=== PATIENT | male | born 1970 | race Caucasian/White ===

== ENCOUNTER → 2017-01-12 | Day surgery (SDC) | payer BC ==
[~2017-01-12] VITALS: Ht 175.3 cm; Wt 120.4 kg
[~2017-01-12] MED LIST: ACET-1256 PO; ACETAMINOPHEN 325 MG TAB PO PRN; ASPI1TAB83 PO; ATOR-24 PO; ATROPINE SULFATE 0.1 MG/ML 5ML SYR IV PRN; CHOL2000 PO; CITA20TA9 PO; CLR10 PO; FENTANYL CITRATE INJ 50 MCG/1 ML 2 ML VIAL ONE; FLUT0.15; FOLI1TAB7 PO; HEPARIN SOD (PORCINE) 1000 UNIT/ML 10 ML VIAL ONE; IMDSR30 PO; ISOSORBIDE MONONITRATE 30 MG TABCR PO SCH; LEVO1TAB35 PO; METO25TA3 PO; METO50TA16 PO; METO50TA7 PO; METOPROLOL SUCC 25MG EXT REL TAB PO ONE; METOPROLOL SUCC 50MG EXT REL TAB PO ONE; METOPROLOL SUCC 50MG EXT REL TAB PO SCH; MIDAZOLAM HCL 1 MG/ML 2ML VIAL ONE; NITROGLYCERIN/D5W 100MCG/ML 20ML SYR ONE; NTRGSL/4 SL; NiCARDipine HCL INJ 2.5 MG/ML 10 ML AMP ONE; ONDANSETRON INJ 2 MG/ML 2 ML VIAL IV PRN; PATIENT'S ALLERGY INFO NEEDS ENTERED SCH; PRLSR20 PO; SODIUM CHLORIDE 0.9% 1000ML 250 ML IV PRN; TPRSR50 PO
[2017-01-12 07:31] VITALS: BP 149/68; PULSE 68; TEMP 36.6; O2SAT 98; Ht 175.3 cm; Wt 120.4 kg
--- NOTE | 2017-01-12 07:56 | Procedure Note ---
Pre-Mod Sedation Assessment General Date of Moderate Sedation: January 12, 2017. Vital Signs: Vital Signs Past 12 Hours Date Time Temp Pulse Resp B/P Pulse Ox O2 Delivery O2 Flow Rate FiO2 01/12/17 07:31 36.6 68 16 149/68 98 Room Air Review Cardiovascular: regular rate, rhythm, no edema, no gallop Abdomen: normal bowel sounds, non tender, soft Lungs: chest non-tender, lungs clear, normal breath sounds Pre-Sedation Airway Assessment Oral Cavity: WNL Short Thick Neck: No Hx of Sleep Apnea: No Smoking Status: Never Smoker Mallampati Classification: Class III ASA Classification: Class II Procedure Planning Contraindications-for Mod Sed: None Yes Notes The planned sedation has been discussed with the patient and consent obtained. I have identified the patient, determined the appropriateness of sedation and have assessed the patient immediately prior to the procedure. All medicine(s) and interventions are by my order.
--- NOTE | 2017-01-12 07:57 | History & Physical Bridge Note ---
H&P Re-Evaluation Bridge Note: I have examined the patient, reviewed the History & Physical and in the interval since the performance of the History & Physical I have noted the following changes of clinical significance: No changes noted
--- NOTE | 2017-01-12 09:36 | Cardiac Catheterization ---
Procedure Note Procedure Date January 12, 2017. Pre-Procedure Diagnosis Angina Post-Procedure Diagnosis Severe CAD Procedure(s) Performed Coronary Angiography (Start time 08, Stop time 09, sedation RN Mary, Moderate sedation), Left Heart Cath Tack Driller Dr. Puckett Planning Feeder(s) Clarice NUTRITION SERVICES AIDE Estimated Blood Loss 5cc Medication(s) Fentanyl (37.5mcg), Versed (3mg), Lidocaine 1% Summary of Findings Multivessel CAD Hemodynamics Rest Ao: 133/80/99 Final Ao: 118/80/98 LV: 119/5/7 Recommendations CABG Specimens None Radiation Exposure (mGy) 1652 Contrast (mls) 95 Procedural Complication(s) None Disposition Web Site Developer Holding/Recovery ACC Data Cardiac Status Clinical evaluation leading to the procedure CAD Presntation: Stable angina Anginal Classification: CCS II Heart Failure: No Cardiogenic Shock w/in 24Hrs: No Cardiac Arrest w/in 24Hrs: No Imaging studies past 6 months: Yes Stress studies past 6 months: Yes Stress Echocardiogram: Yes - Negative Coronary Anatomy Dominant: Right Left Main (% Stenosis): Normal LAD (% Stenosis): Ostial (10%), Proximal (10%), Mid (90% followed by severe diffuse disease through the mid- distal segements) D1 (% Stenosis): Ostial (small caliber vessel with severe proximal-ostial disease) D2 (% Stenosis): Ostial (Moderate caliber vessel with severe (hazy appearance) ostial stenosis ), Mid (50%) Circumflex (% Stenosis): Ostial (30%), Proximal (80%), Mid (80%), Distal (10%) OM1 (% Stenosis): Mid (90%) L PL1 (% Stenosis): Ostial (Mild luminal irregularities (10%)) RCA (% Stenosis): Ostial (0%), Proximal (0%), Mid (50% followed by 70%), Distal (80% distal to PDA ) R PDA (% Stenosis): Ostial (30-40% ostial to proximal), Mid (0%), Distal R PL1 (% Stenosis): Ostial (Small vessel with mild luminal irregularities (10%) ) Diagnostic Status: Elective Closure Device Percutaneous Entry Location: Femoral Closure Device: Mynx Intraprocedure Events Significant Dissection: No Perforation: No
--- NOTE | 2017-01-12 10:33 | Discharge Instructions ---
Discharge Instructions Procedure Procedure Date: January 12, 2017. Reason for Visit: *Dr Puckett To Do* Chest Pain. Discharge Discharge Date: January 12, 2017. Discharge Diagnosis: Multivessel CAD Last Recorded Wt (Kilograms): 120.4 Anesthesia Post Anesthesia Instructions: If you have had General Anesthesia or IV Sedation: * Do not drive today. * Resume driving when surgeon permits. * Do not make important decisions or sign legal documents today. * Call surgeon for: 1. Temperature elevations greater than 101 degrees F. 2. Uncontrollable pain. 3. Excessive bleeding. 4. Persistent nausea and vomiting. 5. Medication intolerance (nausea, vomiting or rash). * For nausea and vomiting use only clear liquids such as: tea, soda, bouillon until nausea subsides, then gradually increase diet as tolerated. * If you have any concerns or questions, call your surgeon's office. If physician is unavailable and it is an emergency, call 911 or go to the nearest emergency room. Instructions Activity Recommendations: limitations as noted below Return to School/Work: with the following limitations (Patient may not return to work until cleared by cardiology) Recommended Home Diet: low sodium, low cholesterol Provider Instructions ACTIVITY RECOMMENDATIONS: It is common to feel weak and fatigue for a few days. * Do not drive or operate any motorized equipment for the next three days. * Limit stair usage (2 or 3 trips a day only) for the next three days. * Do not lift anything heavier than 10 pounds for the next three days. * Do not engage in vigorous exercise or any sports for the next five days. * You may shower the day after your procedure, but do not immerse the area for three days. Cleanse the site gently with soap and water. SPECIAL CARE INSTRUCTIONS: * You may replace the pressure dressing or band-aid the morning after the procedure. * After your procedure, it is normal to have a small bruise or small lump at the site. Examine your site daily for any change in the bruise or lump, redness, swelling, drainage or numbness. Notify your doctor if any change. BLEEDING: * If there is a small amount of bleeding at the site, lie down and apply firm pressure with a clean cloth for ten minutes. When the bleeding stops, lie quietly keeping the procedure limb straight for six hours. Notify your doctor as soon as possible. * If the bleeding does not stop after ten minutes or if there is a large amount of bleeding or spurting, call 911 immediately. Continue to lie down and hold firm pressure until help arrives. SKIN IRRITATION: * You may experience some redness and/or swelling in the area where radiation was administered. If any skin irritation occurs, please contact your family physician. FOLLOW UP VISIT: Keep any scheduled doctor appointments. Follow Up Follow-up with: Cardiothoracic Surgery as scheduled Zachary Alva Recommendations: Call your doctor if: * Temperature above 101 degrees * Pain not relieved by pain medicine ordered * There is increased drainage or redness from any incision * You have any unanswered questions or concerns. Your Doctors Instructions noted above were prepared by provider Juwan Puckett. Patient Signature Section: Patient Instructions Signature Page Mike Chaparro Patient (or Guardian) Signature/Date: I have read and understand the instructions given to me by my caregivers. Caregiver/RN/Doctor Signature/Date: The above-named patient and/or guardian has received patient instructions on this date. + Original Patient Signature Page (only) stays with chart. Please make copy for patient.
--- NOTE | 2017-01-12 10:39 | Procedure Note ---
Post-Mod Sedation Assessment General Date of Moderate Sedation January 12, 2017. Vital Signs: Vital Signs Past 12 Hours Date Time Temp Pulse Resp B/P Pulse Ox O2 Delivery O2 Flow Rate FiO2 01/12/17 10:00 71 16 166/89 95 Room Air 01/12/17 09:45 75 16 145/98 95 Room Air 01/12/17 09:30 71 16 157/97 95 Room Air 01/12/17 09:20 71 16 148/95 95 Room Air 01/12/17 09:15 70 16 144/104 95 Room Air 01/12/17 09:10 Room Air 01/12/17 09:05 71 16 150/92 96 Room Air 01/12/17 07:31 36.6 68 16 149/68 98 Room Air Review - Discharge Criteria Vital Signs Stable: Yes Alert/Oriented/Conversant: Yes Returned to Baseline Mental St: Yes Nausea Absent/Minimal: Yes Pain/Discomfort/Absent/Minimal: Yes Normal/Baseline Respirations: Yes Active Bleeding?: No Pt Received D/C Instructions: Yes Prescriptions Given: Transmitted Specific Proced. D/C Criteria Distal Pulses Present (Cardiac: Yes Groin site assessed-Card Cath: Yes Voided Prior To Discharge: Yes Discharged Patients Adult Escort/Transportation: Yes
[2017-01-12 13:00] VITALS: BP 152/90; PULSE 71; O2SAT 95
== END | disposition home or self-care (01) ==
LOC: C.CATH 07:07
PROVIDERS: ATTEND Internal Medicine Cardiovascular Disease
DX: I25.10 Atherosclerotic heart disease of native coronary artery without angina pectoris (principal); I10 Essential (primary) hypertension; E78.5 Hyperlipidemia, unspecified; F43.21 Adjustment disorder with depressed mood; E66.9 Obesity, unspecified; Z82.49 Family history of ischemic heart disease and other diseases of the circulatory system; Z79.899 Other long term (current) drug therapy

== ENCOUNTER 2017-04-02 13:04 | Emergency (ER) | payer BC ==
[~2017-04-02] VITALS: Ht 175.3 cm; Wt 110.8 kg
[~2017-04-02 13:04] MED LIST changes: -ACET-1256 PO; -ACETAMINOPHEN 325 MG TAB PO PRN; -ATROPINE SULFATE 0.1 MG/ML 5ML SYR IV PRN; -CHOL2000 PO; -FENTANYL CITRATE INJ 50 MCG/1 ML 2 ML VIAL ONE; -FOLI1TAB7 PO; -HEPARIN SOD (PORCINE) 1000 UNIT/ML 10 ML VIAL ONE; -ISOSORBIDE MONONITRATE 30 MG TABCR PO SCH; -LEVO1TAB35 PO; -METO25TA3 PO; -METO50TA16 PO; -METO50TA7 PO; -METOPROLOL SUCC 25MG EXT REL TAB PO ONE; -METOPROLOL SUCC 50MG EXT REL TAB PO ONE; -METOPROLOL SUCC 50MG EXT REL TAB PO SCH; -MIDAZOLAM HCL 1 MG/ML 2ML VIAL ONE; -NITROGLYCERIN/D5W 100MCG/ML 20ML SYR ONE; -NiCARDipine HCL INJ 2.5 MG/ML 10 ML AMP ONE; -ONDANSETRON INJ 2 MG/ML 2 ML VIAL IV PRN; -PATIENT'S ALLERGY INFO NEEDS ENTERED SCH; -SODIUM CHLORIDE 0.9% 1000ML 250 ML IV PRN
[2017-04-02 13:13] VITALS: TEMP 36.6; Ht 175.3 cm; Wt 110.8 kg
--- NOTE | 2017-04-02 14:58 | DIAGNOSTIC IMAGING REPORT ---
CHEST ONE VIEW PORTABLE HISTORY: 47 years-old Male presents with acute chest and left neck pain, worse with inspiration. COMPARISON: None available TECHNIQUE: Portable upright AP view of the chest FINDINGS: Cardiac silhouette is moderately enlarged. Prior median sternotomy. There is moderate right hemidiaphragmatic elevation with linear bibasilar opacities suggesting atelectasis. No pneumothorax, large pleural effusion or lobar airspace consolidation. Surgical clips project over the left upper abdomen. The bones appear grossly intact. IMPRESSION: 1. Cardiomegaly without overt pulmonary edema. 1. Right hemidiaphragmatic elevation with linear subsegmental bibasilar opacities suggesting atelectasis. The above report was generated using voice recognition software. It may contain grammatical, syntax or spelling errors. Electronically signed by: Matthew Zapata M.D. 04/02/2017 2:56 PM Dictated Date/Time: 04/02/2017 2:55 PM
[2017-04-02 15:25] LABS: BASO % 0.4 %; BASO ABS # 0.03 K/uL (0-0.2); COMPLETE YES; HEMATOCRIT 41.5 % (42-52); IG% 0.3 %; LYMPH % 27.7 %; LYMPH ABS # 2.13 K/uL (1.2-3.4); MEAN CELL VOLUME 84.3 fL (80-100); MEAN CORPUSCULAR HEMOGLOBIN 28.7 pg (25-34); MEAN PLATELET VOLUME 9.8 fL (7.4-10.4); MONO % 10.5 %; NEUT % 60.1 %; PLATELET COUNT 272 K/uL (130-400); RED BLOOD COUNT 4.92 M/uL (4.7-6.1); WHITE BLOOD COUNT 7.69 K/uL (4.8-10.8)
[2017-04-02 16:05] LABS: BUN/CREATININE RATIO 16.3 (10-20); CALCIUM 8.7 mg/dl (8.5-10.1); CREATININE 0.79 mg/dl (0.60-1.40); POTASSIUM 3.7 mmol/L (3.5-5.1)
[2017-04-02] MEDS ORDERED: OPTIRAY 320 IV PRN (17:45)
--- NOTE | 2017-04-02 17:47 | DIAGNOSTIC IMAGING REPORT ---
CHEST CTA for PULMONARY ARTERIES CT DOSE: 664.83 mGy.cm HISTORY: Right-sided chest pain. TECHNIQUE: Multiaxial CT images of the chest were performed following the intravenous administration of contrast to evaluate the pulmonary arteries. Maximal intensity projection images were also obtained. A dose lowering technique was utilized adhering to the principles of ALARA. COMPARISON STUDY: Chest 04/02/2017. FINDINGS: Normal caliber thoracic aorta with no evidence for dissection. The patient is status post recent coronary artery bypass graft. The grafts appear patent. Poststernotomy changes. Small pericardial effusion and trace left pleural effusion. Elevation of the right hemidiaphragm. The heart is borderline enlarged. Mild motion artifact. However, no definite filling defects within the pulmonary arteries to suggest pulmonary embolus. The visualized liver, spleen, and adrenal glands are unremarkable. No mediastinal or hilar lymphadenopathy. The central airways are patent. No pneumothorax. Patchy densities at the left lower lobe posteriorly favor mild dependent change. Linear densities within the right upper lobe are also consistent with subsegmental atelectasis. Focal area of dense consolidation at the base of the right middle lobe and right lower lobe. This likely represents atelectasis, possibly due to the elevated right hemidiaphragm. IMPRESSION: 1. No evidence for pulmonary embolus. 2. Status post recent coronary artery bypass graft. 3. Small pericardial effusion. 4. Trace left pleural effusion. 5. Elevated right hemidiaphragm with focal area of dense consolidation at the base of the right middle lobe and right lower lobe. This favors compressive atelectasis. A pneumonia could also have a similar appearance. Electronically signed by: Edwin Boyer M.D. 04/02/2017 5:45 PM Dictated Date/Time: 04/02/2017 5:34 PM
[2017-04-02] MEDS ORDERED: LEVO1TAB35 PO (18:25)
[2017-04-02] MEDS ORDERED: LEVOFLOXACIN 250 MG TAB PO ONE (18:30)
[2017-04-02 18:45] VITALS: BP 155/88; PULSE 80; O2SAT 95
--- NOTE | 2017-04-02 19:48 | EMERGENCY ROOM VISIT NOTE ---
History Report prepared by Ruslan: Bruce Cadet Under the Supervision of: Dr. Quinton Samson D.O. First contact with patient: 14:15 Chief Complaint: NECK PAIN Stated Complaint: LEFT NECK PAIN W/DEEP BREATH History of Present Illness The patient is a 47 year old male who presents to the Emergency Room with complaints of moderate left upper chest pain that began 2 days ago. His pain is exacerbated whenever he takes a deep breath. Pain is located under his first rib. When he breaths heavily, his pain also radiated down his left ribs. He has recently been more chilled than normal and sore. He denies any nausea, vomiting, diarrhea, and leg swelling. He also has been experiencing some rhinorrhea and a cough that began a couple of days ago. He has been coughing up a productive sputum but is unsure what color. He has a past medical history of a quadruple bypass open heart surgery 2 months ago. He is not on any blood thinners, does not smoke, and is trying to be more active. He also has a history of hyperlipidemia. Denies a history of diabetes, hypertension, smoking or CAD. Denies history of swelling of his legs, coughing up blood, recent trips but does admit to a recent surgery/cardiac bypass. Source of History: patient Onset: 2 days ago Position: neck Symptom Intensity: moderate Quality: sharp Timing: constant Modifying Factors (Worsening): breathing Associated Symptoms: + chills, + chest pain (left rib pain with deep inhalation), No nausea, No vomiting, No diarrhea Review of Systems See HPI for pertinent positives & negatives. A total of 10 systems reviewed and were otherwise negative. Past Medical & Surgical Medical Problems: (1) Hyperlipidemia Surgical Problems: (1) History of quadruple bypass Family History Omitted secondary to age. Social History Smoking Status: Never Smoker Smokeless Tobacco Use: No Drug Use: none Marital Status: Housing Status: lives with family Occupation Status: employed Current/Historical Medications Scheduled Aspirin (Aspirin), 1 TAB PO DAILY Atorvastatin (Lipitor), 2 TAB PO HS Citalopram Hydrobromide (Celexa), 1 TAB PO DAILY Fluticasone Propionate (Nasal) (Flonase Allergy Relief), 2 SPRAYS NA DAILY Levofloxacin (Levaquin), 750 MG PO QD@08 Loratadine (Claritin), 10 MG PO DAILY Metoprolol Succinate (Metoprolol Succinate ER), 50 MG PO QAM Nitroglycerin (Nitrostat), 1 TAB SL UD Allergies Coded Allergies: No Known Allergies (Unverified , 04/02/17) Physical Exam Vital Signs Date Time Temp Pulse Resp B/P (MAP) Pulse Ox O2 Delivery O2 Flow Rate FiO2 04/02/17 18:45 80 18 155/88 95 04/02/17 17:13 80 18 153/108 94 Room Air 04/02/17 15:15 74 18 135/88 94 Room Air 04/02/17 13:13 36.6 80 18 147/98 94 Room Air Physical Exam GENERAL: alert, well appearing, well nourished, no distress, non-toxic, sitting up in bed EYE EXAM: normal conjunctiva OROPHARYNX: no exudate, no erythema, lips, buccal mucosa, and tongue normal and mucous membranes are moist NECK: supple, no nuchal rigidity, no adenopathy, non-tender LUNGS: Faint crackles in the right base. Normal chest wall mechanics HEART: no murmurs, S1 normal and S2 normal CHEST: Old midline incision, appears to be clean, dry, and intact. ABDOMEN: abdomen soft, non-tender, normo-active bowel sounds, no masses, no rebound or guarding. BACK: Back is symmetrical on inspection and there is no deformity, no midline tenderness, no CVA tenderness. SKIN: no rashes and no bruising UPPER EXTREMITIES: upper extremities are grossly normal. LOWER EXTREMITIES: No pitting edema. Calves are equal bilaterally. NEURO EXAM: Normal sensorium, cranial nerves II-XII grossly intact, normal speech, no gross weakness of arms, no gross weakness of legs. Medical Decision & Procedures ER Provider Diagnostic Interpretation: Radiology results as stated below per my review and the radiologist's interpretation: CHEST ONE VIEW PORTABLE HISTORY: 47 years-old Male presents with acute chest and left neck pain, worse with inspiration. COMPARISON: None available TECHNIQUE: Portable upright AP view of the chest FINDINGS: Cardiac silhouette is moderately enlarged. Prior median sternotomy. There is moderate right hemidiaphragmatic elevation with linear bibasilar opacities suggesting atelectasis. No pneumothorax, large pleural effusion or lobar airspace consolidation. Surgical clips project over the left upper abdomen. The bones appear grossly intact. IMPRESSION: 1. Cardiomegaly without overt pulmonary edema. 1. Right hemidiaphragmatic elevation with linear subsegmental bibasilar opacities suggesting atelectasis. The above report was generated using voice recognition software. It may contain grammatical, syntax or spelling errors. Electronically signed by: Matthew Zapata M.D. 04/02/2017 2:56 PM Dictated Date/Time: 04/02/2017 2:55 PM CHEST CTA for PULMONARY ARTERIES CT DOSE: 664.83 mGy.cm HISTORY: Right-sided chest pain. TECHNIQUE: Multiaxial CT images of the chest were performed following the intravenous administration of contrast to evaluate the pulmonary arteries. Maximal intensity projection images were also obtained. A dose lowering technique was utilized adhering to the principles of ALARA. COMPARISON STUDY: Chest 04/02/2017. FINDINGS: Normal caliber thoracic aorta with no evidence for dissection. The patient is status post recent coronary artery bypass graft. The grafts appear patent. Poststernotomy changes. Small pericardial effusion and trace left pleural effusion. Elevation of the right hemidiaphragm. The heart is borderline enlarged. Mild motion artifact. However, no definite filling defects within the pulmonary arteries to suggest pulmonary embolus. The visualized liver, spleen, and adrenal glands are unremarkable. No mediastinal or hilar lymphadenopathy. The central airways are patent. No pneumothorax. Patchy densities at the left lower lobe posteriorly favor mild dependent change. Linear densities within the right upper lobe are also consistent with subsegmental atelectasis. Focal area of dense consolidation at the base of the right middle lobe and right lower lobe. This likely represents atelectasis, possibly due to the elevated right hemidiaphragm. IMPRESSION: 1. No evidence for pulmonary embolus. 2. Status post recent coronary artery bypass graft. 3. Small pericardial effusion. 4. Trace left pleural effusion. 5. Elevated right hemidiaphragm with focal area of dense consolidation at the base of the right middle lobe and right lower lobe. This favors compressive atelectasis. A pneumonia could also have a similar appearance. Electronically signed by: Edwin Boyer M.D. 04/02/2017 5:45 PM Dictated Date/Time: 04/02/2017 5:34 PM Laboratory Results 04/02/17 15:11 Red Blood Count 4.92, Mean Corpuscular Volume 84.3, Mean Corpuscular Hemoglobin 28.7, Mean Corpuscular Hemoglobin Concent 34.0, Mean Platelet Volume 9.8, Neutrophils (%) (Auto) 60.1, Lymphocytes (%) (Auto) 27.7, Monocytes (%) (Auto) 10.5, Eosinophils (%) (Auto) 1.0, Basophils (%) (Auto) 0.4, Neutrophils # (Auto ) 4.62, Lymphocytes # (Auto) 2.13, Monocytes # (Auto) 0.81, Eosinophils # (Auto ) 0.08, Basophils # (Auto) 0.03 04/02/17 15:11 Test 04/02/17 15:11 White Blood Count 7.69 K/uL (4.8-10.8) Red Blood Count 4.92 M/uL (4.7-6.1) Hemoglobin 14.1 g/dL (14.0-18.0) Hematocrit 41.5 % (42-52) Mean Corpuscular Volume 84.3 fL (80-100) Mean Corpuscular Hemoglobin 28.7 pg (25-34) Mean Corpuscular Hemoglobin Concent 34.0 g/dl (32-36) Platelet Count 272 K/uL (130-400) Mean Platelet Volume 9.8 fL (7.4-10.4) Neutrophils (%) (Auto) 60.1 % Lymphocytes (%) (Auto) 27.7 % Monocytes (%) (Auto) 10.5 % Eosinophils (%) (Auto) 1.0 % Basophils (%) (Auto) 0.4 % Neutrophils # (Auto) 4.62 K/uL (1.4-6.5) Lymphocytes # (Auto) 2.13 K/uL (1.2-3.4) Monocytes # (Auto) 0.81 K/uL (0.11-0.59) Eosinophils # (Auto) 0.08 K/uL (0-0.5) Basophils # (Auto) 0.03 K/uL (0-0.2) RDW Standard Deviation 43.6 fL (36.4-46.3) RDW Coefficient of Variation 14.1 % (11.5-14.5) Immature Granulocyte % (Auto) 0.3 % Immature Granulocyte # (Auto) 0.02 K/uL (0.00-0.02) D-Dimer 360 ug/L FEU (0-500) Anion Gap 5.0 mmol/L (3-11) Est Creatinine Clear Calc Drug Dose 140.3 ml/min Estimated GFR () 123.1 Estimated GFR (Non- 106.2 BUN/Creatinine Ratio 16.3 (10-20) Calcium Level 8.7 mg/dl (8.5-10.1) Total Bilirubin 0.8 mg/dl (0.2-1) Direct Bilirubin 0.2 mg/dl (0-0.2) Aspartate Amino Transf (AST/SGOT) 13 U/L (15-37) Alanine Aminotransferase (ALT/SGPT) 29 U/L (12-78) Alkaline Phosphatase 69 U/L (45-117) Troponin I < 0.015 ng/ml (0-0.045) Total Protein 7.3 gm/dl (6.4-8.2) Albumin 3.5 gm/dl (3.4-5.0) Laboratory results per my review. Medications Administered Medications (Trade) Dose Ordered Sig/Austen Route Start Time Stop Time Status Last Admin Dose Admin Levofloxacin (Levaquin Tab) 750 mg NOW ONCE PO 04/02/17 18:30 04/02/17 18:31 DC 04/02/17 18:37 750 MG ECG Indication: chest pain Rate (beats per minute): 75 Rhythm: sinus rhythm Findings: Q waves (Inferior), RBBB (incomplete) ED Course ED COURSE: Vital signs were reviewed and showed hypertension. The patients medical record was reviewed The above diagnostic studies were performed and reviewed. ED treatments and interventions as stated above. 1415: The patient was evaluated in room C10. A complete history and physical examination was performed. 1830: Ordered Levofloxacin 750 mg PO 1850: Upon reevaluation, the patient is resting. I discussed my findings with the patient and he understands and agrees with the treatment plan. The patient remained stable while under my care. The patient appeared well at the time of discharge. Medical Decision Differential diagnoses includes but is not limited to acute coronary syndrome, myocardial infarction, pericarditis, pulmonary embolus, aortic dissection, pneumonia, pneumothorax, musculoskeletal, shingles, esophageal. Patient is a 47-year-old male who presents the ER for left-sided pleuritic chest pain which located behind his left first rib. Pain is worse with deep breathing. Does not change with movement. CBC along with BMP, LFTs, bilirubin or unremarkable. Troponin was negative with pain has been present for greater than 8 hours. EKG was unremarkable. D-dimer was negative. With the pleuritic pain in the recent surgery I performed a CT PE as he did have upper respiratory symptoms including cough, runny nose and a productive sputum. CT showed possible pneumonia versus atelectasis but no PEs. Patient was given a dose of antibiotics. He was discharged follow with PCP. Discussed with Pt concerning signs and symptoms to watch out for. Pt was instructed to follow up with their PCP and discussed with the patient their option to return to the ED at anytime for persistent or worsening symptoms. The appropriate anticipatory guidance and out-patient management, including indications for return to the emergency department, were explained at length to the patient and understood. Medication Reconcilliation Current Medication List: was personally reviewed by me Blood Pressure Screening Patient's blood pressure: Elevated blood pressure Blood pressure disposition: Elevated BP felt to be situational Impression Primary Impression: Pneumonia Additional Impression: Pleurisy Scribe Attestation The scribe's documentation has been prepared under my direction and personally reviewed by me in its entirety. I confirm that the note above accurately reflects all work, treatment, procedures, and medical decision making performed by me. Departure Information Dispostion Home / Self-Care Prescriptions Levofloxacin (Levaquin) 750 Mg Tab 750 MG PO QD@08, #9 TAB Prov: Quinton Samson, DO 04/02/17 Referrals Adam Griffin M.D. (MEDICAL) (PCP) Forms HOME CARE DOCUMENTATION FORM, IMPORTANT VISIT INFORMATION, WORK / SCHOOL INSTRUCTIONS Patient Instructions My [facility], Pneumonia (Bacterial) - [facility] Additional Instructions Please follow up with your primary care doctor or if you are a student, [facility] with in the next 24 hours. Any worsening of your symptoms, please return to the ED immediately. This includes any fevers greater than 100.4, worsening pain, chest pain, shortness breath, persistent nausea, vomiting, unable to eat or drink, or any other concerning signs or symptoms from your standpoint. CT shows atelectasis vs pneumonia. You're given Levaquin to treat this as a pneumonia. Please take this antibiotic and follow-up with your PCP. Problem Qualifiers Primary Impression: Pneumonia Pneumonia type: due to unspecified organism Laterality: right Lung location : unspecified part of lung Qualified Codes: J18.9 - Pneumonia, unspecified organism
== END 2017-04-02 18:46 | disposition home or self-care (01) ==
LOC: C.EDB 13:06 → C.EDC 18:46
DX: J18.9 Pneumonia, unspecified organism (principal); R09.1 Pleurisy; I45.10 Unspecified right bundle-branch block; E78.5 Hyperlipidemia, unspecified; Z95.1 Presence of aortocoronary bypass graft; Z79.82 Long term (current) use of aspirin; Z79.899 Other long term (current) drug therapy

== ENCOUNTER 2017-05-12 23:31 | Emergency (ER) | payer BC ==
[~2017-05-12] VITALS: Ht 174 cm; Wt 109.3 kg
[~2017-05-12 23:31] MED LIST changes: -IMDSR30 PO; +LEVO1TAB35 PO; -PRLSR20 PO
[2017-05-12 23:37] VITALS: TEMP 36.9; Ht 174 cm; Wt 109.3 kg
[2017-05-12 23:55] VITALS: O2SAT 96
[2017-05-13] MEDS ORDERED: LIDOCAINE HCL 2% VISC SOLN 20 ML UDC PO STA (00:06)
[2017-05-13] MEDS ORDERED: ALUMINUM/MAGNESIUM SUSP 30 ML UDC PO STA (00:06)
[2017-05-13 00:15] LABS: BASO % 0.5 %; BASO ABS # 0.05 K/uL (0-0.2); COMPLETE YES; EOS % 1.4 %; HEMATOCRIT 45.2 % (42-52); IG% 0.2 %; LYMPH % 30.2 %; MEAN CELL VOLUME 83.9 fL (80-100); MEAN CORPUSCULAR HEMOGLOBIN 26.9 pg (25-34); MEAN CORPUSCULAR HGB CONC 32.1 g/dl (32-36); MEAN PLATELET VOLUME 10.1 fL (7.4-10.4); MONO % 9.3 %; NEUT % 58.4 %; PLATELET COUNT 301 K/uL (130-400); RED BLOOD COUNT 5.39 M/uL (4.7-6.1); WHITE BLOOD COUNT 9.26 K/uL (4.8-10.8)
[2017-05-13 00:41] LABS: ALT/SGPT 26 U/L (12-78); BLOOD UREA NITROGEN 17 mg/dl (7-18); BUN/CREATININE RATIO 20.4 (10-20); CALCIUM 8.9 mg/dl (8.5-10.1); CARBON DIOXIDE 29 mmol/L (21-32); CHLORIDE 103 mmol/L (98-107); CREATININE 0.85 mg/dl (0.60-1.40); GLUCOSE 103 mg/dl (70-99); POTASSIUM 4.1 mmol/L (3.5-5.1); SODIUM 137 mmol/L (136-145)
[2017-05-13 00:46] LABS: ALKALINE PHOSPHATASE 70 U/L (45-117); AST/SGOT 16 U/L (15-37)
[2017-05-13] MEDS ORDERED: METO50TA16 PO (00:58)
[2017-05-13] MEDS ORDERED: METO50TA7 PO (00:59)
[2017-05-13] MEDS ORDERED: FOLI1TAB7 PO (01:01)
[2017-05-13] MEDS ORDERED: ACET-1256 PO ×2 (01:04)
[2017-05-13] MEDS ORDERED: CHOL2000 PO (01:05)
[2017-05-13 02:30] VITALS: BP 128/99; PULSE 68; O2SAT 96
--- NOTE | 2017-05-13 02:41 | EMERGENCY ROOM VISIT NOTE ---
History First contact with patient: 23:59 Chief Complaint: CARDIAC ASSESSMENT Stated Complaint: CHEST PRESSURE, OPEN HEART SURG 01/26 Nursing Triage Summary: Pt reports mid chest pressure that started at 1300. Pain worsened this evening and took 1x nitro 20min [employer]. Pressure worse with deep breath. Pt states "It feels just like someone is sitting on my chest". Pain does not radiate. Denies nausea, diaphoresis, and SOB. reports pt also had chest pains Wednesday. CABG 01-26-17. Recent pneumonia in right lung. History of Present Illness The patient is a 47 year old male who presents to the Emergency Room with complaints of chest pain since this morning described as discomfort, ranging in severity currently 3 out of 10 midsternal. 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 Negative stress test 3 weeks ago. He follows at Dr. Salas. Patient tried Nitro with no change in symptoms. Patient denies dyspnea, leg pain or swelling, abdominal pain, diaphoresis, rating pain, nausea , lightheadedness, dizziness, weakness or any other medical complaints. He states this does not feel the same as his prior heart problems. Review of Systems See HPI for pertinent positives & negatives. A total of 10 systems reviewed and were otherwise negative. Past Medical/Surgical History Medical Problems: (1) Hyperlipidemia Surgical Problems: (1) History of quadruple bypass Social History Smoking Status: Never Smoker Drug Use: none Marital Status: Housing Status: lives with family Occupation Status: employed Current/Historical Medications Scheduled Aspirin (Aspirin), 81 MG PO DAILY Atorvastatin (Lipitor), 80 MG PO HS Cholecalciferol (Vitamin D3), 2,000 UNITS PO DAILY Citalopram Hydrobromide (Celexa), 20 MG PO DAILY Folic Acid (Folvite), 1 MG PO DAILY Loratadine (Claritin), 10 MG PO DAILY Metoprolol Succ (Toprol Xl) (Toprol-Xl), 50 MG PO DAILY Nitroglycerin (Nitrostat), 0.4 MG SL UD Scheduled PRN Acetaminophen (Tylenol), 500 MG PO Q8 PRN for Pain Miscellaneous Medications Acetaminophen (Tylenol), 1,000 MG PO Physical Exam Vital Signs Date Time Temp Pulse Resp B/P (MAP) Pulse Ox O2 Delivery O2 Flow Rate FiO2 05/13/17 02:30 68 18 128/99 96 Room Air 05/13/17 01:37 62 21 95 05/13/17 01:31 116/89 05/13/17 01:07 60 22 97 05/13/17 01:01 121/85 05/13/17 00:37 61 17 95 05/13/17 00:31 121/89 05/13/17 00:24 05/13/17 00:07 61 21 95 05/13/17 00:02 130/84 05/13/17 00:01 64 19 95 05/12/17 23:56 66 05/12/17 23:55 96 Room Air 05/12/17 23:51 96 Room Air 05/12/17 23:51 129/88 05/12/17 23:37 36.9 71 20 136/94 94 Room Air Physical Exam VITALS: Vitals are noted on the nurse's note and reviewed by myself. Vital signs stable. GENERAL: Pleasant male, in no acute distress, nondiaphoretic, well-developed well-nourished. SKIN: The skin was without rashes, erythema, edema, or bruising. There is no tenting of the skin. Capillary reflex less than 2 seconds. HEAD: Normocephalic atraumatic. EARS: External auditory canals clear, tympanic membranes pearly mckenzie without erythema or effusion bilaterally. EYES: Pupils equal round and reactive to light and accommodation. Conjunctivae without injection, sclerae without icterus. Extraocular movements intact. NOSE: Patent, turbinates without inflammation or discharge. MOUTH: Mucous membranes moist. Pharynx without erythema or exudate. Uvula midline. Airway patent. Tongue does not deviate. NECK: Supple without nuchal rigidity. No lymphadenopathy. No thyromegaly. Cervical spine is nontender. No JVD. HEART: Regular rate and rhythm chest nontender to palpation. No signs of infection from Recent incisional site of the chest LUNGS: Clear to auscultation bilaterally without wheezes, rales or rhonchi. No dullness to percussion. No retractions or accessory muscle use. ABDOMEN: Positive bowel sounds x 4. Normal tympanic percussion. Soft, nontender, without masses or organomegaly. Oro sign negative. No guarding or rebound tenderness. MUSCULOSKELETAL: No muscle atrophy, erythema, or edema noted. NEURO: Patient was alert and oriented to person place and time. Normal sensation to light and sharp touch. No focal neurological deficits. Medical Decision & Procedures Laboratory Results 05/12/17 23:50 Red Blood Count 5.39, Mean Corpuscular Volume 83.9, Mean Corpuscular Hemoglobin 26.9, Mean Corpuscular Hemoglobin Concent 32.1, Mean Platelet Volume 10.1, Neutrophils (%) (Auto) 58.4, Lymphocytes (%) (Auto) 30.2, Monocytes (%) (Auto) 9.3, Eosinophils (%) (Auto) 1.4, Basophils (%) (Auto) 0.5, Neutrophils # (Auto) 5.40, Lymphocytes # (Auto) 2.80, Monocytes # (Auto) 0.86, Eosinophils # (Auto) 0.13, Basophils # (Auto) 0.05 05/12/17 23:50 Test 05/12/17 23:50 05/13/17 01:58 White Blood Count 9.26 K/uL (4.8-10.8) Red Blood Count 5.39 M/uL (4.7-6.1) Hemoglobin 14.5 g/dL (14.0-18.0) Hematocrit 45.2 % (42-52) Mean Corpuscular Volume 83.9 fL (80-100) Mean Corpuscular Hemoglobin 26.9 pg (25-34) Mean Corpuscular Hemoglobin Concent 32.1 g/dl (32-36) Platelet Count 301 K/uL (130-400) Mean Platelet Volume 10.1 fL (7.4-10.4) Neutrophils (%) (Auto) 58.4 % Lymphocytes (%) (Auto) 30.2 % Monocytes (%) (Auto) 9.3 % Eosinophils (%) (Auto) 1.4 % Basophils (%) (Auto) 0.5 % Neutrophils # (Auto) 5.40 K/uL (1.4-6.5) Lymphocytes # (Auto) 2.80 K/uL (1.2-3.4) Monocytes # (Auto) 0.86 K/uL (0.11-0.59) Eosinophils # (Auto) 0.13 K/uL (0-0.5) Basophils # (Auto) 0.05 K/uL (0-0.2) RDW Standard Deviation 43.9 fL (36.4-46.3) RDW Coefficient of Variation 14.3 % (11.5-14.5) Immature Granulocyte % (Auto) 0.2 % Immature Granulocyte # (Auto) 0.02 K/uL (0.00-0.02) Anion Gap 5.0 mmol/L (3-11) Est Creatinine Clear Calc Drug Dose 128.5 ml/min Estimated GFR () 119.4 Estimated GFR (Non- 103.0 BUN/Creatinine Ratio 20.4 (10-20) Calcium Level 8.9 mg/dl (8.5-10.1) Total Bilirubin 0.5 mg/dl (0.2-1) Direct Bilirubin 0.2 mg/dl (0-0.2) Aspartate Amino Transf (AST/SGOT) 16 U/L (15-37) Alanine Aminotransferase (ALT/SGPT) 26 U/L (12-78) Alkaline Phosphatase 70 U/L (45-117) Total Protein 7.3 gm/dl (6.4-8.2) Albumin 3.6 gm/dl (3.4-5.0) Lipase 142 U/L (73-393) Troponin I < 0.015 ng/ml (0-0.045) Medications Administered Medications (Trade) Dose Ordered Sig/Austen Route Start Time Stop Time Status Last Admin Dose Admin Lidocaine HCl (Viscous Lidocaine 2% Soln) 10 ml NOW STAT PO 05/13/17 00:06 05/13/17 00:09 DC 05/13/17 00:21 10 ML Al Hydroxide/Mg Hydroxide (Maalox Susp) 30 ml NOW STAT PO 05/13/17 00:06 05/13/17 00:09 DC 05/13/17 00:21 30 ML ED Course Prior records/ancillary studies reviewed. Triage Nursing notes reviewed. Additional history obtained from family. The patient's history was concerning for chest pain. Differential diagnosis: Etiologies such as cardiac ischemia, aortic dissection, pulmonary embolism, pneumonia, pneumothorax, musculoskeletal, infections, pericarditis, myocarditis , esophageal rupture, gastrointestinal, as well as others were entertained. Physical examination: As above. ER treatment provided: Patient is given GI cocktail On reassessment the patient felt better. Diagnostic interpretation by me: The electrocardiogram was normal sinus, incomplete right bundle-branch block, no acute ST-T wave changes, normal axis, rate of 59. Impression sinus bradycardia with incomplete right bundle branch block interpreted by myself. Repeat EKG is unchanged since the rate of 63. The labs revealed negative troponin that is 2 hours apart 2 mild hyperglycemia without signs of DKA Imaging studies: Chest x-ray with no acute consolidation, pneumothorax or free air, chronically elevated right hemidiaphragm per chart review. Per my TURP rotation. Exam and history seem consistent with noncardiac chest pain. Patient unremarkable workup as above. He is well-appearing. This tolerated fluids. Patient was neurovascularly and neurologically intact. Patient is well- appearing. Patient is tolerating fluids. Patient did not have an acute abdomen on exam. Patient was ambulating without difficulties. Patient was advised to follow-up with family care and cardiology in a few days or here in the ER sooner for severe pain, fevers, chest pain, abdominal pain, worsening signs or symptoms or as needed. By the evaluation outlined above emergent etiologies such as cardiac ischemia, aortic dissection, pulmonary embolism, pneumonia, pneumothorax, infections, pericarditis, myocarditis, gastrointestinal, as well as others were deemed relatively unlikely. The pt informed about the findings as listed above. All questions were answered and pleased with the treatment. Return instructions were outlined and the patient was discharged in stable condition. Referral: The patient was referred back to primary care physician for follow-up in 2 to 3 days for a recheck of the current condition. Case reviewed with my attending Medical Decision As above Medication Reconcilliation Current Medication List: was personally reviewed by me Blood Pressure Screening Patient's blood pressure: Normal blood pressure Impression Primary Impression: Precordial chest pain Departure Information Dispostion Home / Self-Care Condition GOOD Referrals Juwan Puckett DO (PCP) Patient Instructions My [facility] Additional Instructions Ibuprofen(Motrin, Advil) may be used for fever or pain. Use 600mg every six hours as needed. Take with food. Avoid using more than 2400mg in a 24 hour period. Do not use 2400mg per day for more than three consecutive days without physician direction. Prolonged inappropriate use can lead to stomach upset or ulcers. (AND/OR) Acetaminophen(Tylenol) may be used for fever or pain. Use 1000mg every six hours as needed. Avoid using more than 3000mg in a 24 hour period. Rest and drink plenty of fluids as tolerated. Continue current medications. Avoid strenuous activities and anything that worsens your pain. Resume normal activities once your symptoms resolve. Return to the ER immediately for worsening or persistent chest pain, abdominal pain, vomiting, fevers, chest pains, difficulty breathing, worsening of your condition, or as needed. Follow up with your primary physician and/or cardiology in 2-3 days for a recheck of your current condition.
[2017-05-13] MEDS ORDERED: OXYCODONE IR HOME PACK PO ONE (02:45)
[2017-05-13] MEDS ORDERED: ONDANSETRON HOME PACK 4MG OD TAB PO ONE (02:45)
--- NOTE | 2017-05-13 06:49 | DIAGNOSTIC IMAGING REPORT ---
CHEST ONE VIEW PORTABLE CLINICAL HISTORY: CHEST PAIN dyspnea COMPARISON STUDY: 2016 FINDINGS: Chronic elevation right hemidiaphragm. Mild cardiomegaly post median sternotomy. Lungs otherwise are clear. Left hemidiaphragm is smooth. IMPRESSION: Chronic and postoperative change. No acute process. The above report was generated using voice recognition software. It may contain grammatical, syntax or spelling errors. Electronically signed by: Sesar Claire M.D. 05/13/2017 6:47 AM Dictated Date/Time: 05/13/2017 6:47 AM
== END 2017-05-13 02:57 | disposition home or self-care (01) ==
LOC: C.EDB 23:33 → C.EDA 05-13 02:57
DX: R07.2 Precordial pain (principal); Z95.1 Presence of aortocoronary bypass graft; Z87.01 Personal history of pneumonia (recurrent); E78.5 Hyperlipidemia, unspecified; Z79.82 Long term (current) use of aspirin; Z79.899 Other long term (current) drug therapy

== ENCOUNTER 2017-09-14 07:50 | Observation (INO) | payer BC, OTHER ==
[~2017-09-14] VITALS: Ht 175.3 cm; Wt 106.8 kg
[~2017-09-14 07:50] MED LIST changes: +ACET-1256 PO; +CHOL2000 PO; -FLUT0.15; +FOLI1TAB8 PO; -LEVO1TAB35 PO; +METO50TA7 PO; -TPRSR50 PO
[2017-09-14] MEDS ORDERED: ONDANSETRON INJ 2 MG/ML 2 ML VIAL ONE (08:06)
[2017-09-14] MEDS ORDERED: SODIUM CHLORIDE 0.9% 1000ML 1,000 ML IV STA (08:11)
[2017-09-14 08:27] LABS: BASO % 0.5 %; BASO ABS # 0.04 K/uL (0-0.2); EOS % 0.9 %; EOS ABS # 0.07 K/uL (0-0.5); HEMATOCRIT 42.1 % (42-52); HEMOGLOBIN 14.8 g/dL (14.0-18.0); IG# 0.02 K/uL (0.00-0.02); LYMPH % 28.5 %; LYMPH ABS # 2.22 K/uL (1.2-3.4); MEAN CELL VOLUME 83.9 fL (80-100); MEAN CORPUSCULAR HEMOGLOBIN 29.5 pg (25-34); MEAN CORPUSCULAR HGB CONC 35.2 g/dl (32-36); MEAN PLATELET VOLUME 10.5 fL (7.4-10.4); MONO ABS # 0.47 K/uL (0.11-0.59); NEUT % 63.8 %; NEUT ABS # 4.97 K/uL (1.4-6.5); PLATELET COUNT 224 K/uL (130-400); RED CELL DISTRIBUTION WIDTH CV 13.8 % (11.5-14.5); WHITE BLOOD COUNT 7.79 K/uL (4.8-10.8)
[2017-09-14 08:38] LABS: PTT PATIENT 23.5 SECONDS (21.0-31.0)
[2017-09-14] MEDS ORDERED: SODIUM CHLORIDE 0.9% 500ML 500 ML IV STA (08:45)
--- NOTE | 2017-09-14 08:45 | DIAGNOSTIC IMAGING REPORT ---
CHEST ONE VIEW PORTABLE HISTORY: EVALUATE WEAKNESS COMPARISON: Chest 05/13/2017. FINDINGS: The heart remains mildly enlarged. There are poststernotomy changes. Slight elevation the right hemidiaphragm, unchanged. No focal lung consolidations to suggest pneumonia. No evidence for pulmonary edema. No pleural effusions. No pneumothorax. IMPRESSION: No acute process. Electronically signed by: Edwin Boyer M.D. 09/14/2017 8:43 AM Dictated Date/Time: 09/14/2017 8:41 AM
--- NOTE | 2017-09-14 08:48 | EMERGENCY ROOM VISIT NOTE ---
History Report prepared by Ruslan: Suleman Rivera Under the Supervision of: Dr. Thomas Mas M.D. First contact with patient: 08:11 Chief Complaint: ILLNESS Stated Complaint: HYPOTENSION/ILLNESS/NAUSEA History of Present Illness The patient is a 47 year old male who presents to the Emergency Room with complaints of fatigue and dizziness that onset this morning, shortly prior to arrival. 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 He stood up to walk up stairs and go to bed after taking his meds, and was not able to make it all the way up the stairs. He became significantly dizzy and had to walk back down the steps and lower himself to the ground. As he laid down on the floor her vomited twice. The patient noted that when he was sat up for his chest x-ray in the department he became dizzy again. He is still tired currently as well. He denies any associated LOC, headache, fevers, chills, diaphoresis, visual changes , neck pain, chest pain, breathing difficulties, abdominal pain, back pain, melena, hematochezia, urinary symptoms, numbness, weakness, lymphadenopathy, rash, or other complaints. Source of History: patient Onset: this morning shortly [employer]AW[employer] P[employer]ER Position: head Quality: other (Dizziness) Associated Symptoms: + vomiting, No chest pain Review of Systems See HPI for pertinent positives and negatives. A total of ten systems were reviewed and were otherwise negative. Past Medical & Surgical Medical Problems: (1) CAD (coronary artery disease) (2) Chest pain (3) Dizziness (4) HTN (hypertension) (5) Hyperlipidemia (6) Pleurisy (7) Pneumonia Surgical Problems: (1) History of quadruple bypass (2) Hx of CABG Family History Heart disease Hypertension Social History Smoking Status: Never Smoker Drug Use: none Marital Status: Housing Status: lives with family Occupation Status: employed Current/Historical Medications Scheduled Aspirin (Aspirin), 81 MG PO DAILY Atorvastatin (Lipitor), 80 MG PO HS Cholecalciferol (Vitamin D3), 2,000 UNITS PO DAILY Citalopram Hydrobromide (Celexa), 20 MG PO DAILY Folic Acid (Folic Acid), 1 TAB PO DAILY Loratadine (Claritin), 10 MG PO DAILY Metoprolol Succ (Toprol Xl) (Toprol-Xl), 50 MG PO DAILY Nitroglycerin (Nitrostat), 0.4 MG SL UD Scheduled PRN Acetaminophen (Tylenol), 1,000 MG PO Q8 PRN for Pain or Fever Trazodone Hcl (Trazodone), 2 TABS PO HS PRN for Sleep Allergies Coded Allergies: No Known Allergies (Unverified , 04/02/17) Physical Exam Vital Signs Date Time Temp Pulse Resp B/P (MAP) Pulse Ox O2 Delivery O2 Flow Rate FiO2 09/14/17 09:45 74 18 112/73 97 2.0 09/14/17 08:16 62 114/73 95 Nasal Cannula 2.0 09/14/17 08:00 97 Nasal Cannula 2.0 09/14/17 08:00 36.5 64 20 108/76 95 Room Air 09/14/17 08:00 62 Physical Exam GENERAL: Awake, alert, tired-appearing, in no distress HENT: Normocephalic, atraumatic. Oropharynx unremarkable. EYES: Normal conjunctiva. Sclera non-icteric. NECK: Supple. No nuchal rigidity. FROM. No JVD. RESPIRATORY: Clear to auscultation. CARDIAC: Regular rate, normal rhythm. Extremities warm and well perfused. Pulses equal. ABDOMEN: Soft, non-distended. No tenderness to palpation. No rebound or guarding. No masses. RECTAL: Deferred. MUSCULOSKELETAL: Chest examination reveals no tenderness. The back is symmetrical on inspection without obvious abnormality. There is no CVA tenderness to palpation. No joint edema. LOWER EXTREMITIES: Calves are equal size bilaterally and non-tender. No edema. No discoloration. NEURO: Normal sensorium. No sensory or motor deficits noted. SKIN: No rash or jaundice noted. Medical Decision & Procedures ER Provider Diagnostic Interpretation: Radiology results as stated below per my review and radiologist interpretation: CHEST ONE VIEW PORTABLE HISTORY: EVALUATE WEAKNESS COMPARISON: Chest 05/13/2017. FINDINGS: The heart remains mildly enlarged. There are poststernotomy changes. Slight elevation the right hemidiaphragm, unchanged. No focal lung consolidations to suggest pneumonia. No evidence for pulmonary edema. No pleural effusions. No pneumothorax. IMPRESSION: No acute process. Electronically signed by: Edwin Boyer M.D. 09/14/2017 8:43 AM Dictated Date/Time: 09/14/2017 8:41 AM Laboratory Results 09/14/17 08:13 Red Blood Count 5.02, Mean Corpuscular Volume 83.9, Mean Corpuscular Hemoglobin 29.5, Mean Corpuscular Hemoglobin Concent 35.2, Mean Platelet Volume 10.5, Neutrophils (%) (Auto) 63.8, Lymphocytes (%) (Auto) 28.5, Monocytes (%) (Auto) 6.0, Eosinophils (%) (Auto) 0.9, Basophils (%) (Auto) 0.5, Neutrophils # (Auto) 4.97, Lymphocytes # (Auto) 2.22, Monocytes # (Auto) 0.47, Eosinophils # (Auto) 0.07, Basophils # (Auto) 0.04 09/14/17 08:13 Test 09/14/17 08:13 09/14/17 09:40 White Blood Count 7.79 K/uL (4.8-10.8) Red Blood Count 5.02 M/uL (4.7-6.1) Hemoglobin 14.8 g/dL (14.0-18.0) Hematocrit 42.1 % (42-52) Mean Corpuscular Volume 83.9 fL (80-100) Mean Corpuscular Hemoglobin 29.5 pg (25-34) Mean Corpuscular Hemoglobin Concent 35.2 g/dl (32-36) Platelet Count 224 K/uL (130-400) Mean Platelet Volume 10.5 fL (7.4-10.4) Neutrophils (%) (Auto) 63.8 % Lymphocytes (%) (Auto) 28.5 % Monocytes (%) (Auto) 6.0 % Eosinophils (%) (Auto) 0.9 % Basophils (%) (Auto) 0.5 % Neutrophils # (Auto) 4.97 K/uL (1.4-6.5) Lymphocytes # (Auto) 2.22 K/uL (1.2-3.4) Monocytes # (Auto) 0.47 K/uL (0.11-0.59) Eosinophils # (Auto) 0.07 K/uL (0-0.5) Basophils # (Auto) 0.04 K/uL (0-0.2) RDW Standard Deviation 42.0 fL (36.4-46.3) RDW Coefficient of Variation 13.8 % (11.5-14.5) Immature Granulocyte % (Auto) 0.3 % Immature Granulocyte # (Auto) 0.02 K/uL (0.00-0.02) Prothrombin Time 10.8 SECONDS (9.0-12.0) Prothromb Time International Ratio 1.0 (0.9-1.1) Activated Partial Thromboplast Time 23.5 SECONDS (21.0-31.0) Partial Thromboplastin Ratio 0.9 Anion Gap 7.0 mmol/L (3-11) Est Creatinine Clear Calc Drug Dose 122.2 ml/min Estimated GFR () 116.6 Estimated GFR (Non- 100.6 BUN/Creatinine Ratio 14.2 (10-20) Calcium Level 8.8 mg/dl (8.5-10.1) Magnesium Level 2.2 mg/dl (1.8-2.4) Total Bilirubin 0.5 mg/dl (0.2-1) Direct Bilirubin 0.1 mg/dl (0-0.2) Aspartate Amino Transf (AST/SGOT) 19 U/L (15-37) Alanine Aminotransferase (ALT/SGPT) 28 U/L (12-78) Alkaline Phosphatase 56 U/L (45-117) Total Creatine Kinase 109 U/L (39-308) Creatine Kinase MB 1.2 ng/ml (0.5-3.6) Creatine Kinase MB Ratio 1.1 (0-3.0) Total Protein 6.6 gm/dl (6.4-8.2) Albumin 3.7 gm/dl (3.4-5.0) Thyroid Stimulating Hormone (TSH) 3.300 uIu/ml (0.300-4.500) Urine Color YELLOW Urine Appearance CLEAR (CLEAR) Urine pH 7.0 (4.5-7.5) Urine Specific [place] 1.023 (1.000-1.030) Urine Protein NEG (NEG) Urine Glucose (UA) NEG (NEG) Urine Ketones NEG (NEG) Urine Occult Blood NEG (NEG) Urine Nitrite NEG (NEG) Urine Bilirubin NEG (NEG) Urine Urobilinogen NEG (NEG) Urine Leukocyte Esterase NEG (NEG) Urine Opiates Screen NEG (NEG) Urine Methadone, Qualitative NEG (NEG) Urine Barbiturates NEG (NEG) Urine Phencyclidine (PCP) Level NEG (NEG) Ur Amphetamine/Methamphetamine NEG (NEG) MDMA (Ecstasy) Screen NEG (NEG) Urine Benzodiazepines Screen NEG (NEG) Urine Cocaine Metabolite NEG (NEG) Urine Marijuana (THC) NEG (NEG) Laboratory results reviewed by me Medications Administered Medications (Trade) Dose Ordered Sig/Austen Route Start Time Stop Time Status Last Admin Dose Admin Sodium Chloride 1,000 ml @ 125 mls/hr Q8H STAT IV 09/14/17 08:11 09/14/17 11:23 DC 09/14/17 08:27 125 MLS/HR Sodium Chloride 500 ml @ 999 mls/hr Q31M STAT IV 09/14/17 08:45 09/14/17 09:15 DC 09/14/17 08:48 999 MLS/HR ECG Indication: other (Dizziness) Rate (beats per minute): 57 Rhythm: sinus bradycardia Findings: nonspecific-ST abn, RBBB (incomplete), no ectopy Change: REPEAT ECG ON VISIT: Normal Sinus, 62 BPM. Incomplete RBBB, no ischemia. T-wave inversions in lateral leads were not present on first ECG. Patient's electrocardiogram per my interpretation. ED Course 0811: Ordered Sodium Chloride 1000 mL @ 125 mL/hr IV. 0838: The patient was evaluated in room B2. A complete history and physical exam was performed. 0845: Ordered Sodium Chloride 500 mL @ 999 mL/hr IV. 0958: I discussed the case with Alicja Gonzalez PA-C. She will evaluate the patient for further treatment. Medical Decision Prior records/ancillary studies reviewed. Triage Nursing notes reviewed and agree them. Additional history obtained from the family. The patient's history was concerning for weakness, hypotension and chest pain. Differential diagnosis: Etiologies such as cardiac ischemia, aortic dissection, pulmonary embolism, pneumonia, pneumothorax, musculoskeletal, infections, pericarditis, myocarditis , esophageal rupture, gastrointestinal, as well as others were entertained. Physical examination: As above. ER treatment provided: Normal saline hydration On reassessment the patient felt better. Diagnostic interpretation by me: The electrocardiogram was negative for pathologic change 2 The labs revealed an unremarkable CBC and chemistry panel. Cardiac markers negative. Imaging studies: Chest x-ray and CT scan as above The patient had an episode of hypotension and nausea. He also had some intermittent chest pain earlier in the evening. The patient thought that he may have taken an extra dose of his metoprolol however his symptoms started within 15 minutes of taking the suspected extra dose. The patient is not significantly bradycardic or hypotensive at this time. He was orthostatic. Further management in the hospital is necessary. Consultation: A consultation was placed with the hospitalist. The case was discussed and diagnostics were reviewed. The patient was evaluated in the ER for further treatment. Consults Time Called: [phone] Consulting Physician: Alicja Gonzalez PA-C Returned Call: [phone] I discussed the case with Alicja Gonzalez PA-C. She will evaluate the patient for further treatment. Impression Primary Impression: Hypotension Additional Impression: Chest pain Scribe Attestation The scribe's documentation has been prepared under my direction and personally reviewed by me in its entirety. I confirm that the note above accurately reflects all work, treatment, procedures, and medical decision making performed by me. Departure Information Dispostion Being Evaluated By Hospitalist Referrals Juwan Puckett DO (PCP) Patient Instructions My [facility] Problem Qualifiers
[2017-09-14 08:49] LABS: ALBUMIN 3.7 gm/dl (3.4-5.0); ALT/SGPT 28 U/L (12-78); AST/SGOT 19 U/L (15-37); BLOOD UREA NITROGEN 13 mg/dl (7-18); CALCIUM 8.8 mg/dl (8.5-10.1); CARBON DIOXIDE 29 mmol/L (21-32); GLUCOSE 106 mg/dl (70-99); POTASSIUM 3.2 mmol/L (3.5-5.1); SODIUM 136 mmol/L (136-145)
[2017-09-14] MEDS ORDERED: OPTIRAY 320 IV PRN (09:00)
[2017-09-14 09:01] LABS: ALKALINE PHOSPHATASE 56 U/L (45-117); CKMB 1.2 ng/ml (0.5-3.6); TOTAL PROTEIN 6.6 gm/dl (6.4-8.2)
[2017-09-14] MEDS ORDERED: [UNRECOGNIZED DRUG - CODE] (09:30)
[2017-09-14] MEDS ORDERED: TRAZ50TA35 PO (09:30)
--- NOTE | 2017-09-14 09:39 | DIAGNOSTIC IMAGING REPORT ---
(CHEST FOR PE) ANGIO WITH CT DOSE: 540.88 mGycm HISTORY: 47 years-old Male presents with acute hypotension and nausea TECHNIQUE: Multiple CTA images of the chest were obtained after the intravenous administration of 95 ml Optiray 320. Coronal and sagittal MIPS were obtained from the axial data set and were submitted for review. A dose lowering technique was utilized adhering to the principles of ALARA. COMPARISON: Chest radiograph 09/14/2017, CTA chest 2016. FINDINGS: CTA: There is mild to moderate multichamber cardiac enlargement. Prior median sternotomy and CABG. [place] coronary arterial disease. Aortic annular calcifications are noted. No pericardial effusion. Mild atherosclerosis of the thoracic aorta without aneurysm or dissection identified. The left vertebral artery emanates strictly from the aortic arch. The pulmonary arterial tree is opacified to level of the segmental branches. The subsegmental branches are not well opacified. No focal filling defects identified to suggest pulmonary thromboembolic disease. CT CHEST: No dominant thyroid nodule or pathologic adenopathy identified. There is no pneumothorax, pleural effusion, focal airspace consolidation or overt pulmonary edema. Subsegmental bibasilar atelectasis. 4 mm solid nodule of the left lower lobe as seen on image 17 series 4. No focal airspace consolidation to suggest pneumonia. Central airways are patent. No acute abnormality of the imaged upper abdomen. The soft tissues are unremarkable. Mild bilateral gynecomastia. Bones appear intact. Mild multilevel endplate spurring of the spine. IMPRESSION: 1. No acute intrathoracic abnormality identified. No acute aortic pathology or evidence of pulmonary thromboembolic disease. 2. Cardiomegaly with prior median sternotomy and CABG. 3. 4 mm solid noncalcified pulmonary nodule of the posterior basal segment left lower lobe. The above report was generated using voice recognition software. It may contain grammatical, syntax or spelling errors. Electronically signed by: Matthew Zapata M.D. 09/14/2017 9:38 AM Dictated Date/Time: 09/14/2017 9:32 AM
[2017-09-14] MEDS ORDERED: ACETAMINOPHEN 325 MG TAB PO PRN (10:45)
[2017-09-14] MEDS ORDERED: POLYETHYLENE (MIRALAX) 17 GM PACK PO PRN (10:45)
[2017-09-14] MEDS ORDERED: ONDANSETRON INJ 2 MG/ML 2 ML VIAL IV PRN (10:45)
[2017-09-14] MEDS ORDERED: NITROGLYCERIN 0.4 MG SL PER TAB CHARGE SL PRN (10:45)
[2017-09-14] MEDS ORDERED: FLV1 PO (11:03)
[2017-09-14] MEDS ORDERED: CLR10 PO (11:03)
[2017-09-14] MEDS ORDERED: POTASSIUM CHLORIDE 10 MEQ TABCR PO STA (11:15)
[2017-09-14] MEDS ORDERED: TRAZODONE HCL 50 MG TAB PO PRN (11:30)
--- NOTE | 2017-09-14 11:58 | History and Physical ---
History & Physical Date & Time of Service: Sep 14, 2017 at 11:27 Chief Complaint: Hypotension/Illness/Nausea Primary Care Physician: Adam Griffin M.D. (MEDICAL) History of Present Illness Source: patient, spouse, clinic records, hospital records Pt is 47 y/o M with PMH CAD, s/p CABG in 01/2017, dyslipidemia, HTN, incomplete RBBB, anxiety, depression presented to ER with c/o dizziness. 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 States was sitting on couch and approx 15 minutes later he stood up and felt dizzy and light headed and vomited x 2. He states was so dizzy/light headed he had to lie down supine. His spouse reports she took his BP and was 70's systolic. EMS was called and reported pt was given IVF and zofran. Denies any CP or SOB, GALAN or syncope. Hasn't had to use nitro for several months. States some nasal congestion for past 2 weeks and taking loratadine. Denies taking other OTC meds or supplements. He states that has been eating and drinking and denies skipping meals. Drinking approx 60 ounces of water a day. States last night one water bottle and drank coffee and monster energy drink. No further nausea or vomiting. Denies fever/chills, diaphoresis, D/C, GALAN, vision changes, neck pain, CP, SOB, orthopnea, palpitations, cough, sore throat, choking, otalgia, sinus/facial tenderness, abdominal pain, hematemesis, paresthesias, weakness, extremity weakness, extremity edema, rashes, urinary symptoms. Denies drug use, recent ETOH use. In ER pt BP systolic low 100's. P: 60's. Had dizziness with sitting up. Received 500ml bolus NSS and running at 125ml/hr. Pt states now feels less dizzy and not as dizzy with sitting up. WBC: 7, K: 3.2. Negative troponin. negative U/A, TSH: 3.3. negative troponin. EKG: sinus carrie 57, incomplete RBBB. Negative CT chest for PE. Hx stress test: 04/08: EF: 55-60%, no inducible ischemia, no wall abnormality Hx echo 05/09: EF: 50-54%, AV sclerosis without stenosis, LF diastolic function mildly abnormal Past Medical/Surgical History Medical Problems: (1) CAD (coronary artery disease) Status: Chronic (2) Chest pain Status: Resolved (3) HTN (hypertension) Status: Chronic (4) Hyperlipidemia Status: Chronic (5) Pleurisy Status: Resolved (6) Pneumonia Status: Resolved Surgical Problems: (1) History of quadruple bypass Status: Resolved (2) Hx of CABG Permanent Comment: 01/26/2017- [facility] [place] - Dr Gonsalez Status: Resolved Family History Heart disease Hypertension Social History Smoking Status: Never Smoker Smokeless Tobacco Use: No Alcohol Use: occasionally Drug Use: none Marital Status: Housing status: lives with significant other Occupational Status: employed Allergies Coded Allergies: No Known Allergies (Unverified , 04/02/17) Home Medications Scheduled Aspirin (Aspirin), 81 MG PO DAILY Atorvastatin (Lipitor), 80 MG PO HS Cholecalciferol (Vitamin D3), 2,000 UNITS PO DAILY Citalopram Hydrobromide (Celexa), 20 MG PO DAILY Folic Acid (Folic Acid), 1 TAB PO DAILY Loratadine (Claritin), 10 MG PO DAILY Metoprolol Succ (Toprol Xl) (Toprol-Xl), 50 MG PO DAILY Nitroglycerin (Nitrostat), 0.4 MG SL UD Scheduled PRN Acetaminophen (Tylenol), 1,000 MG PO Q8 PRN for Pain or Fever Trazodone Hcl (Trazodone), 2 TABS PO HS PRN for Sleep Review of Systems Constitutional: No fever, No chills, No sweats, No weight loss, No weakness, No fatigue Eyes: No worsening of vision, No eye pain, No redness, No discharge, No diplopia ENT: + problem reported, No hearing loss, No unusual epistaxis, No sore throat , No tinnitus, No trouble swallowing Respiratory: No cough, No sputum, No wheezing, No shortness of breath, No dyspnea on exertion, No dyspnea at rest, No hemoptysis Cardiovascular: + palpitations, No chest pain, No orthopnea, No PND, No edema, No problem reported Abdomen: No pain, No diarrhea, No constipation, No GI bleeding Musculoskeletal: No joint pain, No muscle pain, No swelling, No calf pain Genitourinary - Male: No hematuria, No dysuria, No urinary frequency, No urinary urgency, No urinary hesitancy, No urinary retention Neurologic: No paralysis, No weakness, No numbness/tingling, No vertigo Endocrine: No excessive thirst Hematologic / Lymphatic: No abnormal bleeding/bruising, No clotting problems, No night sweats Integumentary: No rash, No itch Physical Exam Vital Signs Date Time Temp Pulse Resp B/P (MAP) Pulse Ox O2 Delivery O2 Flow Rate FiO2 09/14/17 10:59 60 09/14/17 09:45 74 18 112/73 97 2.0 09/14/17 08:16 62 114/73 95 Nasal Cannula 2.0 09/14/17 08:00 97 Nasal Cannula 2.0 09/14/17 08:00 36.5 64 20 108/76 95 Room Air 09/14/17 08:00 62 General Appearance: WD/WN, no apparent distress Head: normocephalic, atraumatic Eyes: normal inspection, PERRL, EOMI, sclerae normal ENT: hearing grossly normal, pharynx normal, + pertinent finding (mucous membranes mildly dry) Neck: supple, no JVD, trachea midline Respiratory/Chest: chest non-tender, lungs clear, normal breath sounds, no respiratory distress, no accessory muscle use Cardiovascular: regular rate, rhythm, no edema, no murmur, normal peripheral pulses Abdomen/GI: normal bowel sounds, non tender, soft Extremities/Musculoskelatal: normal inspection, no pedal edema, normal range of motion, non-tender Neurologic/Psych: alert, normal mood/affect, oriented x 3 Skin: normal color, warm/dry Diagnostics Laboratory Results Results Past 24 Hours Test 09/14/17 08:13 09/14/17 09:40 Range/Units White Blood Count 7.79 4.8-10.8 K/uL Red Blood Count 5.02 4.7-6.1 M/uL Hemoglobin 14.8 14.0-18.0 g/dL Hematocrit 42.1 42-52 % Mean Corpuscular Volume 83.9 80-100 fL Mean Corpuscular Hemoglobin 29.5 25-34 pg Mean Corpuscular Hemoglobin Concent 35.2 32-36 g/dl Platelet Count 224 130-400 K/uL Mean Platelet Volume 10.5 7.4-10.4 fL Neutrophils (%) (Auto) 63.8 % Lymphocytes (%) (Auto) 28.5 % Monocytes (%) (Auto) 6.0 % Eosinophils (%) (Auto) 0.9 % Basophils (%) (Auto) 0.5 % Neutrophils # (Auto) 4.97 1.4-6.5 K/uL Lymphocytes # (Auto) 2.22 1.2-3.4 K/uL Monocytes # (Auto) 0.47 0.11-0.59 K/uL Eosinophils # (Auto) 0.07 0-0.5 K/uL Basophils # (Auto) 0.04 0-0.2 K/uL RDW Standard Deviation 42.0 36.4-46.3 fL RDW Coefficient of Variation 13.8 11.5-14.5 % Immature Granulocyte % (Auto) 0.3 % Immature Granulocyte # (Auto) 0.02 0.00-0.02 K/uL Prothrombin Time 10.8 9.0-12.0 SECONDS Prothromb Time International Ratio 1.0 0.9-1.1 Activated Partial Thromboplast Time 23.5 21.0-31.0 SECONDS Partial Thromboplastin Ratio 0.9 Sodium Level 136 136-145 mmol/L Potassium Level 3.2 3.5-5.1 mmol/L Chloride Level 100 98-107 mmol/L Carbon Dioxide Level 29 21-32 mmol/L Anion Gap 7.0 3-11 mmol/L Blood Urea Nitrogen 13 7-18 mg/dl Creatinine 0.90 0.60-1.40 mg/dl Est Creatinine Clear Calc Drug Dose 122.2 ml/min Estimated GFR () 116.6 Estimated GFR (Non- 100.6 BUN/Creatinine Ratio 14.2 10-20 Random Glucose 106 70-99 mg/dl Calcium Level 8.8 8.5-10.1 mg/dl Magnesium Level 2.2 1.8-2.4 mg/dl Total Bilirubin 0.5 0.2-1 mg/dl Direct Bilirubin 0.1 0-0.2 mg/dl Aspartate Amino Transf (AST/SGOT) 19 15-37 U/L Alanine Aminotransferase (ALT/SGPT) 28 12-78 U/L Alkaline Phosphatase 56 45-117 U/L Total Creatine Kinase 109 39-308 U/L Creatine Kinase MB 1.2 0.5-3.6 ng/ml Creatine Kinase MB Ratio 1.1 0-3.0 Troponin I < 0.015 0-0.045 ng/ml Total Protein 6.6 6.4-8.2 gm/dl Albumin 3.7 3.4-5.0 gm/dl Thyroid Stimulating Hormone (TSH) 3.300 0.300-4.500 uIu/ml Urine Color YELLOW Urine Appearance CLEAR CLEAR Urine pH 7.0 4.5-7.5 Urine Specific [place] 1.023 1.000-1.030 Urine Protein NEG NEG Urine Glucose (UA) NEG NEG Urine Ketones NEG NEG Urine Occult Blood NEG NEG Urine Nitrite NEG NEG Urine Bilirubin NEG NEG Urine Urobilinogen NEG NEG Urine Leukocyte Esterase NEG NEG Diagnostic Radiology CXR: IMPRESSION: No acute process. CT CHEST: IMPRESSION: 1. No acute intrathoracic abnormality identified. No acute aortic pathology or evidence of pulmonary thromboembolic disease. 2. Cardiomegaly with prior median sternotomy and CABG. 3. 4 mm solid noncalcified pulmonary nodule of the posterior basal segment left lower lobe. EKG EKG: sinus carrie, rate 57, incomplete RBBB Impression Assessment and Plan DIZZINESS, HYPOTENSION Pt with onset dizziness, lightheadedness this am with standing. Reported systolic BP in 70's at home per . Denies GALAN, CP, SOB, syncope. ?extra dose of metoprolol this morning, however symptoms started approx 15 minutes after taking meds this morning. DDX: orthostatic hypotension, dehydration, vasovagal episode, arrhythmia. Seems more orthostatic hypotension at this time. In ER BP 108/76, P: 60's. Negative initial troponin. Glucose: 106, negative U/A, no leukocytosis. TSH: 3.3. EKG: no acute changes, sinus carrie rate 57. Negative CT chest for PE. No signs of infection at this time. Pt responded well to IVF with decreased dizziness. Will do orthostatics. -urine tox screen added -Tele to monitor for arrhythmias -serial troponin -echo -IVF -decrease metoprolol dose from 50mg daily to 25mg daily starting tomorrow with holding parameters -cardiology consult HYPOKALEMIA K: 3.2 Replace and monitor CAD S/P CABG No CP -continue ASA, statin -decrease metoprolol dose at this time DYSLIPIDEMIA Lipid panel 08/06/17: total: 210, LDL: 123, HDL: 35, Triglycerides: 262 -Continue statin ANXIETY/DEPRESSION stable -Continue celexa and trazodone HS prn insomnia PULMONARY NODULE CT CHEST today: 4 mm solid noncalcified pulmonary nodule of the posterior basal segment left lower lobe -plan for out pt follow up DVT PROPHYLAXIS -Lovenox DISPOSITION -admit tele obs -Full Code -Follows with Dr Griffin for routine care Pt was seen with Dr Pereira. 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 , was drinking mainly coffee today he came home form work at 5: 30 am , had no symptom of dizzy spell or fatigue took his AM meds Toprol XL 50 approx 15-20 mins later -he felt dizzy , lightheaded, nauseous had to lay down on floor checked his BP -his systolic blood pressure was approx 70's called 911 pt was given fluid bolus in ER pt remains markedly orthostatic with symptom to dizzy spell on sitting up and standing Lab was unremarkable , no evidence of infection , no report of fever or chills EKG was unchanged from before pt's BP and symptom improved after continued IV hydration P/E: gen : very pleasant , no sign of distress HEENT: scleral non icteric , PERRLA/EOMI Ht; regular S1/S2 Lungs: CTA abdomen; soft, non tender ext : no lower ext edema, no rash or deformity Neuro : no focal deficit, AAO x3 A/P : HYPOTENSION /DIZZY SPELL possible due to dehydration/not drinking enough water has been taking caffeine beverages -causing diuretic effect symptom was worse after taking Toprol XL 50 mg this AM -causing profound hypotensive effect no evidence of sepsis no cardiac issues -ECHO unchanged form prior pt given IV fluid bolus in ER continued with NSS @ 125 mg /hr feels much better during my interview -BP stable , no dizzy spell Toprol XL is kept on hold appreciate Cardiology eval recommend to continue to correct dehydration with IV fluids D/c Toprol XL Ankita Pereira MD Level of Care Telemetry Resuscitation Status FULL RESUSCITATION VTE Prophylaxis VTE Risk Assessment Done? Y/N: Yes Risk Level: Moderate Given or contraindicated: Enoxaparin (Lovenox)SQ Additional Copies To Adam Griffin M.D. (MEDICAL)
[2017-09-14] MEDS ORDERED: IV FLUIDS COMPLETED PRN (12:15)
[2017-09-14 12:30] VITALS: BP 111/67; PULSE 62; TEMP 36.4; O2SAT 95; Ht 175.3 cm; Wt 106.8 kg
[2017-09-14] MEDS: SODIUM CHLORIDE 0.9% 1000ML 1,000 ML IV SCH ×2 (14:11→21:31)
[2017-09-14 15:20] VITALS: BP 119/71; PULSE 61; TEMP 36.7; O2SAT 94
[2017-09-14 16:00] VITALS: O2SAT 94
--- NOTE | 2017-09-14 16:42 | CARDIOLOGY CONSULTATION ---
DATE OF CONSULTATION: 09/14/2017 INPATIENT CARDIOLOGY CONSULTATION CONSULTATION REQUESTED BY: Dr. Pereira. REASON FOR CONSULTATION: Presyncope. HISTORY OF PRESENT ILLNESS: Mr. Chaparro is a very pleasant 47-year-old gentleman who normally follows with Dr. Puckett of our cardiology practice for his history of coronary artery disease. He presented to [facility] Emergency Department in the a.m. of 09/14/2017 with a complaint of a presyncopal spell. 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 He took his normal a.m. meds and was getting ready to go to bed, but when he stood up, became severely lightheaded and nauseated. It was significant enough for that he sit back down and rested for a few minutes to regain his composure. He then decided he was going to go to bed, so he got up and started walking towards the steps, but a jail up the steps to the second floor, he became so severely dizzy and weak he had to come back down the steps. As soon as he got down to the floor, he laid on the floor and felt as though he was going to pass out. He also felt severely nauseated at that point and asked his to get him a bucket to vomit in, but his reportedly states that he was not making sense when he was speaking at that time. He never did lose consciousness and gradually started to feel better when he was lying on the floor, came into [facility] and initial workup was unremarkable except for some hypotension. He was started on IV fluids and started to feel better. Other than that, he states he may have mistakenly taken an extra dose of metoprolol this morning, but again would have only been 10 or 15 minutes before this event occurred. He did work all night and for about 15 hours during that time. He only had 1 bottle of water, but he also did have 1 very large coffee and 1 Monster energy drink. He states he normally drinks at least 3 bottles of water a shift, but yesterday he only had 1. Otherwise, he has not been sick at all recently, has not been on any medications and he has not been on steroids. PAST SURGICAL HISTORY: 1. Coronary artery bypass grafting surgery x5 in January 2017 with HERRING sequentially to the diagonal and LAD, vein graft to the PDA sequentially to the distal RCA and a free SILVIO from the saphenous vein graft paulson to the OM. 2. Cardiac catheterization prior to CABG. MEDICAL ILLNESSES: 1. Coronary artery disease status post CABG. 2. Dyslipidemia. 3. Depression. FAMILY HISTORY: Remarkable for a grandfather who suffered a fatal myocardial infarction at age 42. Otherwise, denies any premature coronary artery disease or sudden cardiac . SOCIAL HISTORY: Denies any tobacco use. Drinks occasional alcohol. Denies any recreational drug use. He is and lives at home with his . He has 1 child. 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 He does not exercise on a regular basis. REVIEW OF SYSTEMS: As per HPI, all other review of systems reviewed and negative at this time. ALLERGIES: DEFINITY. MEDICATIONS AN OUTPATIENT: 1. Aspirin 81 mg daily. 2. Metoprolol succinate 50 mg daily. 3. Celexa daily. 4. Trazodone prior to bedtime. 5. Celexa daily. PHYSICAL EXAMINATION: VITALS: Temperature 36.7, pulse 61, respiratory rate 12, blood pressure 118/71. GENERAL: Awake, alert, oriented x3 in no acute distress. HEENT: Normocephalic, atraumatic. Pupils equal, round, and reactive to light and accommodation. Extraocular muscles intact. Anicteric sclerae. Moist mucous membranes. NECK: No JVD, no bruit. CARDIOVASCULAR: Regular. Positive S4. Normal S1 and S2. No S3. No murmurs or rubs. PULMONARY: Clear to auscultation bilaterally. No rales, rhonchi, or wheezing. ABDOMEN: Bowel sounds x4, soft. No rebound, guarding, tenderness. No organomegaly. EXTREMITIES: No clubbing, cyanosis or edema. +2 pedal pulses bilaterally. SKIN: Warm and dry. TEST RESULTS AND LABORATORY STUDIES OF SIGNIFICANCE: White count of 7, hemoglobin of 14.8, platelet count 224. Sodium 136, potassium 3.2, BUN 13, and creatinine 0.9. TSH of 3.3. A 12-lead EKG performed in the Emergency Department independently reviewed at this time shows sinus bradycardia at 57 beats per minute with incomplete right bundle branch block, otherwise no signs of active ischemia, no significant change compared to previous study of April 2017. IMPRESSION: 1. Presyncopal spell, likely orthostatic. 2. History of coronary artery disease status post coronary artery bypass grafting. 3. Dyslipidemia. 4. History of diastolic dysfunction with normal left ventricular systolic function. RECOMMENDATIONS: It was my pleasure to see Mr. Chaparro in consultation today. Given the fact that the patient's lightheadedness occurred upon standing and the fact that he did not have a significant amount of water yesterday, significant amount of caffeine, my concern is that he suffered an orthostatic event, so he was counseled on avoidance and discussion was had in regards to that needed he drink at least 64 ounces of water a day and that increase water intake is necessary as well when caffeine is also had. At this point, we will hold off on his Toprol-XL and see where his blood pressure progresses from here. Ideally, he is far enough out from CABG at this point, but I do not think he needs a beta patricia, especially given the fact that he has been asymptomatic, and we will monitor him on telemetry overnight. Otherwise, he will be given normal saline for volume depletion. His potassium will also be supplemented.
--- NOTE | 2017-09-14 16:51 | ECHOCARDIOGRAM REPORT ---
*NOTICE TO RECEIVING [employer] This information is strictly Confidential and protected under [place] law. [place] law prohibits you from making any further disclosure of this information unless further disclosure is expressly permitted by the written consent of the person to whom it pertains or is authorized by law. A general authorization for the release of medical or other information is not sufficient for this purpose. Hospital accepts no responsibility if the information is made available to any other person, INCLUDING THE PATIENT. Interpretation Summary * Name: MIGEL IRIZARRY Study Date: 09/14/2017 03:18 PM BP: 111/67 mmHg * Patient Location: [facility] HR: 62 * : 1970 (M/d/yyyy) Gender: Male Height: 69 in * Age: 47 yrs Ethnicity: CA Weight: 240 lb * Ordering Physician: Aileen Mccann * Referring Physician: Self, Referred * Performed By: Catherine Roland RDCS * * Reason For Study: Dizziness, History of CAD, CABG * BSA: 2.2 m2 * -- Conclusions -- * Normal LV chamber size with mild concentric LVH. * Normal LV systolic function, EF 60-65%. * No segmental left ventricular wall motion abnormalities are noted. * Grade II diastolic dysfunction. * Aortic valve sclerosis moderate, without significant aortic valvular stenosis. * Mild left atrial enlargement. Procedure Details * A complete two-dimensional transthoracic echocardiogram was performed (2D, M-mode, Doppler and color flow Doppler). Left Ventricle * The left ventricle is normal in size. * There is mild concentric left ventricular hypertrophy. * Ejection Fraction = 60-65%. * Left ventricular systolic function is normal. * No segmental left ventricular wall motion abnormalities are noted. * The left ventricular wall motion is normal. Right Ventricle * The right ventricular cavity size is normal (basal dimension <4.2 cm in right ventricular apical 4-chamber view). * The right ventricular systolic function is normal as assessed by tricuspid annular plane systolic excursion (TAPSE) (normal >1.5 cm). Atria * The left atrium is mildly dilated. * Right atrial size is normal. * No ASD detected; PFO is not assessed. Mitral Valve * The mitral valve is normal in structure and function. Tricuspid Valve * The tricuspid valve is normal in structure and function. Aortic Valve * The aortic valve is trileaflet. * Aortic valve sclerosis moderate, without significant aortic valvular stenosis. * There is no significant aortic regurgitation. Pulmonic Valve * The pulmonary valve is not well seen, but the Doppler examination is normal without significant regurgitation or stenosis. Great Vessels * The aortic root is normal size. Pericardium/Pleural * There is no pericardial effusion. Left Ventricular Diastolic Function * Diastolic dysfunction, Grade II (pseudonormalization pattern). MMode 2D Measurements and Calculations IVSd 1.3 cm IVSs 1.6 cm LVIDd 4.2 cm LVIDs 2.4 cm LVPWd 1.4 cm LVPWs 2.0 cm IVS/LVPW 0.93 FS 42.8 % EDV(Teich) 76.8 ml ESV(Teich) 19.7 ml EF(Teich) 74.4 % EDV(cubed) 72.0 ml ESV(cubed) 13.4 ml EF(cubed) 81.3 % % IVS thick 25.3 % % LVPW thick 45.5 % LV mass(C)d 200.8 grams LV mass(C)dI 90.0 grams/m\S\2 LV mass(C)s 164.2 grams LV mass(C)sI 73.6 grams/m\S\2 SV(Teich) 57.1 ml SI(Teich) 25.6 ml/m\S\2 SV(cubed) 58.5 ml SI(cubed) 26.2 ml/m\S\2 Ao root diam 3.6 cm Ao root area 10.4 cm\S\2 ACS 1.5 cm LA dimension 4.0 cm LA/Ao 1.1 LVAd ap4 27.7 cm\S\2 LVLd ap4 8.4 cm EDV(MOD-sp4) 78.3 ml EDV(sp4-el) 77.4 ml LVAs ap4 13.7 cm\S\2 LVLs ap4 6.9 cm ESV(MOD-sp4) 25.6 ml ESV(sp4-el) 23.0 ml EF(MOD-sp4) 67.3 % EF(sp4-el) 70.3 % LVAd ap2 30.8 cm\S\2 LVLd ap2 9.0 cm EDV(MOD-sp2) 93.2 ml EDV(sp2-el) 89.5 ml LVAs ap2 15.8 cm\S\2 LVLs ap2 7.9 cm ESV(MOD-sp2) 29.0 ml ESV(sp2-el) 27.0 ml EF(MOD-sp2) 68.9 % EF(sp2-el) 69.8 % LVLd %diff 6.6 % EDV(MOD-bp) 87.5 ml LVLs %diff 12.3 % ESV(MOD-bp) 29.0 ml EF(MOD-bp) 66.8 % SV(MOD-sp4) 52.7 ml SI(MOD-sp4) 23.6 ml/m\S\2 SV(MOD-sp2) 64.2 ml SI(MOD-sp2) 28.8 ml/m\S\2 SV(MOD-bp) 58.5 ml SI(MOD-bp) 26.2 ml/m\S\2 SV(sp4-el) 54.3 ml SI(sp4-el) 24.3 ml/m\S\2 SV(sp2-el) 62.5 ml SI(sp2-el) 28.0 ml/m\S\2 Doppler Measurements and Calculations MV E max silverio 120.1 cm/sec MV A max silverio 50.9 cm/sec MV E/A 2.4 MV dec time 0.24 sec Ao V2 max 146.6 cm/sec Ao max PG 8.6 mmHg Ao max PG (full) 2.9 mmHg LV V1 max PG 5.7 mmHg LV V1 max 119.4 cm/sec PA V2 max 108.7 cm/sec PA max PG 4.7 mmHg TR max silverio 236.6 cm/sec
[2017-09-14 19:20] VITALS: BP 119/76; PULSE 61; TEMP 36.5; O2SAT 93
[2017-09-14 20:00] VITALS: O2SAT 93
[2017-09-14] MEDS ORDERED: ATORVASTATIN 40 MG TAB PO SCH (21:00)
[2017-09-14] MEDS ORDERED: ENOXAPARIN 40 MG/0.4 ML SYR SC SCH (22:00)
[2017-09-14 23:17] VITALS: BP 119/78; PULSE 56; TEMP 37; O2SAT 96
[2017-09-15 04:06] VITALS: BP 115/63; PULSE 58; TEMP 36.7; O2SAT 93
[2017-09-15] MEDS: SODIUM CHLORIDE 0.9% 1000ML 1,000 ML IV SCH (04:10)
[2017-09-15 07:18] VITALS: BP 107/69; PULSE 64; TEMP 36.7; O2SAT 93
[2017-09-15 07:41] LABS: HEMATOCRIT 43.3 % (42-52); HEMOGLOBIN 14.6 g/dL (14.0-18.0); MEAN CELL VOLUME 85.7 fL (80-100); MEAN CORPUSCULAR HEMOGLOBIN 28.9 pg (25-34); MEAN CORPUSCULAR HGB CONC 33.7 g/dl (32-36); MEAN PLATELET VOLUME 10.3 fL (7.4-10.4); PLATELET COUNT 235 K/uL (130-400); RED CELL DISTRIBUTION WIDTH CV 14.2 % (11.5-14.5); RED CELL DISTRIBUTION WIDTH SD 44.5 fL (36.4-46.3); WHITE BLOOD COUNT 7.71 K/uL (4.8-10.8)
[2017-09-15 08:29] LABS: CALCIUM 8.6 mg/dl (8.5-10.1); CREATININE 0.86 mg/dl (0.60-1.40); POTASSIUM 3.7 mmol/L (3.5-5.1)
[2017-09-15] MEDS ORDERED: ASPIRIN 81 MG ECTAB PO SCH (09:00)
[2017-09-15] MEDS ORDERED: CITALOPRAM 20 MG TAB PO SCH (09:00)
[2017-09-15] MEDS ORDERED: LORATADINE 10 MG TAB PO SCH (09:00)
[2017-09-15] MEDS ORDERED: METOPROLOL SUCC 25MG EXT REL TAB PO SCH (09:00)
[2017-09-15] MEDS ORDERED: CHOLECALCIFEROL 1000 INTER.UNIT TAB PO SCH (09:00)
--- NOTE | 2017-09-15 10:10 | Discharge Instructions ---
Discharge Instructions Date of Service Sep 15, 2017. Admission Reason for Admission: Dizziness, Hypotension Discharge Discharge Diagnosis / Problem: Dizziness, likely secondary to Hypotension Discharge Goals Goal(s): Diagnostic testing, Therapeutic intervention Activity Recommendations Activity Limitations: as noted below (no heavy exertion until re-evaluated by Primary Care Physician) Lifting Limitations: until after follow-up appointment Exercise/Sports Limitations: until after follow-up appointment Driving or Machine Use: until after follow up with Primary Care Physician . Instructions / Follow-Up Instructions / Follow-Up DISCONTINUE METOPROLOL FOR NOW. RECORD YOUR BLOOD PRESSURE AT LEAST TWICE DAILY AND SHOW THE READINGS TO YOUR PRIMARY CARE PHYSICIAN ON FOLLOW UP. ALWAYS MAINTAIN ADEQUATE HYDRATION. INCLUDE BANANA, ORANGES, TOMATOES ON YOUR DAILY DIET. FOLLOW UP WITH PRIMARY CARE PHYSICIAN DR. CLINE (ASSOCIATE OF DR. DALE) ON Wednesday09/17/17 AT 12:45PM. FOLLOW UP WITH YOUR BILINGUAL RESEARCH INTERVIEWER SCHEDULED. Current Hospital Diet Patient's current hospital diet: AHA Diet (Heart Healthy) Discharge Diet Recommended Diet: AHA Diet (Heart Healthy) Procedures Procedures Performed: CT SCAN OF THE CHEST, ECHOCARDIOGRAM Pending Studies Studies pending at discharge: no Medical Emergencies . Who to Call and When: Medical Emergencies: If at any time you feel your situation is an emergency, please call 911 immediately. . Non-Emergent Contact Non-Emergency issues call your: Primary Care Provider, Tire Setter Call Non-Emergent contact if: you have a fever, you have any medication questions . . "Provider Documentation" section prepared by Pepito Mejia. . VTE Core Measure Inpt VTE Proph given/why not?: Enoxaparin (Lovenox)SQ
[2017-09-15 10:12] VITALS: BP 107/69; PULSE 64; TEMP 36.7; O2SAT 93
--- NOTE | 2017-09-15 10:18 | Discharge Summary ---
Discharge Summary Date of Service Sep 15, 2017. Discharge Summary Admission Date: Sep 14, 2017 at 10:45 Discharge Date: Sep 15, 2017 Discharge Disposition: Home with services Principal Diagnosis: DIZZINESS, HYPOTENSION LIKELY SECONDARY TO ORTHOSTASIS Secondary Diagnoses/Problems: Please refer to hospital course below. Procedures: ECHO: * -- Conclusions -- * Normal LV chamber size with mild concentric LVH. * Normal LV systolic function, EF 60-65%. * No segmental left ventricular wall motion abnormalities are noted. * Grade II diastolic dysfunction. * Aortic valve sclerosis moderate, without significant aortic valvular stenosis. * Mild left atrial enlargement. (CHEST FOR PE) ANGIO WITH CT DOSE: 540.88 mGycm HISTORY: 47 years-old Male presents with acute hypotension and nausea TECHNIQUE: Multiple CTA images of the chest were obtained after the intravenous administration of 95 ml Optiray 320. Coronal and sagittal MIPS were obtained from the axial data set and were submitted for review. A dose lowering technique was utilized adhering to the principles of ALARA. COMPARISON: Chest radiograph 09/14/2017, CTA chest 2016. FINDINGS: CTA: There is mild to moderate multichamber cardiac enlargement. Prior median sternotomy and CABG. [place] coronary arterial disease. Aortic annular calcifications are noted. No pericardial effusion. Mild atherosclerosis of the thoracic aorta without aneurysm or dissection identified. The left vertebral artery emanates strictly from the aortic arch. The pulmonary arterial tree is opacified to level of the segmental branches. The subsegmental branches are not well opacified. No focal filling defects identified to suggest pulmonary thromboembolic disease. CT CHEST: No dominant thyroid nodule or pathologic adenopathy identified. There is no pneumothorax, pleural effusion, focal airspace consolidation or overt pulmonary edema. Subsegmental bibasilar atelectasis. 4 mm solid nodule of the left lower lobe as seen on image 17 series 4. No focal airspace consolidation to suggest pneumonia. Central airways are patent. No acute abnormality of the imaged upper abdomen. The soft tissues are unremarkable. Mild bilateral gynecomastia. Bones appear intact. Mild multilevel endplate spurring of the spine. IMPRESSION: 1. No acute intrathoracic abnormality identified. No acute aortic pathology or evidence of pulmonary thromboembolic disease. 2. Cardiomegaly with prior median sternotomy and CABG. 3. 4 mm solid noncalcified pulmonary nodule of the posterior basal segment left lower lobe. CHEST ONE VIEW PORTABLE HISTORY: EVALUATE WEAKNESS COMPARISON: Chest 05/13/2017. FINDINGS: The heart remains mildly enlarged. There are poststernotomy changes. Slight elevation the right hemidiaphragm, unchanged. No focal lung consolidations to suggest pneumonia. No evidence for pulmonary edema. No pleural effusions. No pneumothorax. IMPRESSION: No acute process Consultations: CARDIOLOGY DR. ROJAS Pending Studies/Follow-Up: Please refer to hospital course below. Medication Reconciliation Continued Medications: Acetaminophen (Tylenol) 500 Mg Tab 1000 MG PO Q8 PRN for Pain or Fever, TAB Aspirin (Aspirin) 81 Mg Tab 81 MG PO DAILY, TAB Atorvastatin (Lipitor) 40 Mg Tab 80 MG PO HS, TAB Cholecalciferol (Vitamin D3) 2,000 Unit Cap 2000 UNITS PO DAILY, CAP Citalopram Hydrobromide (Celexa) 20 Mg Tab 20 MG PO DAILY Folic Acid (Folic Acid) 1 Mg Tab 1 TAB PO DAILY Loratadine (Claritin) 10 Mg Tab 10 MG PO DAILY, TAB Nitroglycerin (Nitrostat) 0.4 Mg Tab 0.4 MG SL UD, #100 TAB 3 Refills Trazodone Hcl (Trazodone) 50 Mg Tab 2 TABS PO HS PRN for Sleep, TAB Discontinued Medications: Metoprolol Succ (Toprol Xl) (Toprol-Xl) 50 Mg Tabcr 50 MG PO DAILY, #30 TAB Admission Information HPI (per Admitting provider): Pt is 47 y/o M with PMH CAD, s/p CABG in 01/2017, dyslipidemia, HTN, incomplete RBBB, anxiety, depression presented to ER with c/o dizziness. 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 States was sitting on couch and approx 15 minutes later he stood up and felt dizzy and light headed and vomited x 2. He states was so dizzy/light headed he had to lie down supine. His spouse reports she took his BP and was 70's systolic. EMS was called and reported pt was given IVF and zofran. Denies any CP or SOB, GALAN or syncope. Hasn't had to use nitro for several months. States some nasal congestion for past 2 weeks and taking loratadine. Denies taking other OTC meds or supplements. He states that has been eating and drinking and denies skipping meals. Drinking approx 60 ounces of water a day. States last night one water bottle and drank coffee and monster energy drink. No further nausea or vomiting. Denies fever/chills, diaphoresis, D/C, GALAN, vision changes, neck pain, CP, SOB, orthopnea, palpitations, cough, sore throat, choking, otalgia, sinus/facial tenderness, abdominal pain, hematemesis, paresthesias, weakness, extremity weakness, extremity edema, rashes, urinary symptoms. Denies drug use, recent ETOH use. In ER pt BP systolic low 100's. P: 60's. Had dizziness with sitting up. Received 500ml bolus NSS and running at 125ml/hr. Pt states now feels less dizzy and not as dizzy with sitting up. WBC: 7, K: 3.2. Negative troponin. negative U/A, TSH: 3.3. negative troponin. EKG: sinus carrie 57, incomplete RBBB. Negative CT chest for PE. Hx stress test: 04/08: EF: 55-60%, no inducible ischemia, no wall abnormality Hx echo 05/09: EF: 50-54%, AV sclerosis without stenosis, LF diastolic function mildly abnormal Physical Exam (per Admitting): General Appearance: WD/WN, no apparent distress Head: normocephalic, atraumatic Eyes: normal inspection, PERRL, EOMI, sclerae normal ENT: hearing grossly normal, pharynx normal, + pertinent finding (mucous membranes mildly dry) Neck: supple, no JVD, trachea midline Respiratory/Chest: chest non-tender, lungs clear, normal breath sounds, no respiratory distress, no accessory muscle use Cardiovascular: regular rate, rhythm, no edema, no murmur, normal peripheral pulses Abdomen/GI: normal bowel sounds, non tender, soft Extremities/Musculoskelatal: normal inspection, no pedal edema, normal range of motion, non-tender Neurologic/Psych: alert, normal mood/affect, oriented x 3 Skin: normal color, warm/dry Hospital Course DIZZINESS, HYPOTENSION - likely secondary to orthostasis - Metoprolol discontinued - BP improved, dizziness resolved - continue to monitor as outpatient HYPOKALEMIA - resolved CAD S/P CABG - evaluated by Floor Representative- Dr. Rojas echo: noted in the procedure section above cleared for d/c home - continue ASA, statin DYSLIPIDEMIA -Continue statin ANXIETY/DEPRESSION stable -Continue celexa and trazodone HS prn insomnia PULMONARY NODULE CT CHEST : 4 mm solid noncalcified pulmonary nodule of the posterior basal segment left lower lobe (please refer to full report in the procedure section above) -out pt follow up DISPOSITION d/c home ff up with PCP in 3-5 days ff up with Floor Representative as scheduled Total time spent on discharge = 30 minutes This includes examination of the patient, discharge planning, medication reconciliation, and communication with other providers. Discharge Instructions Discharge Instructions Date of Service Sep 15, 2017. Admission Reason for Admission: Dizziness, Hypotension Discharge Discharge Diagnosis / Problem: Dizziness, likely secondary to Hypotension Discharge Goals Goal(s): Diagnostic testing, Therapeutic intervention Activity Recommendations Activity Limitations: as noted below (no heavy exertion until re-evaluated by Primary Care Physician) Lifting Limitations: until after follow-up appointment Exercise/Sports Limitations: until after follow-up appointment Driving or Machine Use: until after follow up with Primary Care Physician . Instructions / Follow-Up Instructions / Follow-Up DISCONTINUE METOPROLOL FOR NOW. RECORD YOUR BLOOD PRESSURE AT LEAST TWICE DAILY AND SHOW THE READINGS TO YOUR PRIMARY CARE PHYSICIAN ON FOLLOW UP. ALWAYS MAINTAIN ADEQUATE HYDRATION. INCLUDE BANANA, ORANGES, TOMATOES ON YOUR DAILY DIET. FOLLOW UP WITH PRIMARY CARE PHYSICIAN DR. CLINE (ASSOCIATE OF DR. DALE) ON Wednesday09/17/17 AT 12:45PM. FOLLOW UP WITH YOUR COURT RECORDING MONITOR SCHEDULED. Current Hospital Diet Patient's current hospital diet: AHA Diet (Heart Healthy) Discharge Diet Recommended Diet: AHA Diet (Heart Healthy) Procedures Procedures Performed: CT SCAN OF THE CHEST, ECHOCARDIOGRAM Pending Studies Studies pending at discharge: no Medical Emergencies . Who to Call and When: Medical Emergencies: If at any time you feel your situation is an emergency, please call 911 immediately. . Non-Emergent Contact Non-Emergency issues call your: Primary Care Provider, Floor Representative Call Non-Emergent contact if: you have a fever, you have any medication questions . . "Provider Documentation" section prepared by Pepito Mejia. . VTE Core Measure Inpt VTE Proph given/why not?: Enoxaparin (Lovenox)SQ
--- NOTE | 2017-09-15 10:18 | Progress Note ---
Medicine Progress Note Date & Time of Visit: Sep 15, 2017 at 10:18. Subjective resting in bed, comfortable states dizziness has resolved ambulating with no problems denies chest pain, dyspnea, palpitations no other symptoms states he is ready and would like to be discharged today Objective Last 8 Hrs Date Time Temp Pulse Resp B/P (MAP) Pulse Ox O2 Delivery O2 Flow Rate FiO2 09/15/17 10:12 36.7 64 20 93 Room Air 09/15/17 08:00 Room Air 09/15/17 07:18 36.7 64 20 107/69 (82) 93 Room Air 09/15/17 04:06 36.7 58 20 115/63 (80) 93 Room Air 09/15/17 04:00 Room Air Physical Exam: General- oriented x 3, not in distress, speaks in sentences with no effort Head- atraumatic Eyes- EOMI, anicteric ENT- oropharynx clear Neck- supple, no JVD Lungs- clear to auscultation b/l Heart- regular rhythm; no murmur, normal rate Abdomen- normal bowel sounds, soft, nontender, no masses or hepatosplenomegaly Extremities- no pretibial edema, no calf tenderness; peripheral pulses intact Neuro- alert, oriented x 3; no gross focal deficits Skin- warm & dry Laboratory Results: Last 24 Hours Test 09/14/17 13:55 09/14/17 20:02 09/15/17 07:23 Troponin I < 0.015 ng/ml < 0.015 ng/ml White Blood Count 7.71 K/uL Red Blood Count 5.05 M/uL Hemoglobin 14.6 g/dL Hematocrit 43.3 % Mean Corpuscular Volume 85.7 fL Mean Corpuscular Hemoglobin 28.9 pg Mean Corpuscular Hemoglobin Concent 33.7 g/dl RDW Standard Deviation 44.5 fL RDW Coefficient of Variation 14.2 % Platelet Count 235 K/uL Mean Platelet Volume 10.3 fL Sodium Level 139 mmol/L Potassium Level 3.7 mmol/L Chloride Level 106 mmol/L Carbon Dioxide Level 28 mmol/L Anion Gap 5.0 mmol/L Blood Urea Nitrogen 11 mg/dl Creatinine 0.86 mg/dl Est Creatinine Clear Calc Drug Dose 126.5 ml/min Estimated GFR () 118.8 Estimated GFR (Non- 102.5 BUN/Creatinine Ratio 12.7 Random Glucose 110 mg/dl Calcium Level 8.6 mg/dl Magnesium Level 2.3 mg/dl Assessment & Plan DIZZINESS, HYPOTENSION - likely secondary to orthostasis - Metoprolol discontinued - BP improved, dizziness resolved - continue to monitor as outpatient HYPOKALEMIA - resolved CAD S/P CABG - evaluated by Helicopter Dispatcher cleared for d/c home -continue ASA, statin DYSLIPIDEMIA -Continue statin ANXIETY/DEPRESSION stable -Continue celexa and trazodone HS prn insomnia PULMONARY NODULE CT CHEST today: 4 mm solid noncalcified pulmonary nodule of the posterior basal segment left lower lobe -plan for out pt follow up DVT PROPHYLAXIS -Lovenox DISPOSITION d/c home Current Inpatient Medications: Current Inpatient Medications Medications (Trade) Dose Ordered Sig/Austen Route Start Time Stop Time Status Last Admin Dose Admin Ioversol (Optiray 320) 100 ml UD PRN IV 09/14/17 09:00 09/18/17 08:59 Enoxaparin Sodium (Lovenox Inj) 40 mg Q24H SC 09/14/17 22:00 10/14/17 21:59 09/14/17 21:33 40 MG Acetaminophen (Tylenol Tab) 650 mg Q4H PRN PO 09/14/17 10:45 10/14/17 10:44 Ondansetron HCl (Zofran Inj) 4 mg Q6H PRN IV 09/14/17 10:45 10/14/17 10:44 Nitroglycerin (Nitrostat Tab) 0.4 mg UD PRN SL 09/14/17 10:45 10/14/17 10:44 Polyethylene (Miralax Powder Packet) 17 gm DAILY PRN PO 09/14/17 10:45 10/14/17 10:44 Sodium Chloride 1,000 ml @ 125 mls/hr Q8H IV 09/14/17 11:15 10/14/17 11:14 09/15/17 04:10 125 MLS/HR Aspirin (Ecotrin Tab) 81 mg DAILY PO 09/15/17 09:00 10/15/17 08:59 09/15/17 08:54 81 MG Atorvastatin Calcium (Lipitor Tab) 80 mg HS PO 09/14/17 21:00 10/14/17 20:59 09/14/17 23:02 80 MG Citalopram Hydrobromide (celeXA TAB) 20 mg DAILY PO 09/15/17 09:00 10/15/17 08:59 09/15/17 08:54 20 MG Folic Acid (Folvite Tab) 1 mg DAILY PO 09/15/17 09:00 10/15/17 08:59 Loratadine (Claritin Tab) 10 mg DAILY PO 09/15/17 09:00 10/15/17 08:59 09/15/17 08:54 10 MG Trazodone HCl (Desyrel Tab) 100 mg HS PRN PO 09/14/17 11:30 10/14/17 11:29 Cholecalciferol (Vitamin D Tab) 2,000 inter.unit DAILY PO 09/15/17 09:00 10/15/17 08:59 09/15/17 08:54 2,000 INTER.UNIT Miscellaneous (Iv Fluids Completed) 1 ea PRN PRN N/A 09/14/17 12:15 09/14/18 12:14
--- NOTE | 2017-09-15 10:29 | Cardiology Follow-Up ---
Subjective Subjective Date of Service: Sep 15, 2017. Pt evaluation today including: conversation w/ patient, conversation w/ family , physical exam, chart review, lab review, review of studies, review of inpatient medication list Additional Details: Pt seen and examined, with at bedside. States that he feels back to normal and anxious for discharge. Denies cp, sob, palpitations, lightheadedness or dizziness. Tele reviewed: sinus rhythm without arrhythmia or significant ectopy Problem List Medical Problems: (1) Chest pain Status: Acute (2) Hypotension Status: Acute (3) Pneumonia Status: Acute (4) Precordial chest pain Status: Acute Review of Systems Respiratory: No see HPI, No cough, No sputum, No wheezing, No shortness of breath, No dyspnea on exertion, No dyspnea at rest, No hemoptysis, No problem reported Cardiac: No see HPI, No chest pain, No orthopnea, No PND, No edema, No claudication, No palpitations, No problem reported Objective Vital Signs Last Vital Signs Documentation Date Time Temp Pulse Resp B/P (MAP) Pulse Ox O2 Delivery O2 Flow Rate FiO2 09/15/17 10:12 36.7 64 20 93 Room Air 09/15/17 07:18 107/69 (82) 09/14/17 09:45 2.0 Physical Exam: General Appearance: WD/WN, no apparent distress Eyes: bilateral eyes normal inspection, bilateral eyes PERRL, bilateral eyes EOMI ENT: normal ENT inspection, hearing grossly normal, pharynx normal Neck: supple, no adenopathy, thyroid normal, no JVD, no carotid bruits, trachea midline Respiratory/Chest: chest non-tender, lungs clear, normal breath sounds, no respiratory distress, no accessory muscle use Cardiovascular: regular rate, rhythm, no edema, no JVD, no murmur, + gallop/S4 Abdomen: normal bowel sounds, non tender, soft, no organomegaly, no pulsatile mass Extremities: normal inspection, no pedal edema, no calf tenderness Neurologic/Psychiatric: utilization reviewer II-XII nml as tested, no motor/sensory deficits, alert, normal mood/affect, oriented x 3 Skin: normal color, warm/dry, no rash Lymphatic: no adenopathy Assessment and Plan 1. orthostatic presyncope discussed avoidance and need for proper hydration recommend avoidance of "energy drinks" pt states he understands and will comply also, will take this opportunity to wean off metoprolol was placed on med appropriately post-op cabg will hold med for now and patient will keep a daily bp log for 1 week will then message primary mixing supervisor with readings and further bp recommendations will be made my office will call to arrange f/u in 1 month ok to d/c to home from cardiac standpoint.
== END 2017-09-15 10:40 | disposition home or self-care (01) ==
LOC: EDBD 07:50 → C.EDB 07:51 → C.2T 10:45 → ENRESERV 11:48
PROVIDERS: ADMIT Internal Medicine; ATTEND Internal Medicine
DX: R42 Dizziness and giddiness (principal); I25.10 Atherosclerotic heart disease of native coronary artery without angina pectoris; Z95.1 Presence of aortocoronary bypass graft; E78.5 Hyperlipidemia, unspecified; I10 Essential (primary) hypertension; F41.9 Anxiety disorder, unspecified; F32.9 Major depressive disorder, single episode, unspecified; Z79.899 Other long term (current) drug therapy; Z79.82 Long term (current) use of aspirin; Z82.49 Family history of ischemic heart disease and other diseases of the circulatory system; Z87.01 Personal history of pneumonia (recurrent)

== ENCOUNTER 2023-09-25 15:28 | Inpatient (IN) ==
--- OUTSIDE RECORDS SUMMARY | 2023-09-25 15:33 | External Medical Summary | Summary of Care ---
Author Name Unknown Organization [facility] [address] [address] Phone [phone] Care Team Providers Care Icu Manager Name Role Phone Yaya Bhakta MD Primary Care Provider + [phone] Reason for Visit * Reason Onset Date Comments Health Maintenance 06/18/2023 Encounter Details Date Type Department Care Team (Late st Contact Info) Description 06/18/2023 Telephone Family Medicine [address] [phone] Yaya Bhakta MD [address] [place], [place] [address] [address] Health Maintenance Allergies Active Allergy Reactions Criticality Noted Date Comments Perflutren Lipid Microsphere Rash 017 documented as of this encounter (statuses as of 06/18/2023) Medications Medication Sig Dispensed Refills Start Date End Date Status Aspirin 81 MG Tablet Take 2 Tabs by mouth daily. 60 Tab 5 02/01/2017 Active Additional Information Patient taking differently: 81 mgOral Daily(AM),Indications: Pt. states he takes in the am. Pt. states he is only taking 1 tablet., Reported on 03/17/2023 Loratadine 10 MG Oral Tablet (Claritin)Indicatio ns:Post-nasal drip Take 1 Tab by mouth every night at bedtime. 30 Tab 2 06/17/2020 Active Additional Information Patient not taking.Reported on 03/17/2023 Non-Aspirin Pain Reliever 325 MG Oral Tablet Take 3 Tabs by mouth every 8 hours. 0 06/22/2021 Active Nitroglycerin 0.4 MG Sublingual Tablet Sublingual (Nitrostat) Place under the tongue 1 Tablet every 5 minutes as needed for Pain, Chest. up to 3 doses in 15 minutes 25 Tablet 11 01/12/2022 Active Additional Information Patient not taking.Reported on 03/17/2023 Lisinopril 5 MG Oral Tablet (Prinivil)Indicatio ns:HTN, goal below 130/80 TAKE 1 TABLET BY MOUTH EVERY DAY 90 Tablet 3 08/23/2022 Active Rosuvastatin Calcium 40 MG Oral Tablet (Crestor)Indication s:Memory problem,S/P CABG x 5,Dyslipidemia, goal LDL below 70 TAKE 1 TABLET BY MOUTH EVERY DAY 90 Tablet 3 08/23/2022 Active Additional Information Patient taking differently: QPM-1999, Reported on 03/17/2023 Citalopram Hydrobromide 40 MG Oral Tablet (CeleXA)Indications :DON (generalized anxiety disorder) TAKE 1 TABLET BY MOUTH IN THE MORNING 90 Tablet 1 11/02/2022 Active Repatha SureClick 140 MG/ML Subcutaneous Solution Auto-injector (evolocumab) Inject 140 mg under the skin every 14 days. Remove from refrigerator 30 minutes prior to injection. 6 mL 3 03/02/2023 Active Vitamin D-3 25 MCG (1000 UT) Oral Capsule Take 1 Capsule by mouth in the morning. 0 Active documented as of this encounter (statuses as of 06/18/2023) Active Problems Problem Noted Date Diagnosed Date Obstructive sleep apnea 05/22/2022 Nocturnal hypoxia 05/22/2022 BMI 37.0-37.9, adult 05/04/2022 Overview: 255 Generalized anxiety disorder 05/04/2022 Prediabetes 10/06/2021 Overview: Per Prediabetes protocol Elevated hemidiaphragm 04/27/2017 LVH (left ventricular hypertrophy) 04/23/2017 Diastolic dysfunction 04/23/2017 Atelectasis of both lungs 04/07/2017 ASCVD (arteriosclerotic cardiovascular disease) 02/08/2017 S/P CABG x 5 02/01/2017 Dyslipidemia, goal LDL below 70 01/21/2017 Incomplete right bundle branch block 05/19/2016 Adjustment disorder with depressed mood 04/04/20 15 documented as of this encounter (statuses as of 06/18/2023) Resolved Problems Problem Noted Date Diagnosed Date Resolved Date Pneumonitis 04/07/2017 05/04/2022 S/P CABG x 6 02/08/2017 02/08/2017 Class 2 obesity with body ma ss index (BMI) of 35 to 39.9 without comorbidity 12/15/2016 7 Overview: bmi= 39.72 12/15/16 Left-sided chest pain 12/10/20162021 Overview: ICD-10 update of inactive term INFORMATION 05/23/2016 02/10/2017 Overview: 10 year cardiovascular risk of 5.6%, 1.5% OptiMARK Left-sided chest pain 05/19/20162016 Overview: ICD-10 update of inactive term Elevated blood pressure, situational 05/19/2016 12/10/2016 Severe obesity with body mas s index (BMI) of 35.0 to 39.9 with serious comorbidity 04/04/2015 Overview: bmi= 36.04 04/04/15 ICD-10 update of inactive diagnosis INFORMATION 09/23/2014 02/10/2017 Overview: 10 here cardiovascular risk of 7% Severe obesity with body mas s index (BMI) of 35.0 to 39.9 with serious comorbidity 09/13/2014 Overview: bmi= 35.44 09/13/14 ICD-10 update of inactive diagnosis Cough 09/13/2014 12/10/2016 OBESITY, BMI 30-34 (SEE ACTUAL BMI) 11/14/2009 12/10/2016 Overview: Per Obesity Taxonomy Elevated blood pressure, situational 06/28/2009 07/11/2015 Overview: Modified per HTN Taxonomy. Male infertility 06/22/2005 07/11/2015 ACUTE URI NOS 06/22/2005 07/11/2015 Chronic rhinitis 06/22/2005 02/10/2017 TESTICULAR PAIN 06/22/2005 07/11/2015 ELEV BL PRES W-O HYPERTN 06/22/200501/2009 Overview: Modified per HTN Taxonomy. SPRAIN LUMBOSACRAL 05/05/2005 5 Spasm of muscle 05/05/2005 07/11/2015 ADVANCE DIRECTIVE INFORMATION 02/24/2005 07/11/2015 Overview: No, Advance Directive brochure given to patient. OBESITY, UNSPECIFIED 03/04/2004 010 Overview: Per Obesity Taxonomy Malaise and fatigue 03/04/2004 07/11/20 15 Organic sleep disorder 03/04/200407/11 Major depressive disorder, r ecurrent episode, moderate 03/04/2004 04/04/2015 Abnormal weight gain 11/17/2001 004 Family history of other card iovascular diseases 11/14/2001 07/11/2015 Overview: ICD-10 update of inactive term LUMBAGO 11/14/2001 11/09/2003 Dyslipidemia, goal to be determined 11/14/2001 07/17/2013 ELEV BL PRES W-O HYPERTN 11/14/2001 Allergic rhinitis 06/30/2000 07/11/2015 Dyslipidemia, goal LDL below 130 02/08/2017 documented as of this encounter (statuses as of 06/18/2023) Immunizations Name Administration Dates Next Due TDAP (age 11 and older)(Adacel) 06/21/2021 documented as of this encounter Social History Tobacco Use Types Packs/Day Years Used Date Smoking Tobacco: Never Smokeless Tobacco: Never Alcohol Use Standard Drinks/Week Comments Yes 0 (1 standard drink = 0.6 oz pur e alcohol) occasional PHQ-2 Answer Date Recorded PHQ-2 Score -1 05/12/2020 Hunger Vital Sign Answer Date Recorded Worried About Running Out of Food in the Last Ye ar Never true 10/02/2019 Ran Out of Food in the Last Year Never true 10/02/2019 Sex and Gender Information Value Date Recorded Sex Assigned at Male 02/03/2020 2:01 PM EDT Gender Identity Male 02/03/2020 2:01 PM EDT Sexual Orientation Straight 10/02/2019 10 :40 AM EST Job Start Date Occupation Industry Not on file Not on file Not on file documented as of this encounter Miscellaneous Notes * Telephone Encounter - Bailey Francisco LPN - 06/18/2023 1:13 PM EDT Care Gaps Comprehensive Care Outreach Last Office/Telemedicine Visit: 01/19/2023 (in office), Visit date not found (telemedicine) Next Office Visit: Visit date not found Hemoglobin AIC Results: Lab Results Component Value Date/Time HEMOGLOBIN A1C - [facility] 6.3 (H) 03/23/2022 11:33 AM HEMOGLOBIN A1C - [facility] 6.1 (H) 09/25/2021 11:12 AM HEMOGLOBIN A1C - [facility] 6.2 01/13/2017 03:14 PM Reviewed Health Maintenance below: Health Maintenance Topic Date Due Hepatitis B (1 of 3 - 3-dose series) Never done COVID-19 Vaccine (1) Never done HIV Screening Never done Hepatitis C Screening Never done Zoster Vaccines (1 of 2) Never done Depression Screening 02/02/2021 HbA1c 03/23/2023 Ov Labs Declined Care Gap Outreach Action Taken: Spoke to patient documented in this encounter Plan of Treatment Upcoming Encounters Date Type Department Care Team (Late st Contact Info) Description 10/14/2023 10:00 AM EST Telemedicine Sleep Disorders Ctr [facility] [address] [place] [address] Miracle Parsons, [address] [place] [address] Scheduled Procedures Name Priority Associated Diagnoses Date/Ti me COLONOSCOPY FLEXIBLE PROXIMA L DIAGNOSTIC Recall History of colonic polyps Health Maintenance Due Date Last Done Comments Hepatitis B (1 of 3 - 3-dose series) 1969 COVID-19 Vaccine (#1) 1969 HIV Screening 1984 Hepatitis C Screening 1987 Zoster Vaccines (1 of 2) 2019 Depression Screening 02/02/2021 02/03/2020, 07/11/2015, 04/04/2015 HbA1c 03/23/2023 03/23/2022, 02/10/2021, 01/13/2017 Influenza Vaccine (FLU shot) (#1) 2023 COLONOSCOPY-EVERY 3 YRS AGES 18-100 03/19/2026 03/19/2023, 03/19/2023, 10/23/2019, Additional history exists DTaP,Tdap,and Td Vaccines (2 - Td or Tdap) 06/21/2031 06/21/2021 GARDASIL-HPV IMMUNIZATION SERIES Aged Out No longer eligible based on patient's age to complete this topic MENINGOCOCCAL (MENACTRA/MENVEO) Aged Out No longer eligible based on patient's age to complete this topic Pneumococcal Vaccine: Pediatrics (0 to 5 Years) and At-Risk Patients (6 to 64 Years) Aged Out No longer eligible based on patient's age to complete this topic documented as of this encounter Medical Devices Implanted Type Area Tanbark Peeler Device Identifier Shelf Expiration Date Model / Serial / Lot Marker Coronary [facility] - [id number] Implanted:Qty: 1 on 01/26/2017 by Ankush Gonsalez MD at [place] [facility] N/A: Aorta [employer] 09/23/2019 [facility] / / [id number] documented as of this encounter Advance Directives Latest Code Status on File Code Status Date Activated Date Inactivated Comments Full Code 01/26/2017 12:23 PM 02/01/2017 11:58 PM This order reflects the patients wishes and were consensually agreed upon. Question Answer Comments Discussion of Advance Directives occurred with: Patient Does the patient have a Living Will? No Does the patient have Health Care Power of Tours Hostess? No Care Teams Icu Manager Relationship Specialty Start Date End Date Yaya Bhakta MD [address] [place] [address] [place] [address] PCP - General Family Medicine 07/06/22 documented as of this encounter
--- OUTSIDE RECORDS SUMMARY | 2023-09-25 15:33 | External Medical Summary | Summary of Care ---
Author Name Unknown Organization [facility] Address [address] [place] [address] Phone [phone] Care Team Providers Care Travertine Installer Name Role Phone Yaya Bhakta MD Primary Care Provider + [phone] Encounter Details Date Type Department Care Team (Late st Contact Info) Description 06/15/2023 Telephone Cardiology [place] [facility] [address] [facility] [place] [address] [facility] [place] [address] Allergies Active Allergy Reactions Criticality Noted Date Comments Perflutren Lipid Microsphere Rash 017 documented as of this encounter (statuses as of 07/09/2023) Medications Medication Sig Dispensed Refills Start Date [...] as of this encounter (statuses as of 07/09/2023) Active Problems Problem Noted Date Diagnosed Date [...] as of this encounter (statuses as of 07/09/2023) Resolved Problems Problem Noted Date Diagnosed Date [...] as of this encounter (statuses as of 07/09/2023) Immunizations Name Administration Dates Next Due TDAP [...] encounter Miscellaneous Notes * Telephone Encounter - Anaid Rodriguez RPh - 07/09/2023 9:12 AM EST Again attempted to reach patient. MT has been unsuccessful in reaching patient. Will sign off If patient returns shonda, I am happy to re-establish care Of note, pt last seen by Dr Puckett 12/2021. Was supposed to have 6 month follow up but his appt with Dr Puckett was cancelled 08/21/22 due to coverage. Anaid Rodriguez Pharm D Clinical Pharmacist Cardiology 07/09/2023,9:12 AM * Telephone Encounter - Anaid Rodriguez RPh - 06/22/2023 2:52 PM EDT Contacts Type Contact Phone/Fax 06/15/2023 10:58 AM EDT Phone (Outgoing) Mike Chaparro (Self) [phone] (M) Left Message 06/17/2023 11:45 AM EDT Phone (Outgoing) Mike Chaparro (Self) [phone] (M) 06/17/2023 11:49 AM EDT Phone (Outgoing) Mike Chaparro (Self) [phone] (M) Left Message 06/17/2023 02:18 PM EDT Phone (Incoming) Mike Chaparro (Self) [phone] (M) 06/18/2023 11:53 AM EDT Phone (Outgoing) Mike Chaparro (Self) [phone] (M) Left Message 06/22/2023 02:52 PM EDT Phone (Outgoing) Mike Chaparro (Self) [phone] (M) Left Message Again tried to reach patient. LVM If patient calls back, please TEAMS message me to see if I am free. Anaid Donato Clinical Pharmacist Cardiology 06/22/2023,2:53 PM * Telephone Encounter - Anaid Rodriguez RPh - 06/18/2023 1:22 PM EDT Tried to call back. LVM Will try again Wednesday * Telephone Encounter - Bailey Francisco LPN - 06/18/2023 1:22 PM EDT I had spoke to patient for a care gap follow up. Patient states he is compliant with the medication. * Telephone Encounter - Leatha Steele OSA - 06/18/2023 12:24 PM EDT Pt calling back. He states he will be available to take a call for the next 30 min, or Wednesday before 3pm. Call him on [phone] * Telephone Encounter - Anaid Rodriguez RPh - 06/18/2023 11:55 AM EDT Contacts Type Contact Phone/Fax 06/15/2023 10:58 AM EDT Phone (Outgoing) Mike Chaparro (Self) [phone] (M) Left Message 06/17/2023 11:45 AM EDT Phone (Outgoing) Mike Chaparro (Self) [phone] (M) 06/17/2023 11:49 AM EDT Phone (Outgoing) Mike Chaparro (Self) [phone] (M) Left Message 06/17/2023 02:18 PM EDT Phone (Incoming) Mike Chaparro (Self) [phone] (M) 06/18/2023 11:53 AM EDT Phone (Outgoing) Mike Chaparro (Self) [phone] (M) Left Message Again attempted to reach pt. LVM asking when he call back to leave time he is free today for me to return call If pt calls, please teams me so I can call him right back Anaid Rodriguez Pharm D Clinical Pharmacist Cardiology 06/18/2023,11:56 AM * Telephone Encounter - Valentina Santos OSA - 06/17/2023 2:18 PM EDT Pt is calling back to discuss results. * Telephone Encounter - Anaid Rodriguez RPh - 06/17/2023 11:49 AM EDT Contacts Type Contact Phone/Fax 06/15/2023 10:58 AM EDT Phone (Outgoing) Mike Chaparro (Self) [phone] (M) Left Message 06/17/2023 11:45 AM EDT Phone (Outgoing) Mike Chaparro (Self) [phone] (M) 06/17/2023 11:49 AM EDT Phone (Outgoing) Mike Chaparro (Self) [phone] (M) Left Message Pt called into call center and they could not transfer the call Attempted to call pt right back with no answer If patient returns call, please teams me and find out what number I should call him at * Telephone Encounter - Anaid Rodriguez RPh - 06/15/2023 10:57 AM EDT Attempted to reach pt to review lipid panel results LDL increased and is above goal Pt changed from Praluent to Repatha in February due to insurance. Need to check compliance. documented in this encounter Plan of Treatment Upcoming Encounters Date Type Department Care Team (Late st Contact Info) Description 10/14/2023 10:00 AM EST [facility] [address] [place] [address] Miracle Parsons DO [address] [place] [address] Scheduled Procedures Name Priority Associated Diagnoses Date/Ti [...] this encounter Medical Devices Implanted Type Area Intermediate Card Tender Device Identifier Shelf Expiration Date Model / Serial / Lot Marker Coronary [facility] - [id number] Implanted:Qty: 1 on 01/26/2017 by Ankush Gonsalez MD at OR [facility] [place] N/A: Aorta [employer] 09/23/2019 [facility] / / [id number] documented as of this encounter Advance Directives [...] the patient have Health Care Power of Pharmacy Technician Trainee? No Care Teams Travertine Installer Relationship Specialty Start Date End Date Yaya Bhakta MD [address] [place] [address] [place] [address] PCP - General Family Medicine 07/06/22 documented as of this encounter
--- OUTSIDE RECORDS SUMMARY | 2023-09-25 15:33 | External Medical Summary | Summary of Care ---
Author Name Unknown Organization [facility] Address [address] [place] [address] Phone [phone] Care Team Providers Care Diaper Folder Name Role Phone Yaya Bhakta MD Primary Care Provider + [phone] Encounter Details Date Type Department Care Team ([facility] st Contact Info) Description 03/02/2023 Specialty Pharmacy [facility], [address] [place] [id number] Medication, [facility] Specialty, [address] [address] Allergies Active Allergy Reactions Criticality Noted Date Comments Perflutren Lipid Microsphere Rash 017 documented as of this encounter (statuses as of 08/31/2023) Medications Medication Sig Dispensed Refills Start Date [...] to injection. 6 mL 3 03/02/2023 Active documented as of this encounter (statuses as of 08/31/2023) Active Problems Problem Noted Date Diagnosed Date [...] as of this encounter (statuses as of 08/31/2023) Resolved Problems Problem Noted Date Diagnosed Date [...] as of this encounter (statuses as of 08/31/2023) Immunizations Name Administration Dates Next Due TDAP [...] on file documented as of this encounter Plan of Treatment Upcoming Encounters Date Type Department Care Team (Late st Contact Info) Description 10/14/2023 10:00 AM EST Telemedicine [facility] [address] [place] [address] Miracle Parsons, [address] [place] [address] Scheduled Procedures Name Priority Associated Diagnoses [...] this encounter Medical Devices Implanted Type Area Neuroscience Director Na Device Identifier Shelf Expiration Date Model / Serial / Lot Marker Coronary [facility] - [id number] Implanted:Qty: 1 on 01/26/2017 by Ankush Gonsalez MD at [place] [facility] [place] N/A: Aorta [employer] 09/23/2019 [facility] / / [id number] documented as of this encounter Advance Directives [...] the patient have Health Care Power of Levee Superintendent? No Care Teams Diaper Folder Relationship Specialty Start Date End Date Yaya Bhakta MD [address] [place] [address] [place] [address] PCP - General Family Medicine 07/06/22 documented as of this encounter
--- OUTSIDE RECORDS SUMMARY | 2023-09-25 15:33 | External Medical Summary | Summary of Care ---
Author Name Unknown Organization [facility] Address [address] [facility] [place] [address] Phone [phone] Care Team Providers Care Lead Recoverer Name Role Phone Yaya Bhakta MD Primary Care Provider + [phone] Reason for Visit * Reason Comments Outpatient Testing Encounter Details Date Type Department Care Team (Late st Contact Info) Description 06/14/2023 8:10 AM EDT Laboratory Laboratory [address] [place] [phone] [address] [place] [address] Dyslipidemia, goal LDL below 70 Allergies Active Allergy Reactions Criticality Noted Date Comments Perflutren Lipid Microsphere Rash 017 documented as of this encounter (statuses as of 06/15/2023) Medications Medication Sig Dispensed Refills Start Date [...] as of this encounter (statuses as of 06/15/2023) Active Problems Problem Noted Date Diagnosed Date [...] as of this encounter (statuses as of 06/15/2023) Resolved Problems Problem Noted Date Diagnosed Date [...] as of this encounter (statuses as of 06/15/2023) Immunizations Name Administration Dates Next Due TDAP [...] on file documented as of this encounter Progress Notes * Anaid Rodriguez RPh - 06/15/2023 10:54 AM EDT LDL significantly increased on most recent lab work. LDL now above goal PCSK9 changed from Praluent to Repatha in February due to insurance Need to check compliance Anaid Rodriguez Pharm D Clinical Pharmacist Cardiology 06/15/2023,10:54 AM documented in this encounter Miscellaneous Notes * Result Encounter Note - Anaid Rodriguez RPh - 06/15/2023 10:54 AM EDT LDL significantly increased, will ensure compliance. See TE documented in this encounter Plan of Treatment Upcoming Encounters Date Type Department Care Team (Late st Contact Info) Description 10/14/2023 10:00 AM EST Telemedicine Sleep Disorders Ctr [facility] [address] [facility] [place] [phone] Miracle Parsons, [address] [facility] [place] [id number] Scheduled Procedures Name Priority Associated Diagnoses Date/Ti me COLONOSCOPY FLEXIBLE PROXIMA L DIAGNOSTIC Recall History of colonic polyps Health Maintenance Due Date Last Done Comments Hepatitis B (1 of 3 - 3-dose series) 1970 COVID-19 Vaccine (#1) 1969 HIV Screening 1984 Hepatitis C Screening 1987 Zoster Vaccines (1 of 2) 2019 Depression Screening 02/02/2021 02/03/2020, 07/11/2015, 04/04/2015 HbA1c 03/23/2023 03/23/2022, 0210/2021, 01/13/2017 Influenza Vaccine (FLU shot) (#1) 2023 [...] this encounter Medical Devices Implanted Type Area Boiler Engineer Device Identifier Shelf Expiration Date Model / Serial / [facility] Marker [facility] [id number] Implanted:Qty: 1 on 01/26/2017 by Ankush Gonsalez MD at OR [facility] [place] N/A: Aorta [employer] 09/23/2019 [facility] / / [id number] documented as of this encounter Procedures Procedure Name Priority Date/Time Associated Diagnosis Comments LIPID PANEL WITH DIRECT LDL IF TG IS HIGH Routine 06/14/2023 8:21 AM EDT Dyslipidemia, goal LDL below 70 documented in this encounter Results * (ABNORMAL) LIPID PANEL WITH DIRECT LDL IF TG IS HIGH (06/14/2023 8:21 AM EDT) Triglycerides 276(H) <=174 mg/dL 06/14/2023 9:07 PM EDT LABORATORY [facility] Comment: Triglyceride Reference Ranges (mg/dL): <150 Acceptable 150-174 Borderline high 175-499 High >=500 Very high Cholesterol 285(H) <200 mg/dL 06/14/2023 9:07 PM EDT [facility] Comment: Total Cholesterol Reference Ranges (mg/dL): <200 Desirable 200-239 Borderline high >=240 High HDL Cholesterol 40 >39 mg/dL 9:07 PM EDT LAB[facility]ORY [facility] Comment: HDL Cholesterol Reference Ranges (mg/dL): >=60 High (Desirable) <50 Low (Undesirable) For Females <40 Low (Undesirable) For Males Non-HDL Cholesterol 245(H) <=159 mg/dL 06/14/2023 9:07 PM EDT LAB[facility]ORY [facility] Comment: Non-HDL Cholesterol Reference Range (mg/dL): <100 Target level for high risk ASCVD patient <130 Optimal for general population 130-159 Near optimal for general population 160-189 Borderline High 190-219 High >=220 Very High LDL Cholesterol 190(H) <=129 mg/dL 06/14/2023 9:07 PM EDT LABORATORY [facility] Comment: LDL Cholesterol Reference Ranges (mg/dL): <70 Target level for high risk ASCVD patient <100 Optimal for general population 100-129 Near optimal for general population 130-159 Borderline high 160-189 High >=190 Very high Blood Venous blood specimen / Unknown Venipuncture / Unknown 06/14/2023 8:21 AM EDT 06/14/2023 8:26 AM EDT Anaid Rodriguez [facility] LAB BLOOD O RDERABLES LABORATORY [facility] [address] [facility] [place] [address] documented in this encounter Visit Diagnoses Diagnosis Dyslipidemia, goal LDL below 70 Other and unspecified hyperlipidemia documented in this encounter Advance Directives Latest Code Status on File Code Status Date Activated Date Inactivated Comments Full Code 01/26/2017 12:23 PM 02/01/2017 11:58 PM This order reflects the patients wishes and were consensually agreed upon. Question Answer Comments Discussion of Advance Directives occurred with: Patient Does the patient have a Living Will? No Does the patient have Health Care Power of Social Insurance Specialist? No Care Teams Lead Recoverer Relationship Specialty Start Date End Date Yaya Bhakta MD [address] [place] [address] [place] [address] PCP - General Family Medicine 07/06/22 documented as of this encounter
--- OUTSIDE RECORDS SUMMARY | 2023-09-25 15:33 | External Medical Summary | Summary of Care ---
Author Name Unknown Organization [facility] Address [address] [facility] [place] [address] Phone [phone] Care Team Providers Care Embossing Tool Setter Name Role Phone Yaya Burnette MD Primary Care Provider + [phone] Reason for Visit * Reason Comments eRx-Medication Refill Encounter Details Date Type Department Care Team (Late st Contact Info) Description 09/18/2023 Refill Family Medicine [address] [place] [id number] Yaya Burnette MD [address] [place], [place] [address] [address] DON (generalized anxiety disorder) Allergies Active Allergy Reactions Criticality Noted Date Comments Perflutren Lipid Microsphere Rash 017 documented as of this encounter (statuses as of 09/18/2023) Medications Medication Sig Dispensed Refills Start Date End Date Status Aspirin 81 MG Tablet Take 2 Tabs by mouth daily. 60 Tab 5 02/01/2017 Active Additional Information Patient taking differently: 81 mgOral Daily(AM),Indications: Pt. states he takes in the am. Pt. states he is only taking 1 tablet., Reported on 03/17/2023 Loratadine 10 MG Oral Tablet (Claritin)Indicat ions:Post-nasal drip Take 1 Tab by mouth every [...] on 03/17/2023 Lisinopril 5 MG Oral Tablet (Prinivil)Indicat ions:HTN, goal below 130/80 TAKE 1 TABLET BY MOUTH EVERY DAY 90 Tablet 3 08/23/2022 Active Rosuvastatin Calcium 40 MG Oral Tablet (Crestor)Indicati ons:Memory problem,S/P CABG x 5,Dyslipidemia, goal LDL below 70 TAKE 1 TABLET BY MOUTH EVERY DAY 90 Tablet 3 08/23/2022 Active Additional Information Patient taking differently: QPM-1999, Reported on 03/17/2023 Repatha SureClick 140 MG/ML Subcutaneous Solution Auto-injector (evolocumab) Inject 140 mg under the skin every 14 days. Remove from refrigerator 30 minutes prior to injection. 6 mL 3 03/02/2023 Active Vitamin D-3 25 MCG (1000 UT) Oral Capsule Take 1 Capsule by mouth in the morning. 0 Active Citalopram Hydrobromide 40 MG Oral Tablet (CeleXA)Indicatio ns:DON (generalized anxiety disorder) TAKE 1 TABLET BY MOUTH EVERY DAY IN THE MORNING 90 Tablet 1 09/18/2023 Active Citalopram Hydrobromide 40 MG Oral Tablet (CeleXA)Indicatio ns:DON (generalized anxiety disorder) TAKE 1 TABLET BY MOUTH IN THE MORNING 90 Tablet 1 11/02/2022 09/18/19 24 Discontinued documented as of this encounter (statuses as of 09/18/2023) Active Problems Problem Noted Date Diagnosed Date [...] as of this encounter (statuses as of 09/18/2023) Resolved Problems Problem Noted Date Diagnosed Date [...] as of this encounter (statuses as of 09/18/2023) Immunizations Name Administration Dates Next Due TDAP [...] encounter Miscellaneous Notes * Telephone Encounter - Ruthann Salcido [facility] - 09/18/2023 11:07 AM EST Signed Prescriptions: Disp Refills Citalopram Hydrobromide 40 MG Oral Tablet *90 Tab*1 Sig: TAKE 1 TABLET BY MOUTH EVERY DAY IN THE MORNINGAuthorizing Provider: YAYA BURNETTE User: RUTHANN PATEL documented in this encounter Plan of Treatment Upcoming Encounters Date Type Department Care Team (Late st Contact Info) Description 10/14/2023 10:00 AM EST Telemedicine Sleep Disorders Ctr [facility] [address] [facility] [place] [address] Miracle Parsons DO [address] [place] [address] Scheduled Procedures Name Priority Associated Diagnoses Date/Ti me COLONOSCOPY FLEXIBLE PROXIMA L DIAGNOSTIC Recall History of colonic polyps Health Maintenance Due Date Last Done Comments Hepatitis B (1 of 3 - 3-dose series) 1970 COVID-19 Vaccine (#1) 1969 HIV Screening 1984 Hepatitis C Screening 1987 Zoster Vaccines (1 of 2) 2019 Depression Screening 02/02/2021 02/03/2020, 07/11/2015, 04/04/2015 HbA1c 03/23/2023 03/23/2022, 02/0 10/2021, 01/13/2017 Influenza Vaccine (FLU shot) (#1) 2023 [...] this encounter Medical Devices Implanted Type Area Professor Of Religion Device Identifier Shelf Expiration Date Model / Serial / Lot Marker [facility] [id number] Implanted:Qty: 1 on 01/26/2017 by Ankush Gonsalez MD [place] [facility] [place]/A: Aorta [employer] 09/23/2019 [facility] [employer] / / [id number] documented as of this encounter Visit Diagnoses Diagnosis DON (generalized anxiety disorder) Generalized anxiety disorder documented in this encounter Advance Directives Latest Code Status on File Code Status Date Activated Date Inactivated Comments Full Code 01/26/2017 12:23 PM 02/01/2017 11:58 PM This order reflects the patients wishes and were consensually agreed upon. Question Answer Comments Discussion of Advance Directives occurred with: Patient Does the patient have a Living Will? No Does the patient have Health Care Power of Ui Software Engineer? No Care Teams Embossing Tool Setter Relationship Specialty Start Date End Date Yaya Burnette MD [address] [place] [address] [place] [address] PCP - General Family Medicine 07/06/22 documented as of this encounter
--- OUTSIDE RECORDS SUMMARY | 2023-09-25 15:33 | External Medical Summary | Summary of Care ---
Author Name Unknown Organization [facility] Address [address] [facility] [place] [address] Phone [phone] Care Team Providers Care Worm Picker Name Role Phone Yaya Bhakta MD Primary Care Provider + [phone] Encounter Details Date Type Department Care Team (Late st Contact Info) Description 06/15/2023 Telephone Cardiology [place] Naveed Goodmanwn [address] [facility] [place] [address] [facility] [place] [address] Allergies Active Allergy Reactions Criticality Noted Date [...] or Wednesday before 3pm. Call him on [phone] * Telephone Encounter - Anaid Rodriguez RPh - 06/18/2023 11:55 AM EDT Contacts Type Contact Phone/Fax 06/15/2023 10:58 AM EDT Phone (Outgoing) Mike Chaparro (Self) [phone] (M) Left Message 06/17/2023 11:45 AM EDT Phone (Outgoing) Mike Chaparro (Self) [phone] (M) 06/17/2023 11:49 AM EDT Phone (Outgoing) Mike Chaparro (Self) [phone] (M) Left Message 06/17/2023 02:18 PM EDT Phone (Incoming) Witherite, Mike (Self) [phone] (M) 06/18/2023 11:53 AM EDT Phone (Outgoing) Mike Chaparro (Self) [phone] (M) Left Message Again attempted to reach [...] AM EDT Phone (Outgoing) Mike Chaparro (Self) [phone] (M) Left Message 06/17/2023 11:45 AM EDT Phone (Outgoing) Mike Chaparro (Self) [phone] (M) 06/17/2023 11:49 AM EDT Phone (Outgoing) Mike Chaparro (Self) [phone] (M) Left Message Pt called into call [...] 10:00 AM EST Telemedicine Sleep Disorders Ctr [facility] [address] [place] [address] Miracle Parsons, [address] [place] [address] Scheduled Procedures Name Priority Associated Diagnoses Date/Ti me COLONOSCOPY FLEXIBLE PROXIMA L DIAGNOSTIC Recall History of colonic polyps Health Maintenance Due Date Last Done Comments Hepatitis B (1 of 3 - 3-dose series) 1969 COVID-19 Vaccine (#1) 1969 HIV Screening 1984 Hepatitis C Screening 1987 Zoster Vaccines (1 of 2) 2019 Depression Screening 02/02/2021 02/03/2020, 07/11/2015, 04/04/2015 HbA1c 03/23/2023 03/23/2022, 10/2021, 01/13/2017 Influenza Vaccine (FLU shot) (#1) [...] this encounter Medical Devices Implanted Type Area Inventory Associate And Driver Device Identifier Shelf Expiration Date Model / Serial / Lot Marker Coronary [facility] - [id number] Implanted:Qty: 1 on 01/26/2017 by Ankush Gonsalez MD at [place] [facility] [place] N/A: Aorta [employer] 09/23/2019 [facility] / [id number] documented as of this encounter Advance Directives [...] the patient have Health Care Power of Blood Bank Custodian? No Care Teams Worm Picker Relationship Specialty Start Date End Date Yaya Bhakta MD [address] [place] [address] [place] [address] PCP - General Family Medicine 07/06/22 documented as of this encounter
--- OUTSIDE RECORDS SUMMARY | 2023-09-25 15:33 | External Medical Summary | Summary of Care ---
Author Name Unknown Organization [facility] Address [address] [facility] [place] [address] Phone [phone] Care Team Providers Care Pump Operator Name Role Phone Yaya Bhakta MD Primary Care Provider [phone] Reason for Visit * Reason Comments Outpatient Testing Encounter Details Date Type Department Care Team (Late st Contact Info) Description 06/14/2023 8:10 AM EDT Laboratory Laboratory [address] [place] [phone] [address] [place] [address] Dyslipidemia, goal LDL below 70 Allergies Active Allergy Reactions Criticality Noted Date Comments Perflutren Lipid Microsphere Rash 017 documented as of this encounter (statuses as of 06/14/2023) Medications Medication Sig Dispensed Refills Start Date [...] as of this encounter (statuses as of 06/14/2023) Active Problems Problem Noted Date Diagnosed Date [...] as of this encounter (statuses as of 06/14/2023) Resolved Problems Problem Noted Date Diagnosed Date [...] as of this encounter (statuses as of 06/14/2023) Immunizations Name Administration Dates Next Due TDAP (age 11 and older)(Adacel) 06/21/2021 documented as of this encounter Social History Tobacco Use Types Packs/Day Years Used Date Smoking Tobacco: Never Smokeless Tobacco: Never Alcohol Use Standard Drinks/Week Comments Yes 0 (1 standard drink = 0.6 oz pur e alcohol) occasional Sex and Gender Information Value Date Recorded [...] Hospital [address] [place] [address] Parsons Miracle Howellt, [address] [place] [address] Pending Results Name Type Priority Associated Diagnoses Date /Time LIPID PANEL WITH DIRECT LDL IF TG IS HIGH Lab Routine Dyslipidemia, goal LDL below 70 06/14/2023 8:21 AM EDT Scheduled Procedures Name Priority Associated Diagnoses Date/Ti [...] this encounter Medical Devices Implanted Type Area Watermaster Device Identifier Shelf Expiration Date Model / Serial / Lot Marker Coronary [facility] - [id number] Implanted:Qty: 1 on 01/26/2017 by Ankush Gonsalez MD at [place] [facility] [place] N/A: Aorta [employer] 09/23/2019 [facility] / / [id number] documented as of this encounter Visit Diagnoses Diagnosis Dyslipidemia, goal [...] the patient have Health Care Power of Brim Edge Trimmer? No Care Teams Pump Operator Relationship Specialty Start Date End Date Yaya Bhakta MD [address] [place] [address] [place] [address] PCP - General Family Medicine 07/06/22 documented as of this encounter
--- OUTSIDE RECORDS SUMMARY | 2023-09-25 15:33 | External Medical Summary | Summary of Care ---
Author Name Unknown Organization [facility] Address [address] [facility] [place] [address] Phone [phone] Care Team Providers Care Usps Letter Carrier Name Role Phone Yaya Bhakta MD Primary Care Provider + [phone] Encounter Details Date Type Department Care Team (Late st Contact Info) Description 06/15/2023 Telephone Cardiology [place] Naveed Goodmanwn [address] [facility] [place] [address] [facility] [place] [address] Allergies Active Allergy Reactions Criticality Noted Date Comments Perflutren Lipid Microsphere Rash 017 documented as of this encounter (statuses as of 06/22/2023) Medications Medication Sig Dispensed Refills Start Date [...] as of this encounter (statuses as of 06/22/2023) Active Problems Problem Noted Date Diagnosed Date [...] as of this encounter (statuses as of 06/22/2023) Resolved Problems Problem Noted Date Diagnosed Date [...] as of this encounter (statuses as of 06/22/2023) Immunizations Name Administration Dates Next Due TDAP [...] AM EDT Phone (Outgoing) Mike Chaparro (Self) [phone] (M) Left Message 06/17/2023 11:45 AM EDT Phone (Outgoing) Mike Chaparro (Self) [phone] (M) 06/17/2023 11:49 AM EDT Phone (Outgoing) KaushikMike stevens (Self) [phone] (M) Left Message 06/17/2023 02:18 PM EDT Phone (Incoming) Mike Chaparro (Self) [phone] (M) 06/18/2023 11:53 AM EDT Phone (Outgoing) KaushikMike stevens (Self) [phone] (M) Left Message 06/22/2023 02:52 PM EDT Phone (Outgoing) Withrodney Mike (Self) [phone] (M) Left Message Again tried to reach patient. LVM If patient calls back, please TEAMS message me to see if I am free. Anaid Rodriguez Pharm D Clinical Pharmacist Cardiology 06/22/2023,2:53 PM * Telephone [...] or Wednesday before 3pm. Call him on [phone] * Telephone Encounter - Anaid Rodriguez RPh - 06/18/2023 11:55 AM EDT Contacts Type Contact Phone/Fax 06/15/2023 10:58 AM EDT Phone (Outgoing) Mike Chaparro (Self) [phone] (M) Left Message 06/17/2023 11:45 AM EDT Phone (Outgoing) Mike Chaparro (Self) [phone] (M) 06/17/2023 11:49 AM EDT Phone (Outgoing) Mike Chaparro (Self) [phone] (M) Left Message 06/17/2023 02:18 PM EDT Phone (Incoming) Mike Chaparro (Self) [phone] (M) 06/18/2023 11:53 AM EDT Phone (Outgoing) WithMike stevens (Self) [phone] (M) Left Message Again attempted to reach pt. LVM asking when he call back to leave time he is free today for me to return call If pt calls, please teams me so I can call him right back Anaid Donato Clinical Pharmacist Cardiology 06/18/2023,11:56 AM * Telephone Encounter - Valentina Santos OSA - 06/17/2023 2:18 PM EDT Pt is calling back to discuss results. * Telephone Encounter - Anaid Rodriguez RPh - 06/17/2023 11:49 AM EDT Contacts Type Contact Phone/Fax 06/15/2023 10:58 AM EDT Phone (Outgoing) Mike Chaparro (Self) [phone] (M) Left Message 06/17/2023 11:45 AM EDT Phone (Outgoing) Mike Chaparro (Self) [phone] (M) 06/17/2023 11:49 AM EDT Phone (Outgoing) Mike Chaparro (Self) [phone] (M) Left Message Pt called into call [...] 10:00 AM EST Telemedicine Sleep Disorders Ctr [facility] [address] [place] [phone] Miracle Parsons, [address] [place] [address] Scheduled Procedures Name Priority Associated Diagnoses Date/Ti [...] this encounter Medical Devices Implanted Type Area Home Care Chaplain Device Identifier Shelf Expiration Date Model / Serial / Lot Marker Coronary [facility] - [id number] Implanted:Qty: 1 on 01/26/2017 by Ankush Gonsalez [place] [facility] [place]A: Aorta [employer] 09/23/2019 [facility] / / [id number] documented as of this encounter Advance Directives [...] the patient have Health Care Power of Account Services Representative? No Care Teams Usps Letter Carrier Relationship Specialty Start Date End Date Yaya Bhakta MD [address] [place] [address] [place] [phone] PCP - General Family Medicine 07/06/22 documented as of this encounter
--- OUTSIDE RECORDS SUMMARY | 2023-09-25 15:33 | External Medical Summary | Summary of Care ---
Author Name Unknown Organization [facility] Address [address] [facility] [place] [address] Phone [phone] Care Team Providers Care Skinner Pelts Name Role Phone Yaya Bhakta MD Primary Care Provider + [phone] Encounter Details Date Type Department Care Team (Late st Contact Info) Description 06/15/2023 Telephone Cardiology [place] Naveed Goodmanwn [address] [facility] [place] [address] [facility] [place] [address] Allergies Active Allergy Reactions Criticality Noted Date [...] or Wednesday before 3pm. Call him on [phone] * Telephone Encounter - Anaid Rodriguez RPh - 06/18/2023 11:55 AM EDT Contacts Type Contact Phone/Fax 06/15/2023 10:58 AM EDT Phone (Outgoing) Mike Chaparro (Self) [phone] (M) Left Message 06/17/2023 11:45 AM EDT Phone (Outgoing) Mike Chaparro (Self) [phone] (M) 06/17/2023 11:49 AM EDT Phone (Outgoing) Mike Chaparro (Self) [phone] (M) Left Message 06/17/2023 02:18 PM EDT Phone (Incoming) Witherite, Mike (Self) [phone] (M) 06/18/2023 11:53 AM EDT Phone (Outgoing) Mike Chaparro (Self) [phone] (M) Left Message Again attempted to reach [...] AM EDT Phone (Outgoing) Mike Chaparro (Self) [phone] (M) Left Message 06/17/2023 11:45 AM EDT Phone (Outgoing) Mike Chaparro (Self) [phone] (M) 06/17/2023 11:49 AM EDT Phone (Outgoing) Mike Chaparro (Self) [phone] (M) Left Message Pt called into call [...] 10:00 AM EST Telemedicine Sleep Disorders Ctr [facility] [address] [place] [address] Miracle Parsons, [address] [place] [address] Scheduled Procedures Name Priority Associated Diagnoses Date/Ti [...] this encounter Medical Devices Implanted Type Area Hand Coke Drawer Device Identifier Shelf Expiration Date Model / Serial / Lot Marker Coronary [facility] - [id number] Implanted:Qty: 1 on 01/26/2017 by Ankush Gonsalez MD at [place] [facility] [place] N/A: Aorta [employer] [facility] [id number] documented as of this encounter Advance Directives [...] the patient have Health Care Power of Electron Beam Welder? No Care Teams Skinner Pelts Relationship Specialty Start Date End Date Yaya Bhakta MD [address] [place] [address] [place] [address] PCP - General Family Medicine 07/06/22 documented as of this encounter
--- OUTSIDE RECORDS SUMMARY | 2023-09-25 15:33 | External Medical Summary | Summary of Care ---
Author Name Unknown Organization [facility] Address [address] [place] [address] Phone [phone] Care Team Providers Care Lead Refiner Name Role Phone Yaya Bhakta MD Primary Care Provider + [phone] Encounter Details Date Type Department Care Team ([facility] st Contact Info) Description 08/10/2023 Specialty Pharmacy [facility], [facility] [place] [address] Medication, [facility] Specialty, [facility] [address] [address] Allergies Active Allergy Reactions Criticality Noted Date Comments Perflutren Lipid Microsphere Rash 017 documented as of this encounter (statuses as of 08/10/2023) Medications Medication Sig Dispensed Refills Start Date [...] as of this encounter (statuses as of 08/10/2023) Active Problems Problem Noted Date Diagnosed Date [...] as of this encounter (statuses as of 08/10/2023) Resolved Problems Problem Noted Date Diagnosed Date [...] as of this encounter (statuses as of 08/10/2023) Immunizations Name Administration Dates Next Due TDAP [...] 10:00 AM EST Telemedicine Sleep Disorders Ctr [facility] [address] [place] [address] Miracle Parsons, [address] [place] [address] Scheduled Procedures Name Priority Associated Diagnoses Date/Ti [...] this encounter Medical Devices Implanted Type Area Custom Car Builder Device Identifier Shelf Expiration Date Model / Serial / Lot Marker Coronary [facility] - [id number] Implanted:Qty: 1 on 01/26/2017 by Ankush Gonsalez MD [place] [facility] [place]A: Aorta [employer] 09/23/2019 [facility] / / [id number] documented as of this encounter Advance Directives [...] the patient have Health Care Power of Laborer Cheesemaking? No Care Teams Lead Refiner Relationship Specialty Start Date End Date Yaya Bhakta MD [address] [place] [address] [place] [phone] PCP - General Family Medicine 07/06/22 documented as of this encounter
--- OUTSIDE RECORDS SUMMARY | 2023-09-25 15:33 | External Medical Summary | Summary of Care ---
Author Name Unknown Organization [facility] Address [address] [facility] [place] [address] Phone [phone] Care Team Providers Care Pig Handler Name Role Phone Yaya Bhakta MD Primary Care Provider + [phone] Reason for Visit * Reason Onset Date Comments Pre Op Discussion 03/16/2023 Encounter Details Date Type Department Care Team (Late st Contact Info) Description 03/16/2023 Telephone OR [facility], Operating Room [facility] [address] [place] [phone] Jeremy Corral MD [address] [place] [address] Pre Op Discussion Allergies Active Allergy Reactions Criticality Noted Date [...] encounter Miscellaneous Notes * Telephone Encounter - Cheyenne Quintero RN - 03/16/2023 2:12 PM EDT Called patient for pre anesthesia evaluation for upcoming procedure ,no answer. Left message on machine /request return call documented in this encounter Plan of Treatment Upcoming Encounters Date Type Department Care Team (Late st Contact Info) Description 10/14/2023 10:00 AM EST Telemedicine Sleep Disorders Ctr [facility] [address] [place] [address] Miracle Parsons DO [address] [place] [address] Scheduled Procedures [...] this encounter Medical Devices Implanted Type Area Belt Builder Device Identifier Shelf Expiration Date Model / Serial / Lot Marker Coronary [facility] - [id number] Implanted:Qty: 1 on 01/26/2017 by Ankush Gonsalez MD at [place] [facility] [place] N/A: Aorta [employer] 09/23/2019 [facility] / / [id number] documented as of this encounter Advance Directives [...] the patient have Health Care Power of Bridge Builder? No Care Teams Pig Handler Relationship Specialty Start Date End Date Yaya Bhakta MD [address] [place] [address] [place] [address] PCP - General Family Medicine 07/06/22 documented as of this encounter
--- OUTSIDE RECORDS SUMMARY | 2023-09-25 15:33 | External Medical Summary | Summary of Care ---
Author Name Unknown Organization [facility] Address [address] [facility] [place] [address] Phone [phone] Care Team Providers Care Manager Air Name Role Phone Yaya Bhakta MD Primary Care Provider + [phone] Encounter Details Date Type Department Care Team (Late st Contact Info) Description 06/15/2023 Telephone Cardiology [place] Naveed Goodmanwn [address] [facility] [place] [address] [facility] 21 [facility] [place] [address] Allergies Active Allergy Reactions Criticality Noted Date [...] or Wednesday before 3pm. Call him on [phone] * Telephone Encounter - nAaid Rodriguez RPh - 06/18/2023 11:55 AM EDT Contacts Type Contact Phone/Fax 06/15/2023 10:58 AM EDT Phone (Outgoing) Mike Chaparro (Self) [phone] (M) Left Message 06/17/2023 11:45 AM EDT Phone (Outgoing) Mike Chaparro (Self) [phone] (M) 06/17/2023 11:49 AM EDT Phone (Outgoing) Mike Chaparro (Self) [phone] (M) Left Message 06/17/2023 02:18 PM EDT Phone (Incoming) Witherite, Mike (Self) [phone] (M) 06/18/2023 11:53 AM EDT Phone (Outgoing) Mike Chaparro (Self) [phone] (M) Left Message Again attempted to reach [...] AM EDT Phone (Outgoing) Mike Chaparro (Self) [phone] (M) Left Message 06/17/2023 11:45 AM EDT Phone (Outgoing) Mike Chaparro (Self) [phone] (M) 06/17/2023 11:49 AM EDT Phone (Outgoing) Mike Chaparro (Self) [phone] (M) Left Message Pt called into call [...] 10:00 AM EST Telemedicine Sleep Disorders Ctr [facility] [address] [place] [address] Miracle Parsons, [address] [place] [address] Scheduled Procedures Name Priority Associated Diagnoses Date/Ti [...] this encounter Medical Devices Implanted Type Area Electrical Assemblies Supervisor Device Identifier Shelf Expiration Date Model / Serial / Lot Marker Coronary [facility] - [id number] Implanted:Qty: 1 on 01/26/2017 by Ankush Gonsalez MD at [place] [facility] [place] N/A: Aorta [employer] 09/23/2019 [facility] / [id number] documented as of this encounter Advance Directives [...] the patient have Health Care Power of Energy Conservation Representative? No Care Teams Manager Air Relationship Specialty Start Date End Date Yaya Bhakta MD [address] [place] [address] [place] [address] PCP - General Family Medicine 07/06/22 documented as of this encounter
--- OUTSIDE RECORDS SUMMARY | 2023-09-25 15:34 | External Medical Summary | Summary of Care ---
Author Name Unknown Organization [facility] Address [address] [place] [address] Phone [phone] Care Team Providers Care Fagot Maker Name Role Phone Yaya Bhakta MD Primary Care Provider [phone] Encounter Details Date Type Department Care Team Description 05/10/2023 Specialty Pharmacy [facility], [address] [address] Medication, [facility] Specialty Refill, [address] [address] Allergies Active Allergy Reactions Severity Noted Date Comments Perflutren Lipid Microsphere Rash 017 documented as of this encounter (statuses as of 05/10/2023) Medications Medication Sig Dispensed Refills Start Date [...] as of this encounter (statuses as of 05/10/2023) Active Problems Problem Noted Date Obstructive sleep apnea 05/22/2022 Nocturnal hypoxia 05/22/2022 BMI 37.0-37.9, adult 05/04/2022 Overview: 255 Generalized anxiety disorder 05/04/2022 Prediabetes 10/06/2021 Overview: Per Prediabetes protocol Elevated hemidiaphragm 04/27/2017 LVH (left ventricular hypertrophy) 04/23 Diastolic dysfunction 04/23/2017 Atelectasis of both lungs 04/07/2017 ASCVD (arteriosclerotic cardiovascular d isease) 02/08/2017 S/P CABG x 5 02/01/2017 Dyslipidemia, goal LDL below 70 01/22/20 17 Incomplete right bundle branch block Adjustment disorder with depressed mood 04/04/2015 documented as of this encounter (statuses as of 05/10/2023) Resolved Problems Problem Noted Date Resolved Date Pneumonitis 04/07/2017 05/04/2022 S/P CABG x 6 02/08/2017 02/08/2017 Class 2 obesity with body ma ss index (BMI) of 35 to 39.9 without comorbidity 12/15/2016 02/10/2017 Overview: bmi= 39.72 12/15/16 Left-sided chest pain 12/10/2016 05/04/2022 Overview: ICD-10 update of inactive term INFORMATION 05/23/2016 02/10/2017 Overview: 10 year cardiovascular risk of 5.6%, 1.5% OptiMARK Left-sided chest pain 05/19/2016 12/10/2016 Overview: ICD-10 update of inactive term Elevated blood pressure, situational 05/19/2016 12/10/2016 Severe obesity with body mas s index (BMI) of 35.0 to 39.9 with serious comorbidity 04/04/2015 12/10/2016 Overview: bmi= 36.04 04/04/15 ICD-10 update of inactive diagnosis INFORMATION 09/23/2014 02/10/2017 Overview: 10 here cardiovascular risk of 7% Severe obesity with body mas s index (BMI) of 35.0 to 39.9 with serious comorbidity 09/13/2014 12/10/2016 Overview: bmi= 35.44 09/13/14 ICD-10 update of inactive diagnosis Cough 09/13/2014 12/10/2016 OBESITY, BMI 30-34 (SEE ACTUAL BMI) 11/14/2009 12/10/2016 Overview: Per Obesity Taxonomy Elevated blood pressure, situational 06/28/2009 07/11/2015 Overview: Modified per HTN Taxonomy. Male infertility 06/22/2005 07/11/2015 ACUTE URI NOS 06/22/2005 07/11/2015 Chronic rhinitis 06/22/2005 02/10/2017 TESTICULAR PAIN 06/22/2005 07/11/2015 ELEV BL PRES W-O HYPERTN 06/22/2005 009 Overview: Modified per HTN Taxonomy. SPRAIN LUMBOSACRAL 05/05/2005 07/11/2015 Spasm of muscle 05/05/2005 07/11/2015 ADVANCE DIRECTIVE INFORMATION 02/24/2005 Overview: No, Advance Directive brochure given to patient. 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 Major depressive disorder, recurrent episode, mo derate 03/04/2004 04/04/2015 Abnormal weight gain 11/17/2001 11/09/2003 Family history of other cardiovascular diseases 11/14/2001 07/11/2015 Overview: ICD-10 update of inactive term LUMBAGO 11/14/2001 11/09/2003 Dyslipidemia, goal to be determined 11/14/2001 07/17/2013 ELEV BL PRES W-O HYPERTN 11/14/2001 004 Allergic rhinitis 06/30/2000 07/11/2015 Dyslipidemia, goal LDL below 130 02/08/2017 documented as of this encounter (statuses as of 05/10/2023) Immunizations Name Administration Dates Next Due TDAP (age 11 and older)(Adacel) 06/21/2021 documented as of this encounter Social History Tobacco Use Types Packs/Day Years Used Date Smoking Tobacco: Never Smokeless Tobacco: Never Alcohol Use Standard Drinks/Week Comments Yes 0 (1 standard drink = 0.6 oz pur e alcohol) occasional Food Insecurity Answer Date Recorded Within the past 12 months, y ou worried that your food would run out before you got money to buy more. Never true 10/02/2019 Within the past 12 months, t he food you bought just didn't last and you didn't have money to get more. Never true 10/02/2019 Sex Assigned at Date Recorded Male 02/03/2020 2:01 PM E DT Job Start Date Occupation Industry Not on file Not on file Not on file documented as of this encounter Progress Notes * Imani Fernandez CPhT - 05/10/2023 3:24 PM EDT Prescribed medication: Medication: Repatha Shipment date: 05/13 Delivery method: Specialty Mail Location Medication Delivered too? Temporary Address: [address] [place] [address] [address] [place] [address] Imani Fernandez CPhT [facility] 05/10/2023,3:24 PM documented in this encounter Plan of Treatment Upcoming Encounters Date Type Specialty Care Team Description 10/14/2023 Telemedicine Sleep Disorders Miracle Parsons, DO [address] [place] [address] Scheduled Procedures Name Priority Associated Diagnoses Date/Ti [...] this encounter Medical Devices Implanted Type Area Medical Staffing Coordinator Device Identifier Shelf Expiration Date Model / Serial / Lot Marker Coronary [facility] - [id number] Implanted:Qty: 1 on 01/26/2017 by Ankush Gonsalez MD at OR [facility] [place] N/A: Aorta [employer] 09/23/2019 [facility] / / [id number] documented as of this encounter Advance Directives [...] the patient have Health Care Power of Personnel Monitor? No Care Teams Fagot Maker Relationship Specialty Start Date End Date Yaya Bhakta MD [address] [place] [address] [place] [address] PCP - General Family Medicine 07/06/22 documented as of this encounter
--- OUTSIDE RECORDS SUMMARY | 2023-09-25 15:34 | External Medical Summary | Summary of Care ---
Author Name Unknown Organization [facility] Address [address] [facility] [place] [address] Phone [phone] Care Team Providers Care Wood Inspector Name Role Phone Yaya Bhakta MD Primary Care Provider + [phone] Encounter Details Date Type Department Care Team Description 05/31/2023 Orders Only Cardiology [place] [address] [place] [address] [facility] [place] [address] Dyslipidemia, goal LDL below 70* Allergies Active Allergy Reactions Severity Noted Date Comments Perflutren Lipid Microsphere Rash 017 documented as of this encounter (statuses as of 05/31/2023) Medications Medication Sig Dispensed Refills Start Date [...] as of this encounter (statuses as of 05/31/2023) Active Problems Problem Noted Date Obstructive sleep [...] as of this encounter (statuses as of 05/31/2023) Resolved Problems Problem Noted Date Resolved Date [...] as of this encounter (statuses as of 05/31/2023) Immunizations Name Administration Dates Next Due TDAP [...] Progress Notes * Anaid Rodriguez RPh - 05/31/2023 10:26 AM EDT Lvm for patient to obtain lipid panel Order placed documented in this encounter Plan of Treatment Upcoming Encounters Date Type Specialty Care Team Description 10/14/2023 Telemedicine Sleep Disorders Miracle Parsons, DO [address] [place] [address] Scheduled Orders Name Type Priority Associated Diagnoses Orde r Schedule LIPID PANEL WITH DIRECT LDL IF TG IS HIGH Lab Routine Dyslipidemia, goal LDL below 70 Expected: 06/01/2023, Expires: 05/31/2024 Scheduled Procedures Name Priority Associated Diagnoses Date/Ti [...] this encounter Medical Devices Implanted Type Area Bagging Machine Operator Device Identifier Shelf Expiration Date Model / Serial / Lot Marker Coronary [facility] - [id number] Implanted:Qty: 1 on 01/26/2017 by Ankush Gonsalez MD at OR [facility] [place] N/A: Aorta [employer] 09/23/2019 [facility] / / [id number] documented as of this encounter Visit Diagnoses Diagnosis Dyslipidemia, goal LDL below 70- Primary Other and unspecified hyperlipidemia documented in this [...] the patient have Health Care Power of Oil Recovery Unit Operator? No Care Teams Wood Inspector Relationship Specialty Start Date End Date Yaya Bhakta MD [address] [place] [address] [place] [address] PCP - General Family Medicine 07/06/22 documented as of this encounter
--- OUTSIDE RECORDS SUMMARY | 2023-09-25 15:34 | External Medical Summary | Summary of Care ---
Author Name Unknown Organization [facility] Address [address] [facility] [place] [address] Phone [phone] Care Team Providers Care Composition Tile Layer Name Role Phone Yaya Bhakta MD Primary Care Provider + [phone] Encounter Details Date Type Department Care Team Description 05/31/2023 Orders Only Cardiology [place] [address] [place] [address] [facility] [place] [address] Dyslipidemia, goal LDL below 70* Allergies Active Allergy Reactions Severity Noted Date Comments Perflutren Lipid Microsphere Rash 017 documented as of this encounter (statuses as of 06/08/2023) Medications Medication Sig Dispensed Refills Start Date [...] 08/23/2022 Active Additional Information Patient taking differently: Q-1999, Reported on 03/17/2023 Citalopram Hydrobromide 40 MG [...] as of this encounter (statuses as of 06/08/2023) Active Problems Problem Noted Date Obstructive sleep [...] as of this encounter (statuses as of 06/08/2023) Resolved Problems Problem Noted Date Resolved Date [...] as of this encounter (statuses as of 06/08/2023) Immunizations Name Administration Dates Next Due TDAP [...] Progress Notes * Anaid Rodriguez RPh - 06/08/2023 10:07 AM EDT Spoke with pt, he will get lab work done Anaid Rodriguez Pharm D Clinical Pharmacist Cardiology 06/08/2023,10:07 AM * Anaid Rodriguez RPh - 05/31/2023 10:26 AM EDT Lvm for patient to obtain lipid panel Order placed documented in this encounter Plan of Treatment Upcoming Encounters Date Type Specialty Care Team Description 10/14/2023 Telemedicine Sleep Disorders Miracle Parsons, DO [address] [place] [address] Scheduled Orders Name Type Priority Associated Diagnoses [...] this encounter Medical Devices Implanted Type Area Teacher Industrial Arts Device Identifier Shelf Expiration Date Model / Serial / Lot Marker Coronary [facility] - [id number] Implanted:Qty: 1 on 01/26/2017 by Ankush Gonsalez MD at OR [facility] N/A: Aorta [employer] 09/23/2019 [facility] / / [id number] documented as of this encounter Visit Diagnoses [...] the patient have Health Care Power of Sail Repairer? No Care Teams Composition Tile Layer Relationship Specialty Start Date End Date Yaya Bhakta MD [address] [place] [address] [place] [address] PCP - General Family Medicine 07/06/22 documented as of this encounter
--- OUTSIDE RECORDS SUMMARY | 2023-09-25 15:34 | External Medical Summary ---
Author Name Unknown Address Unknown Organization K01:[facility] - [address] [facility] [address] [place] [address] Laboratory Report Ordering Provider Test Date Status JAYDEN ISSA 06/14/2023 08:21:20 Final Observation Date Value Abnormality Reference (Units ) Status Triglyceride 06/14/2023 08:21:20 276 Above high normal <=174 (mg/dL) Final Triglyceride Reference Range s (mg/dL):
<150 Acceptable
150-174 Borderline high
175-499 High
>=500 Very high Cholesterol 06/14/2023 08:21:20 285 Above high normal <200 (mg/dL) Final Total Cholesterol Reference Ranges (mg/dL):
<200 Desirable
200-239 Borderline high
>=240 High HDL 06/14/2023 08:21:20 40 >39 (mg/dL ) Final HDL Cholesterol Reference Ra nges (mg/dL):
>=60 High (Desirable)
<50 Low (Undesirable) For Females
<40 Low (Undesirable) For Males NON-HDL CHOLESTEROL 06/14/2023 08:21:20 245 Above high normal <=159 (mg/dL) Final Non-HDL Cholesterol Referenc e Range (mg/dL):
<100 Target level for high risk ASCVD patient
<130 Optimal for general population
130-159 Near optimal for general population
160-189 Borderline High
190-219 High
>=220 Very High LDL, (calculated) 06/14/2023 08:21:20 190 Above high n ormal <=129 (mg/dL) Final LDL Cholesterol Reference Ra nges (mg/dL):
<70 Target level for high risk ASCVD patient
<100 Optimal for general population
100-129 Near optimal for general population
130-159 Borderline high
160-189 High
>=190 Very high Performing Location LAB[facility]ATORY [facility] - [address] [facility] [address]
--- NOTE | 2023-09-25 15:48 | Emergency Department Note ---
Impression & Plan Chest pain ADMIT ED Provider Note HPI: History obtained from patient The patient is a 53-year-old male with history of coronary artery disease, status post CABG in 2017, presents emergency department chief complaint left- sided chest pain. Patient states that he developed some left-sided chest pain that radiated to his left jaw last night. Patient states that he took some antacid tablets and aspirin and then drove throughout the night and his tractor trailer until he came home this morning. Patient states he went to bed at about 9 AM with mild chest pain and when he awoke he still had mild chest pain and therefore came to the ED to be assessed. On arrival here to the ED the patient is mildly hypertensive at 159/98, he is resting comfortably in bed and otherwise appears to be in no acute distress. He states he does currently have chest pain but it is very mild in nature. ROS: - Per HPI Differential Diagnosis: Acute coronary syndrome, pulmonary embolism, esophagitis, pneumothorax, aortic dissection, amongst other potential pathologies. *Outpatient medications and allergy history reviewed. PE: General: Alert HEENT: Normocephalic, trachea midline Eyes: Extraocular eye movement is intact, no scleral erythema Pulmonary: Clear to auscultation bilaterally, no wheezing Cardio: Regular rate and rhythm GI: Abdomen is soft to palpation : No suprapubic tenderness MSK: No evidence of trauma or malformation of the extremities, no edema Skin: No evidence of rash Neuro: Alert, no focal deficits Psychiatric: Cooperative INDEPENDENT INTERPRETATIONS: case monitor: (As interpreted by myself): - An order was placed for continuous cardiac monitoring - Patient was noted to be in sinus rhythm with a rate of 82 EKG: (As interpreted by myself): Rate: 80 Rhythm: Normal sinus rhythm Intervals: Within normal limits ST changes: No ST elevation Time: 1538 Chest x-ray: (As interpreted by myself): No acute disease Interventions provided in ED: -Cardiomegaly without acute infiltrate Medical Decision Making: Lab work shows no leukocytosis, hemoglobin is normal, platelet count is normal, CMP does not show any critical findings. Troponin did return elevated at 303. EKG does not show any evidence of acute ischemic changes per my interpretation. Chest x-ray does not show any evidence of critical pathology. On my reassessment the patient is resting comfortably in bed. He states he does have some mild chest pain. He was given aspirin and started on a heparin drip. I did discuss the patient's presentation with on-call cardiology for [facility], Dr. Mir, and he is in agreement to the above plan and for the patient to be admitted to the hospitalist service with cardiology consultation. Case was then discussed with the [facility] Hortencia Saucedo PA-C, and the patient was placed for admission to the service of Dr. Tran. Consultants/Discussions held with other healthcare providers: -Cardiology, Dr. Mir -Hospitalist, Dr. Tran Disposition discussion held by myself with: -Patient and at bedside * CRITICAL CARE TIME: ( 37 ) minutes -Management of patient with non-ST elevation myocardial infarction requiring initiation of heparin drip, interpretation of diagnostic studies including EKG, discussion with other healthcare providers including cardiology as well as the hospitalist service for arrangement of admission. Diagnosis: 1. Chest pain, acute 2. Elevated troponin, acute 3. History of coronary artery disease, status post CABG Disposition: Admission Sesar Rose DO Emergency Medicine Past Med/Surg History Medical History Diastolic dysfunction Morbid obesity Mood disorder KADE (obstructive sleep apnea) HTN (hypertension) CAD (coronary artery disease) Hyperlipidemia Surgical History S/P CABG x 5 Family History Other Heart disease Social History Smoking Status: Never smoker Hx Alcohol Use: Yes Alcohol type: beer Hx Substance Use: No Preferred Language: Azeri Feels Safe at Home: Yes Allergies Allergies Allergy/AdvReac Type Severity Reaction Status Date / Time Microbubbles Allergy Severe Hives Uncoded 01/11/23 10:12 Home Meds Home Medications Medication Instructions Recorded Confirmed rosuvastatin 40 mg tablet 40 mg PO HS 01/20/20 09/25/23 acetaminophen 500 mg tablet 500 mg PO Q6H PRN Pain 03/28/21 09/25/23 (Tylenol Extra Strength) ibuprofen 200 mg tablet 600 mg PO Q6H PRN Pain 03/28/21 09/25/23 lisinopril 5 mg tablet 5 mg PO HS 03/28/21 09/25/23 cholecalciferol (vitamin D3) 25 25 mcg PO DAILY 09/25/23 09/25/23 mcg (1,000 unit) capsule (Vitamin D3) citalopram 40 mg tablet 40 mg PO DAILY 09/25/23 09/25/23 evolocumab 140 mg/mL subcutaneous 140 mg subcut Q14D 09/25/23 09/25/23 pen injector (Repsara SureSawick) multivitamin 1 tab PO DAILY 09/25/23 09/25/23 Results & Data (ED) Vital Signs Vital Signs - 24 hr 09/25/23 15:29 09/25/23 15:39 09/25/23 15:39 Temperature 36.9 C Temperature Source Temporal Artery Scan Pulse Rate 82 Pulse Rate [Apical] 74 Pulse Rhythm [Apical] Regular Pulse Strength [Apical] Normal Respiratory Rate 20 19 Respiratory Effort / Characteristics Non-Labored Non-Labored Spontaneous Respiratory Depth Normal Normal Respiratory Pattern Regular Blood Pressure 159/98 H Blood Pressure [Right Arm] 149/96 H Blood Pressure Mean 118 Blood Pressure Mean [Right Arm] 113 Blood Pressure Position [Right Arm] Semi-fowlers Pulse Oximetry 96 95 94 Oxygen Delivery Method Room Air Room Air Room Air Sepsis Recent Fever Within 48 Hours No Sepsis New/Unexplained Change in Mental Status No Sepsis Action Taken by Nursing No Action Required 09/25/23 15:39 09/25/23 16:24 09/25/23 18:29 Temperature 36.8 C Temperature Source Oral Pulse Rate 74 Pulse Rate [Apical] 80 Pulse Rhythm [Apical] Regular Pulse Strength [Apical] Normal Respiratory Rate 16 17 Respiratory Effort / Characteristics Non-Labored Spontaneous Respiratory Depth Normal Respiratory Pattern Regular Blood Pressure Blood Pressure [Right Arm] 147/107 H Blood Pressure Mean Blood Pressure Mean [Right Arm] 120 Blood Pressure Position [Right Arm] Semi-fowlers Pulse Oximetry 95 94 Oxygen Delivery Method Room Air Room Air Sepsis Recent Fever Within 48 Hours Sepsis New/Unexplained Change in Mental Status Sepsis Action Taken by Nursing Laboratory Data 09/25/23 15:45 09/25/23 15:45 Lab Results 09/25/23 09/25/23 Range/Units 15:45 17:45 WBC 10.34 (4.8-10.8) K/ul RBC 5.52 (4.70-6.10) M/uL Hgb 16.0 (14.0-18.0) g/dl Hct 46.5 (42.0-52.0) % MCV 84.2 (80.0-100.0) fL MCH 29.0 (25.0-34.0) pg MCHC 34.4 (32.0-36.0) g/dL RDW Std Deviation 39.9 (36.4-46.3) fL RDW Coeff of Markie 13.0 (11.5-14.5) % Plt Count 310 (130-400) K/uL MPV 9.8 (9.4-12.4) fL Immature Gran % (Auto) 0.4 % Neut % (Auto) 58.4 % Lymph % (Auto) 28.9 % Curry % (Auto) 10.6 % Eos % (Auto) 1.0 % Baso % (Auto) 0.7 % Neut # (Auto) 6.04 (1.40-6.50) K/uL Lymph # (Auto) 2.99 (1.20-3.40) K/uL Curry # (Auto) 1.10 H (0.11-0.59) K/uL Eos # (Auto) 0.10 (0.00-0.50) K/uL Baso # (Auto) 0.07 (0.00-0.20) K/uL Immature Gran # (Auto) 0.04 (0.01-0.20) K/uL PT 10.5 (9.0-12.0) Seconds INR 1.0 (0.9-1.1) APTT 27 (21-31) Seconds PTT Ratio 1.0 Sodium 135 L (136-145) mmol/L Potassium 3.6 (3.5-5.1) mmol/L Chloride 100 (98-107) mmol/L Carbon Dioxide 29 (21-32) mmol/L Anion Gap 6 (3-11) BUN 13 (6-23) mg/dl Creatinine 0.87 (0.6-1.4) mg/dl Est Cr Clr Drug Dosing 122.7 ml/min Est GFR ( Amer) 113.4 ml/min Est GFR (Non-Af Amer) 97.8 ml/min BUN/Creatinine Ratio 14.9 (10-20) Glucose 96 (70-99(Fasting)) mg/dl Calcium 9.2 (8.6-10.3) mg/dl Total Bilirubin 0.5 (0.2-1.0) mg/dl AST 27 (13-39) U/L ALT 39 (7-52) U/L Alkaline Phosphatase 46 (34-104) U/L Troponin I High Sens 303.3 H* 351.3 H* (0-20) pg/ml Total Protein 7.2 (6.0-8.3) gm/dl Albumin 4.2 (3.4-5.0) gm/dl Globulin 3.0 (2.5-4.0) gm/dl Albumin/Globulin Ratio 1.4 (0.9-2) Lipase 24 (11-82) U/L Administered Medications Heparin Sodium/Dextrose (Heparin Sodium/Dextrose) 25,000 units in 500 mls @ 32 mls/hr IV .[id number] [facility]; Protocol Stop: 10/25/23 16:44 Last Admin: 09/25/23 16:55 Dose: 1,600 units/hr, 32 mls/hr Documented By: HCEVY Co-signed By: Discontinued Medications Aspirin (Aspirin Chew 324 Mg) 324 mg PO NOW STA Stop: 09/25/23 16:30 Last Admin: 09/25/23 16:54 Dose: 324 mg Documented By: CHEVY Imaging Data Radiologist's Impression: Chest X-Ray 09/25/23 15:39 XR chest 1V portable HISTORY: 53 years-old Male Chest pain, nonspecific COMPARISON: 03/28/2021 TECHNIQUE: AP view of the chest FINDINGS: Cardiac silhouette is enlarged. Median sternotomy. Bibasilar opacities. No pneumothorax, pleural effusion or overt pulmonary edema. Bones appear grossly intact. IMPRESSION: 1. Cardiomegaly without acute process of the chest. 2. Mild bibasilar opacities favor atelectasis. ACT 112: Negative or not required by law. The above report was generated using voice recognition software. It may contain grammatical, syntax or spelling errors. Electronically signed by: Jonathan Zapata M.D. 09/25/2023 4:13 PM Discharge Plan Visit Data Chief Complaint: Chest Pain Stated Complaint: CHEST PAIN, PRESSURE ED Provider: Sesar Rose Discharge Problem: Chest pain Forms Stand Alone Forms: My [facility] Prescriptions Prescriptions: No Action rosuvastatin 40 mg tablet 40 mg PO HS Rx Instructions: has not been taking acetaminophen [Tylenol Extra Strength] 500 mg Tablet 500 mg PO Q6H PRN (Reason: Pain) ibuprofen 200 mg Tablet 600 mg PO Q6H PRN (Reason: Pain) lisinopril 5 mg tablet 5 mg PO HS multivitamin [Multi-Vitamin] Tablet 1 tab PO DAILY citalopram 40 mg tablet 40 mg PO DAILY cholecalciferol (vitamin D3) [Vitamin D3] 25 mcg (1,000 unit) Capsule 25 mcg PO DAILY Repatha SureClick 140 mg/mL pen injector 140 mg SUBCUT Q14D Rx Instructions: last took before [facility] Referrals Referrals: Yaya Bhakta MD [Primary Care Provider] - Discharge Problem: Chest pain Qualifiers: Chest pain type: unspecified Qualified Code(s): R07.9 - Chest pain, unspecified
[2023-09-25 16:03] LABS: Basophils # (auto) 0.07 K/uL (0.00-0.20); Basophils % (auto) 0.7 %; Hematocrit (blood only) 46.5 % (42.0-52.0); Immature Granulocytes # (auto) 0.04 K/uL (0.01-0.20); Immature Granulocytes % (auto) 0.4 %; Lymphocytes # (auto) 2.99 K/uL (1.20-3.40); Lymphocytes % (auto) 28.9 %; Mean Corpuscular Hgb Conc 34.4 g/dL (32.0-36.0); Mean Corpuscular Volume 84.2 fL (80.0-100.0); Mean Platelet Volume 9.8 fL (9.4-12.4); Monocytes % (auto) 10.6 %; Neutrophils # (auto) 6.04 K/uL (1.40-6.50); Neutrophils % (auto) 58.4 %; Platelet Count 310 K/uL (130-400); RDW Standard Deviation 39.9 fL (36.4-46.3); Red Blood Count 5.52 M/uL (4.70-6.10); White Blood Count 10.34 K/ul (4.8-10.8)
--- NOTE | 2023-09-25 16:14 | XRay Report ---
XR chest 1V portable HISTORY: 53 years-old Male Chest pain, nonspecific COMPARISON: 03/28/2021 TECHNIQUE: AP view of the chest FINDINGS: Cardiac silhouette is enlarged. Median sternotomy. Bibasilar opacities. No pneumothorax, pleural effu kaci or overt pulmonary edema. Bones appear grossly intact. IMPRESSION: 1. Cardiomegaly without acute process of the chest. 2. Mild bibasilar opacities favor atelectasis. ACT 112: Negative or not required by law. The above report was generated using voice recognition software. It may contain grammatical, syntax o r spelling errors. Electronically signed by: Jonathan Zapata M.D. 09/25/2023 4:13 PM
[2023-09-25 16:20] LABS: Albumin Globulin Ratio 1.4 (0.9-2); Albumin Level 4.2 gm/dl (3.4-5.0); BUN Creatinine Ratio 14.9 (10-20); Bilirubin,Total 0.5 mg/dl (0.2-1.0); Calcium 9.2 mg/dl (8.6-10.3); Creatinine Clr Calc Pharmacy 122.7 ml/min; Est GFR (African American) 113.4 ml/min; Est GFR (Non-African American) 97.8 ml/min; Potassium 3.6 mmol/L (3.5-5.1); Total Protein 7.2 gm/dl (6.0-8.3)
[2023-09-25] MEDS ORDERED: Heparin IV Adult Wt-Based Standard *NO* INITIAL Bolus Protocol IV STA (16:29)
[2023-09-25 16:30] LABS: Prothrombin Time 10.5 Seconds (9.0-12.0); Troponin I High Sensitivity 303.3 pg/ml (0-20)
[2023-09-25] MEDS: ASPIRIN CHEW 324 MG PO STA (16:54)
[2023-09-25] MEDS: HEPARIN SODIUM/DEXTROSE 25,000 UNITS/500 ML BAG IV SCH (16:55)
[2023-09-25 17:00] LABS: Partial Thromboplastin Time 27 Seconds (21-31)
--- NOTE | 2023-09-25 17:05 | History & Physical Report ---
Date of Service September 25, 2023 Assessment & Plan (1) NSTEMI (non-ST elevated myocardial infarction): (2) CAD (coronary artery disease): Plan: This is a 53-year-old male with PMH of CAD status post CABG x 5 in 2017, morbid obesity, dyslipidemia, prediabetes, KADE, incomplete right bundle branch block, mood disorder and other medical problems listed below who presents with ongoing chest pain since yesterday. Left substernal CP radiating to jaw and shoulder yesterday, persisting into today. Resolved while in ED In setting on non-compliance with cholesterol medications Stress echo in Mar 2022 with EF 55% No acute ST changes on EKG but HS trop 303.3 -> 351.3 ED provider discussed case with Dr. Mir - started on IV heparin, cards to evaluate in AM Given 324 mg aspirin in ED, 40mg rosuvastatin, monitor on tele, repeat EKG in AM, 2D echo, NPO @ [place] A1c and lipids in AM (3) HTN (hypertension): Plan: BP elevated 147/107. Giving PM lisinopril dose, continue monitoring closely (4) Hyperlipidemia: Plan: Previously maintained on statin, Repatha but has not taken either medication since before . Resumed statin this evening, repeat lipid panel in AM (5) Mood disorder: Plan: Chronic, stable. Continue citalopram (6) Morbid obesity: Plan: BMI 38.2. Continue discussion about lifestyle modifications during admission (7) KADE (obstructive sleep apnea): Plan: CPAP HS DVT Ppx: IV heparin Code status: FULL PCP: Yony Dispo: admitted to PCU Patient seen in collaboration with Dr. Tran. Please see addendum. I spent a total of 75 minutes coordinating, documenting, and providing care for this patient excluding time spent in the performance of separately billed services. History of Present Illness Chief Complaint: Chest pain Primary Care Provider: Yaya Bhakta MD This is a 53-year-old male with PMH of CAD status post CABG x 5 in 2017, morbid obesity, dyslipidemia, prediabetes, KADE, incomplete right bundle branch block, mood disorder and other medical problems listed below who presents with ongoing chest pain since yesterday. 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 [place] like acid reflux and took some Tums as well as to aspirin with some relief. Also notes heaviness and tingling feeling in bilateral arms as he continued to drive home, where he arrived around 9 this morning. Noted that his blood pressure was elevated higher than usual. Went to sleep for few hours and when he woke up, still had dull aching discomfort in left chest wall and fianc urged him to come to ED for further evaluation. Since arrival, patient received 324 mg of aspirin. At time of evaluation, no longer experiencing chest pain. Denies any palpitations, diaphoresis, shortness of breath, nausea or vomiting. Stopped taking Repatha right before as he found the injections to be painful and irritating. Also stopped taking rosuvastatin around that time. No longer taking baby aspirin either. Patient is a non-smoker, drinks occasionally. Allergies Allergy/AdvReac Type Severity Reaction Status Date / Time Microbubbles Allergy Severe Hives Uncoded 01/11/23 10:12 Home Medications Medication Instructions Recorded Confirmed Type rosuvastatin 40 mg tablet 40 mg PO HS 01/20/20 09/25/23 History acetaminophen 500 mg tablet 500 mg PO Q6H PRN Pain 03/28/21 09/25/23 History (Tylenol Extra Strength) ibuprofen 200 mg tablet 600 mg PO Q6H PRN Pain 03/28/21 09/25/23 History lisinopril 5 mg tablet 5 mg PO HS 03/28/21 09/25/23 History cholecalciferol (vitamin D3) 25 25 mcg PO DAILY 09/25/23 09/25/23 History mcg (1,000 unit) capsule (Vitamin D3) citalopram 40 mg tablet 40 mg PO DAILY 09/25/23 09/25/23 History evolocumab 140 mg/mL subcutaneous 140 mg subcut Q14D 09/25/23 09/25/23 History pen injector (Repatha SureClick) multivitamin 1 tab PO DAILY 09/25/23 09/25/23 History Past Med/Surg History Medical History Diastolic dysfunction Morbid obesity Mood disorder KADE (obstructive sleep apnea) HTN (hypertension) CAD (coronary artery disease) Hyperlipidemia Surgical History S/P CABG x 5 Family History Other Heart disease Social History Smoking Status: Never smoker Second Hand Exposure: No; Do You Dip or Chew Tobacco: No; Tobacco Cessation Education Requested by Patient: No Hx Alcohol Use: Yes Alcohol type: beer Hx Substance Use: No Preferred Language: Nepali Communication Ability: Effective Machine Overhauler Required: No Beliefs That Will Affect Care: None Current Living Situation: Alone Current Living Situation Comment: travels for work Other Information That Helps Us Care for You: No Feels Safe at Home: Yes Safety Concerns: Feels Safe At This Time Assistive Devices: Glasses Review of Systems Review of Systems: At least ten systems reviewed and negative except as noted in the HPI. Physical Exam Physical Exam: General Appearance: WD/WN, vitals as above, NAD, sitting up in bed, conversing without issue, flushed, morbidly obese Head: normocephalic, atraumatic Eyes: normal inspection, PERRL, conjunctivae normal, anicteric sclerae ENT: external ear and nose normal, oropharynx normal Neck: normal visual inspection, trachea midline, no thyromegaly Respiratory: normal respiratory effort, lungs clear to auscultation, no wheeze, rales, rhonchi. No accessory muscle use Cardiovascular: regular rate, rhythm, no murmur, normal peripheral pulses, no BLE edema. Vessels: no JVD Chest: normal inspection of chest Abdomen/GI: normal bowel sounds, soft, nontender, no hepatosplenomegaly Extremities/Musculoskeletal: no cyanosis or clubbing, extremities motor strength 5/5 Neurologic: PERRL, EOMI, accommodation nl, no face palsy, no dysarthria, CN's II-XI intact bilaterally and moves all extremities Psychiatric: A+Ox3, euthymic affect Skin: no rashes, normal color, warm/dry Results & Data Results & Data Vital Signs (Past 12 Hours) Vital Signs Temp Pulse Pulse Resp BP BP Pulse Ox 09/25/23 16:24 74 09/25/23 15:39 16 95 09/25/23 15:39 74 19 149/96 H 94 09/25/23 15:39 95 09/25/23 15:29 36.9 C 82 20 159/98 H 96 O2 Del Method 09/25/23 16:24 09/25/23 15:39 Room Air 09/25/23 15:39 Room Air 09/25/23 15:39 Room Air 09/25/23 15:29 Room Air Laboratory Results Short CBC 09/25/23 Range/Units 15:45 WBC 10.34 (4.8-10.8) K/ul Hgb 16.0 (14.0-18.0) g/dl Hct 46.5 (42.0-52.0) % Plt Count 310 (130-400) K/uL BMP 09/25/23 15:45 Sodium 135 L Potassium 3.6 Chloride 100 Carbon Dioxide 29 BUN 13 Creatinine 0.87 Glucose 96 Calcium 9.2 Liver Function 09/25/23 Range/Units 15:45 Total Bilirubin 0.5 (0.2-1.0) mg/dl AST 27 (13-39) U/L ALT 39 (7-52) U/L Alkaline Phosphatase 46 (34-104) U/L Albumin 4.2 (3.4-5.0) gm/dl Diagnostic Findings Chest X-Ray 09/25/23 15:39 XR chest 1V portable HISTORY: 53 years-old Male Chest pain, nonspecific COMPARISON: 03/28/2021 TECHNIQUE: AP view of the chest FINDINGS: Cardiac silhouette is enlarged. Median sternotomy. Bibasilar opacities. No pneumothorax, pleural effusion or overt pulmonary edema. Bones appear grossly intact. IMPRESSION: 1. Cardiomegaly without acute process of the chest. 2. Mild bibasilar opacities favor atelectasis. ACT 112: Negative or not required by law. The above report was generated using voice recognition software. It may contain grammatical, syntax or spelling errors. Electronically signed by: Jonathan Zapata M.D. 09/25/2023 4:13 PM Code Status & VTE Plan VTE Prophylaxis Plan VTE Prophylaxis will be ordered: Yes Supervising Physician Co-Signing Physician Notes Date of Service: September 25, 2023 Attending addendum: 53-year-old male with past medical history of CAD s/p CABG x 5, morbid obesity, hyperlipidemia not been taking medications, KADE and mild mood disorders apparently has been complaining of chest pain since last night The pain has been about an hour last night and the pain radiated to the neck and jaw and also the elbows Did not have any shortness of breath Noted to have a high troponin in the emergency room without any EKG change He was started with intravenous heparin and was admitted to telemetry unit for continuation of care On examination Lying in bed without any apparent distress Hemodynamically stable with blood pressure on the upper side at 147/107 Chest-decreased breath sound bilaterally with minimal bibasilar crackles Heart-S1, S2, regular Abdomen-distended, soft, nontender, bowel sound present Extremities-trace edema bilaterally His admission labs, medications, EKG and imaging studies reviewed EKG noted to be in sinus rhythm with incomplete right bundle branch block and without any significant ST-T wave changes, troponin elevated to 351 Likely has NSTEMI with history of CAD status post CABG x 5 and hyperlipidemia not been taking any medications Started on intravenous heparin and will be admitted to telemetry unit with serial cardiac enzymes, echo and cardiology consult Agree with assessment and plan as outlined above by Hortencia Saucedo PA-C. Dr John Tran
--- NOTE | 2023-09-25 18:52 | Communication Note ---
Date of Service: September 25, 2023 Attending addendum: 53-year-old male with past medical history of CAD s/p CABG x 5, morbid obesity, hyperlipidemia not been taking medications, KADE and mild mood disorders apparently has been complaining of chest pain since last night The pain has been about an hour last night and the pain radiated to the neck and jaw and also the elbows Did not have any shortness of breath Noted to have a high troponin in the emergency room without any EKG change He was started with intravenous heparin and was admitted to telemetry unit for continuation of care On examination Lying in bed without any apparent distress Hemodynamically stable with blood pressure on the upper side at 147/107 Chest-decreased breath sound bilaterally with minimal bibasilar crackles Heart-S1, S2, regular Abdomen-distended, soft, nontender, bowel sound present Extremities-trace edema bilaterally His admission labs, medications, EKG and imaging studies reviewed EKG noted to be in sinus rhythm with incomplete right bundle branch block and without any significant ST-T wave changes, troponin elevated to 351 Likely has NSTEMI with history of CAD status post CABG x 5 and hyperlipidemia not been taking any medications Started on intravenous heparin and will be admitted to telemetry unit with serial cardiac enzymes, echo and cardiology consult Agree with assessment and plan as outlined above by Hortencia Saucedo PA-C. Dr John Tran
[2023-09-25] MEDS ORDERED: ONDANSETRON INJ 2 MG/ML 2 ML VIAL IV PRN (19:22)
[2023-09-25] MEDS ORDERED: POLYETHYLENE (MIRALAX) 17 GM PACK PO PRN (19:22)
[2023-09-25] MEDS: lisinopril 5 MG TAB PO SCH (20:15)
[2023-09-25] MEDS: ROSUVASTATIN CALCIUM 20 MG TAB PO STA (20:15)
[2023-09-25 23:32] LABS: ANTI-Xa, UFH(UnfractionatedHep 0.25 IU/ml (0.3-0.7)
[2023-09-25] MEDS: ACETAMINOPHEN 325 MG TAB PO PRN (23:46)
[2023-09-26 03:56] LABS: Hematocrit (blood only) 45.6 % (42.0-52.0); Hemoglobin 15.6 g/dl (14.0-18.0); Mean Corpuscular Hemoglobin 29.1 pg (25.0-34.0); Mean Corpuscular Hgb Conc 34.2 g/dL (32.0-36.0); Mean Corpuscular Volume 85.1 fL (80.0-100.0); Mean Platelet Volume 9.9 fL (9.4-12.4); Platelet Count 287 K/uL (130-400); RDW Coefficient of Variation 13.2 % (11.5-14.5); RDW Standard Deviation 40.6 fL (36.4-46.3); Red Blood Count 5.36 M/uL (4.70-6.10); White Blood Count 7.48 K/ul (4.8-10.8)
[2023-09-26 04:07] LABS: Calcium 8.8 mg/dl (8.6-10.3); Chol HDL Ratio 6.5 (0-5); Creatinine Clr Calc Pharmacy 116.1 ml/min; Est GFR (African American) 108.9 ml/min
--- NOTE | 2023-09-26 06:49 | Electrocardiogram Report ---
Test Reason : Blood Pressure : / mmHG Vent. Rate : 080 BPM Atrial Rate : 080 BPM P-R Int : 148 ms QRS Dur : 112 ms QT Int : 408 ms P-R-T Axes : 036 100 063 degrees QTc Int : 470 ms Normal sinus rhythm Incomplete right bundle branch block Abnormal ECG When compared with ECG of 28-MAR-2021 15:27, Criteria for Septal infarct are no longer Present Confirmed by Modesto Schmitt ([id number]) on 09/26/2023 6:49:12 AM Referred By: Confirmed By:Modesto Schmitt
[2023-09-26 07:50] LABS: ANTI-Xa, UFH(UnfractionatedHep 0.34 IU/ml (0.3-0.7)
[2023-09-26] MEDS: CITALOPRAM 40 MG TAB PO SCH (08:57)
[2023-09-26] MEDS: MULTIVITAMIN TAB PO SCH (08:57)
[2023-09-26] MEDS: CHOLECALCIFEROL 25 MCG (1000 UNITS) TAB PO SCH (08:57)
--- NOTE | 2023-09-26 13:25 | Electrocardiogram Report ---
Test Reason : Blood Pressure : / mmHG Vent. Rate : 079 BPM Atrial Rate : 079 BPM P-R Int : 146 ms QRS Dur : 116 ms QT Int : 426 ms P-R-T Axes : 018 115 078 degrees QTc Int : 488 ms Sinus rhythm with Premature supraventricular complexes Incomplete right bundle branch block Septal infarct , age undetermined Abnormal ECG When compared with ECG of 25-SEP-2023 15:38, Premature supraventricular complexes are now Present Criteria for Septal infarct is now Present Confirmed by Guy Farah ([id number]) on 09/26/2023 1:25:03 PM Referred By: REFERRED SELF Confirmed By:Guy Farah
--- NOTE | 2023-09-26 14:26 | Hospitalist Progress Note ---
Date of Service September 26, 2023 Assessment & Plan (1) NSTEMI (non-ST elevated myocardial infarction): (2) CAD (coronary artery disease): (3) HTN (hypertension): (4) Hyperlipidemia: (5) Mood disorder: (6) Morbid obesity: (7) KADE (obstructive sleep apnea): Plan Ms. Chaparro 53-year-old male with PMH of CAD status post CABG x 5 in 2017, morbid obesity, dyslipidemia, prediabetes, KADE, incomplete right bundle branch block, mood disorder and other medical problems listed below who presented on 09/25 for chest pain and admitted for ACS r/o. Patient suspected of NSTEMI and started on IV heparin. Troponin peaked to 389. ECHO with EF 60-65%, GIIDD and no notable wall motion abnormalities. Patient reports stopping Crestor and Repatha, as well as daily aspirin---as he reports "because [he] just did." Patient's lipid panel consistent with reports. #NSTEMI #CAD s.p CABG x5v 2017 Home regimen: Lisinopril 5mg, rosuvastatin 40mg, ASA 81 mg, repatha -Compliant with Lisinopril 5mg -Reports >1 month cessation of ASA and statin, as well as repatha -Troponins peaked, continued Heparin Drip at this time Cardiology on consult -NPO midnight, place for [facility] in am -Nitro prn #HLD Total 274, LDL 186 -Resume high intensity statin -Encourage resumption of OP repatha #Elevated glucose A1C pending #Morbid Obesity BMI 38.2, discussed lifestyle changes #KADE Encourage CPAP #Mood disorder Chronic, stable. 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; discussed that it would be contingent on cath, verbalized understanding Physical Exam Constitutional: WD/WN, vitals as above Respiratory: normal respiratory effort, lungs clear to auscultation Cardiovascular: RRR, no murmur, no edema Gastrointestinal (Abdomen): normal bowel sounds, soft, nontender, no hepatosplenomegaly Musculoskeletal: no cyanosis or clubbing, extremities motor strength 5/5 Results & Data Results & Data Vital Signs (Past 12 Hours) Vital Signs Temp Pulse Resp BP Pulse Ox O2 Del Method 09/26/23 11:46 36.8 C 72 17 121/80 93 Room Air 09/26/23 07:24 36.5 C 78 20 136/80 94 Room Air 09/26/23 04:19 36.6 C 67 16 123/84 95 Room Air Laboratory Results Short CBC 09/25/23 09/26/23 Range/Units 15:45 03:36 WBC 10.34 7.48 (4.8-10.8) K/ul Hgb 16.0 15.6 (14.0-18.0) g/dl Hct 46.5 45.6 (42.0-52.0) % Plt Count 310 287 (130-400) K/uL BMP 09/25/23 09/26/23 15:45 03:36 Sodium 135 L 136 Potassium 3.6 4.0 Chloride 100 101 Carbon Dioxide 29 31 BUN 13 12 Creatinine 0.87 0.92 Glucose 96 109 H Calcium 9.2 8.8 Liver Function 09/25/23 Range/Units 15:45 Total Bilirubin 0.5 (0.2-1.0) mg/dl AST 27 (13-39) U/L ALT 39 (7-52) U/L Alkaline Phosphatase 46 (34-104) U/L Albumin 4.2 (3.4-5.0) gm/dl Medications Administered Home Medications Medication Instructions Recorded Confirmed Last Taken rosuvastatin 40 mg tablet 40 mg PO HS 01/20/20 09/25/23 12/25/22 acetaminophen 500 mg tablet 500 mg PO Q6H PRN Pain 03/28/21 09/25/23 03/28/21 03:00 (Tylenol Extra Strength) 500 mg ibuprofen 200 mg tablet 600 mg PO Q6H PRN Pain 03/28/21 09/25/23 03/28/21 01:00 600 mg lisinopril 5 mg tablet 5 mg PO HS 03/28/21 09/25/23 12/25/22 cholecalciferol (vitamin D3) 25 25 mcg PO DAILY 09/25/23 09/25/23 Unknown mcg (1,000 unit) capsule (Vitamin D3) citalopram 40 mg tablet 40 mg PO DAILY 09/25/23 09/25/23 Unknown evolocumab 140 mg/mL subcutaneous 140 mg subcut Q14D 09/25/23 09/25/23 Unknown pen injector (Mitch Dumas) multivitamin 1 tab PO DAILY 09/25/23 09/25/23 Unknown Active Medications Generic Name Dose Route Start Last Admin Trade Name Freq PRN Reason Stop Dose Admin Acetaminophen 650 mg 09/25/23 19:22 09/25/23 23:46 Acetaminophen 325 Mg Tab PO 10/25/23 19:21 650 mg Q4H PRN Administration Pain or Fever Citalopram Hydrobromide 40 mg 09/26/23 09:00 09/26/23 08:57 Citalopram 40 Mg Tab PO 10/26/23 08:59 40 mg DAILY SHAHID Administration Heparin Sodium/Dextrose 25,000 units in 500 mls @ 34 mls/hr 09/25/23 16:45 09/26/23 06:46 Heparin Sodium/Dextrose IV 10/25/23 16:44 1,700 units/hr .[id number] SHAHID 34 mls/hr Administration Protocol 1,700 UNITS/HR Lisinopril 5 mg 09/25/23 21:00 09/25/23 20:15 Lisinopril 5 Mg Tab PO 10/25/23 20:59 5 mg HS SHAHID Administration Multivitamins 1 tab 09/26/23 09:00 09/26/23 08:57 Multivitamin Tab PO 10/26/23 08:59 1 tab DAILY SHAHID Administration Vitamin D 25 mcg 09/26/23 09:00 09/26/23 08:57 Cholecalciferol 25 Mcg (1000 Units) Tab PO 10/26/23 08:59 25 mcg DAILY SHAHID Administration
--- NOTE | 2023-09-26 15:20 | Cardiology Consultation ---
Date of Consultation September 26, 2023 Assessment & Plan (1) NSTEMI (non-ST elevated myocardial infarction): (2) Chest pain: (3) Dyslipidemia: (4) HTN (hypertension): (5) KADE (obstructive sleep apnea): Plan 53-year-old male with significant premature coronary disease undergone coronary bypass grafting x 5 at age 46 presents now with signs and symptoms consistent with non-ST segment elevation myocardial infarction with stuttering pain of 24 hours duration. Currently symptoms resolved with IV heparin No history of contrast allergies 1. Non-ST segment elevation myocardial infarction: Discussed management with patient will refer for diagnostic coronary angiography in a.m. Assess [place] vessel disease and grafts. N.p.o. after midnight. Aspirin resumed 2. Marked hyperlipidemia: Rosuvastatin restarted. Will need to restart PCSK9 inhibitor. Patient noted disgruntled after change in medication due to insurance preferences 3. Hypertension: Continue lisinopril 4. Obstructive sleep apnea: Faithful with CPAP History of Present Illness Reason for Consultation: Chest pain/non-ST segment elevation myocardial infarction Requesting Physician: Dr. Gonzalez Attending Physician: Martha Gonzalez MD History of Present Illness Patient is a 53-year-old male with ongoing medical and cardiac concerns 1. Premature coronary artery disease status post coronary bypass grafting x 25 January 2017 for multivessel coronary disease with left internal mammary to diagonal to LAD sequential, reverse saphenous vein graft from aorta to posterior descending artery to distal right coronary artery, sequential, and free right internal mammary from the saphenous vein graft [place] to the OM 2, 2. Marked hyperlipidemia/familial hyperlipidemia 3. Right bundle branch block 4. Hypertension 5. Obstructive sleep apnea Patient presents now having developed chest pain day prior to hospitalization. 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 Notes noncompliant with medications including aspirin statin and PCSK9 inhibitor. 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 Symptoms not relieved by aspirin and antacid. Returned home and attempted to sleep but with persistent symptoms ultimately sought ER evaluation. Initial troponin and subsequent follow-ups elevated pain has resolved in hos pital. Anticoagulated with heparin aspirin restarted Allergies Allergy/AdvReac Type Severity Reaction Status Date / Time Microbubbles Allergy Severe Hives Uncoded 01/11/23 10:12 Home Medications Medication Instructions Recorded Confirmed Type rosuvastatin 40 mg tablet 40 mg PO HS 01/20/20 09/25/23 History acetaminophen 500 mg tablet 500 mg PO Q6H PRN Pain 03/28/21 09/25/23 History (Tylenol Extra Strength) ibuprofen 200 mg tablet 600 mg PO Q6H PRN Pain 03/28/21 09/25/23 History lisinopril 5 mg tablet 5 mg PO HS 03/28/21 09/25/23 History cholecalciferol (vitamin D3) 25 25 mcg PO DAILY 09/25/23 09/25/23 History mcg (1,000 unit) capsule (Vitamin D3) citalopram 40 mg tablet 40 mg PO DAILY 09/25/23 09/25/23 History evolocumab 140 mg/mL subcutaneous 140 mg subcut Q14D 09/25/23 09/25/23 History pen injector (Repatha SureClick) multivitamin 1 tab PO DAILY 09/25/23 09/25/23 History Patient History Medical History Diastolic dysfunction Morbid obesity Mood disorder KADE (obstructive sleep apnea) HTN (hypertension) CAD (coronary artery disease) Hyperlipidemia Surgical History S/P CABG x 5 Family History Other Heart disease Social History Smoking Status: Never smoker Second Hand Exposure: No; Do You Dip or Chew Tobacco: No; Tobacco Cessation Education Requested by Patient: No Hx Alcohol Use: Yes Alcohol type: beer Hx Substance Use: No Preferred Language: Greenlandic Communication Ability: Effective Collection Administrator Required: No Beliefs That Will Affect Care: None Current Living Situation: Alone Current Living Situation Comment: travels for work Other Information That Helps Us Care for You: No Feels Safe at Home: Yes Safety Concerns: Feels Safe At This Time Assistive Devices: Glasses Review of Systems Review of Systems: All systems reviewed & are unremarkable except as noted in HPI & below Physical Exam Constitutional: + obese; no acute distress Eyes: PERRL, conjunctivae normal, anicteric sclerae ENMT: external ear and nose normal, oropharynx normal Mallampati Class: III Neck: trachea midline, no thyromegaly Respiratory: Auscultation: + diminished lung sounds; no crackles, no rales and no wheezes Cardiovascular: RRR, no murmur, no edema Vessels: normal carotid upstroke, femoral pulses present and radial pulses present Extremities: + edema Gastrointestinal (Abdomen): normal bowel sounds, soft, nontender, no hepatosplenomegaly Musculoskeletal: no cyanosis or clubbing, extremities motor strength 5/5 Results & Data Vital Signs (Past 12 Hours) Vital Signs Temp Pulse Resp BP Pulse Ox O2 Del Method 09/26/23 15:07 36.4 C L 76 17 113/71 94 Room Air 09/26/23 11:46 36.8 C 72 17 121/80 93 Room Air 09/26/23 07:24 36.5 C 78 20 136/80 94 Room Air 09/26/23 04:19 36.6 C 67 16 123/84 95 Room Air Laboratory Results Laboratory Results - last 24 hr 09/25/23 09/25/23 09/25/23 15:45 17:45 22:46 WBC 10.34 RBC 5.52 Hgb 16.0 Hct 46.5 MCV 84.2 MCH 29.0 MCHC 34.4 RDW Std Deviation 39.9 RDW Coeff of Markie 13.0 Plt Count 310 MPV 9.8 Immature Gran % (Auto) 0.4 Neut % (Auto) 58.4 Lymph % (Auto) 28.9 [place] % (Auto) 10.6 Eos % (Auto) 1.0 Baso % (Auto) 0.7 Neut # (Auto) 6.04 Lymph # (Auto) 2.99 [place]son # (Auto) 1.10 H Eos # (Auto) 0.10 Baso # (Auto) 0.07 Immature Gran # (Auto) 0.04 PT 10.5 INR 1.0 APTT 27 PTT Ratio 1.0 Heparin Anti-Xa, Unfract 0.25 L Sodium 135 L Potassium 3.6 Chloride 100 Carbon Dioxide 29 Anion Gap 6 BUN 13 Creatinine 0.87 Est Cr Clr Drug Dosing 122.7 Est GFR ( Amer) 113.4 Est GFR (Non-Af Amer) 97.8 BUN/Creatinine Ratio 14.9 Glucose 96 Estimat Average Glucose Hemoglobin A1c Calcium 9.2 Total Bilirubin 0.5 AST 27 ALT 39 Alkaline Phosphatase 46 Troponin I High Sens 303.3 H* 351.3 H* 389.0 H* Total Protein 7.2 Albumin 4.2 Globulin 3.0 Albumin/Globulin Ratio 1.4 Triglycerides Cholesterol LDL Cholesterol, Calc VLDL Cholesterol, Calc HDL Cholesterol Cholesterol/HDL Ratio Lipase 24 09/26/23 09/26/23 03:36 06:22 WBC 7.48 RBC 5.36 Hgb 15.6 Hct 45.6 MCV 85.1 MCH 29.1 MCHC 34.2 RDW Std Deviation 40.6 RDW Coeff of Markie 13.2 Plt Count 287 MPV 9.9 Immature Gran % (Auto) Neut % (Auto) Lymph % (Auto) [place] % (Auto) Eos % (Auto) Baso % (Auto) Neut # (Auto) Lymph # (Auto) [place] # (Auto) Eos # (Auto) Baso # (Auto) Immature Gran # (Auto) PT INR APTT PTT Ratio Heparin Anti-Xa, Unfract 0.34 Sodium 136 Potassium 4.0 Chloride 101 Carbon Dioxide 31 Anion Gap 4 BUN 12 Creatinine 0.92 Est Cr Clr Drug Dosing 116.1 Est GFR ( Amer) 108.9 Est GFR (Non-Af Amer) 94.0 BUN/Creatinine Ratio 13.0 Glucose 109 H Estimat Average Glucose Pending Hemoglobin A1c Pending Calcium 8.8 Total Bilirubin AST ALT Alkaline Phosphatase Troponin I High Sens 309.4 H* D Total Protein Albumin Globulin Albumin/Globulin Ratio Triglycerides 228 H Cholesterol 274 H LDL Cholesterol, Calc 186 VLDL Cholesterol, Calc 46 H HDL Cholesterol 42 Cholesterol/HDL Ratio 6.5 H Lipase ECG Additional Comments: 26-SEP-2023 06:29:42 [facility] ROUTINE RETRIEVAL Sinus rhythm with Premature supraventricular complexes Incomplete right bundle branch block Septal infarct , age undetermined Abnormal ECG When compared with ECG of 25-SEP-2023 15:38, Premature supraventricular complexes are now Present Criteria for Septal infarct is now Present (2) Chest pain Chest pain type: unspecified Qualified Code(s): R07.9 - Chest pain, unspecified
[2023-09-26] MEDS: ROSUVASTATIN CALCIUM 20 MG TAB PO SCH (19:46)
[2023-09-27] MEDS: SODIUM CHLORIDE 0.9% 1,000 ML IV SCH (00:52)
[2023-09-27 06:26] LABS: Hematocrit (blood only) 46.4 % (42.0-52.0); Hemoglobin 15.7 g/dl (14.0-18.0); Mean Corpuscular Hemoglobin 28.8 pg (25.0-34.0); Mean Corpuscular Hgb Conc 33.8 g/dL (32.0-36.0); Mean Corpuscular Volume 85.1 fL (80.0-100.0); Mean Platelet Volume 9.9 fL (9.4-12.4); Platelet Count 284 K/uL (130-400); RDW Coefficient of Variation 13.2 % (11.5-14.5); RDW Standard Deviation 41.1 fL (36.4-46.3); Red Blood Count 5.45 M/uL (4.70-6.10); White Blood Count 7.59 K/ul (4.8-10.8)
[2023-09-27 06:37] LABS: BUN Creatinine Ratio 14.1 (10-20); Calcium 8.8 mg/dl (8.6-10.3); Creatinine Clr Calc Pharmacy 125.6 ml/min; Est GFR (African American) 114.5 ml/min; Est GFR (Non-African American) 98.8 ml/min; Magnesium 2.1 mg/dl (1.7-2.4); Phosphorus 3.1 mg/dl (2.5-4.9); Potassium 4.2 mmol/L (3.5-5.1)
[2023-09-27 07:37] LABS: ANTI-Xa, UFH(UnfractionatedHep 0.46 IU/ml (0.3-0.7)
[2023-09-27 07:50] LABS: Estimated Average Glucose 137 mg/dl; Hemoglobin A1C 6.4 % (4.5-5.6)
--- NOTE | 2023-09-27 09:54 | Pre Anesthesia Assessment ---
Date of Service September 27, 2023 Pre Sedation Assessment Vital Signs Temp Pulse Pulse Resp BP Pulse Ox O2 Del Method 09/27/23 10:05 75 16 141/84 H 95 Room Air 09/27/23 07:19 36.5 C 71 18 116/80 92 Room Air 09/27/23 07:19 72 09/27/23 02:58 36.7 C 61 18 108/67 93 CPAP 09/26/23 22:57 36.6 C 60 18 104/64 95 CPAP 09/26/23 21:59 68 09/26/23 19:27 36.6 C 76 20 110/68 94 CPAP 09/26/23 16:00 74 09/26/23 15:07 36.4 C L 76 17 113/71 94 Room Air 09/26/23 11:46 36.8 C 72 17 121/80 93 Room Air Cardiovascular + regular rate and + regular rhythm + S1 normal and + S2 normal; no murmur + femoral pulses present and + radial pulses present no edema Respiratory normal respiratory effort, lungs clear to auscultation Pre-Sedation Airway Assessment Smoking Status: Never smoker Mallampati Class: III ASA: ASA3 NPO Status Date of Last Intake of Fluids: 09/27/23 Date of Last Intake of Solid Food: 09/26/23 Procedure Planning Contraindications for Sedation: none Current Medications Reviewed: Yes Notes The planned sedation has been discussed with the patient. Informed Consent was obtained. I have identified the patient, determined the appropriateness of sedation and have assessed the patient immediately prior to the procedure. All medicine(s) and interventions are by my order.
[2023-09-27] MEDS: ASPIRIN 81 MG CHEW PO ONE (10:53)
[2023-09-27] MEDS: MIDAZOLAM HCL 1 MG/ML 2ML VIAL ONE ×2 (12:14→12:22)
--- NOTE | 2023-09-27 12:16 | Electrocardiogram Report ---
Test Reason : Blood Pressure : / mmHG Vent. Rate : 068 BPM Atrial Rate : 068 BPM P-R Int : 146 ms QRS Dur : 104 ms QT Int : 418 ms P-R-T Axes : 029 083 095 degrees QTc Int : 444 ms Normal sinus rhythm Incomplete right bundle branch block Borderline ECG When compared with ECG of 26-SEP-2023 17:04, Incomplete right bundle branch block has replaced Right bundle branch block Confirmed by Guy Farah ([id number]) on 09/27/2023 12:16:35 PM Referred By: REFERRED SELF Confirmed By:Guy Farah
[2023-09-27] MEDS: HEPARIN (PORCINE) 1000 UNIT/ML 10 ML (CATH LAB USE ONLY) ONE (12:21)
[2023-09-27] MEDS: fentaNYL citrate PF 100 MCG/2 ML VIAL ONE (12:21)
[2023-09-27] MEDS: niCARdipine HCL INJ 2.5 MG/ML 10 ML AMP ONE (12:22)
--- NOTE | 2023-09-27 12:29 | Post Anesthesia Assessment ---
Date of Service September 27, 2023 Post Sedation Assessment Vital Signs Temp Pulse Pulse Pulse Resp BP Pulse Ox 09/27/23 15:56 36.7 C 65 16 125/84 93 09/27/23 15:16 67 09/27/23 14:55 36.8 C 69 16 122/82 94 09/27/23 14:22 36.7 C 67 16 124/85 95 09/27/23 13:57 36.7 C 63 16 120/78 94 09/27/23 13:52 72 09/27/23 13:39 36.5 C 66 16 129/91 94 09/27/23 13:23 36.7 C 70 16 127/90 94 09/27/23 13:09 36.7 C 64 16 124/80 93 09/27/23 12:45 63 18 129/81 95 09/27/23 12:30 64 18 145/90 H 95 09/27/23 10:05 75 16 141/84 H 95 09/27/23 07:19 36.5 C 71 18 116/80 92 09/27/23 07:19 72 09/27/23 02:58 36.7 C 61 18 108/67 93 09/26/23 22:57 36.6 C 60 18 104/64 95 09/26/23 21:59 68 09/26/23 19:27 36.6 C 76 20 110/68 94 O2 Del Method 09/27/23 15:56 Room Air 09/27/23 15:16 09/27/23 14:55 Room Air 09/27/23 14:22 Room Air 09/27/23 13:57 Room Air 09/27/23 13:52 09/27/23 13:39 Room Air 09/27/23 13:23 Room Air 09/27/23 13:09 Room Air 09/27/23 12:45 Room Air 09/27/23 12:30 Room Air 09/27/23 10:05 Room Air 09/27/23 07:19 Room Air 09/27/23 07:19 09/27/23 02:58 CPAP 09/26/23 22:57 CPAP 09/26/23 21:59 09/26/23 19:27 CPAP Recovery Score Activity: Moves 4 extremities Respiration: Deep Breath/Cough Circulation: +/-20% PreAnes Value Consciousness: Fully Awake Discharge Sedation Level of Care: Phase I Post Sedation Plan On clinical assessment, the patient appears to have tolerated the sedation without complications. Patient is recovering as anticipated. Patient will continue to be monitored by nursing and may be discharged when sedation discharge criteria are met per below protocol. Upon Completions of procedure up to 15 minutes continue every 5 minute vital signs and the P.A.R. score; then discharge to a Phase I or Fast Track to Phase II per the following guidelines: * Discharge Patient to appropriate Phase II area if PAR is 8 or greater or return to pre- procedure baseline. The post - procedure orders will be as directed. * If PAR score is less than 8 or not return to pre-procedure baseline then patient will follow Phase I monitoring till PAR is reached for Phase II. The Phase I may be done in procedure room or may call to secure a Phase I area. * If naloxone or flumazenil are used for reversal, hold in Phase I for continued monitoring from when last reversal dose was given for a minimum of 60 minutes or longer pending the nurse and/or physician discretion of patient condition before discharge to Phase II. Please call the Sedation Physician to re-evaluate and complete post-note for discharge to Phase II area. Do NOT discharge from procedure sedation or Phase 1 until post- sedation evaluation note is complete by procedure /sedation MD Sedation Discharge Instructions to be given to the patient at discharge to home.
--- NOTE | 2023-09-27 12:38 | Cardiac Catheterization ---
Cardiac Cath Procedure Full Procedure Date September 27, 2023 Pre-Procedure Diagnosis Pre-Procedure Diagnosis: Non STEMI AUC Score AUC Score: 8 Post-Procedure Diagnosis Post-Procedure Diagnosis: Severe CAD (Severe [place] vessel disease with patent bypass grafts.) Procedure(s) Performed Procedure(s) Performed: Coronary Angiography, Left Heart Cath, Aortography, Bypass Graft Angiography and Femoral Artery Angiography Folder Seamer Automatic Juwan Puckett DO Claims Account Specialist(s) Jimmy CHAIN MAKER HAND Estimated Blood Loss Estimated Blood Loss: 15cc Medication(s) Medication(s): Fentanyl, Lidocaine 1% and Versed Summary of Findings Severe [place] vessel disease with patent HERRING to the LAD, patent SVG to RCA and PDA, patent free SILVIO to OM 2. Hemodynamics Rest Ao:: 118/67/88 Final Ao: 122/66/87 LV: 108/3/23 Recommendations Recommendations: Medical Therapy and/or Counseling Specimens Specimens: None Radiation Exposure (mGy) 3004 Contrast (mls) 130 Fluids (cc crystalloids) Fluids (cc crystalloids): 185 Nss Drains Drains: n/A Anesthesia Moderate sedation. Start 1108. End 1225. Sedation Monitor: EMMETT Russell Procedural Complication(s) None Disposition Recovery Room\PACU I attest to the content of the Intraoperative Record and any orders documented therein. Any exceptions are noted below. ACC Data: [employer] Chief Cardiac Status Clinical evaluation leading to the procedure 53-year-old male presented to the hospital with chest pain and elevated troponin suggestive of NSTEMI. Noncompliant with cardiac medications including aspirin, statin, and PCSK9 inhibitor for approximately 2 months prior to presentation. CAD Presenation: Non STEMI STEMI OR Non-STEMI Symptom Onset Date: 09/24/23 Symptom Onset Time: 09:00 Thrombolytics: No Coronary Anatomy Dominant: Right Left Main (% Stenosis): Normal LAD (% Stenosis): Mid (Severe diffuse disease with stenosis ranging up to 80% throughout the mid segment.) and Distal (Small caliber with moderate diffuse disease distal to HERRING anastomosis) Circumflex (% Stenosis): Ostial (90%), Proximal (90%) and Mid (50% proximal to SILVIO anastomosis) RCA (% Stenosis): Mid (100%) Grafts - LAD (%): Normal (Subselective engagement, anastomosis to distal LAD and diagonal branch vessel) Grafts - Circumflex (%): Normal (Anastomosis to OM 2) Grafts - RCA (%): Normal (Anastomosis to the distal RCA, proximal RPDA) Diagnostic Physicians Name: Juwan Puckett DO Closure Device Percutaneous Entry Location: Femoral Closure Device: Mynx Recommendations: Medical Therapy and/or Counseling Intraprocedure Events Significant Disection: No Perforation: No
[2023-09-27] MEDS: OPTIRAY 350 ONE (14:22)
[2023-09-27] MEDS: BUTALBITAL/ACETAMIN/CAFFEINE TAB PO STA (15:16)
--- NOTE | 2023-09-27 15:40 | Electrocardiogram Report ---
Test Reason : Blood Pressure : / mmHG Vent. Rate : 073 BPM Atrial Rate : 073 BPM P-R Int : 146 ms QRS Dur : 120 ms QT Int : 418 ms P-R-T Axes : 033 074 066 degrees QTc Int : 460 ms Normal sinus rhythm Right bundle branch block Abnormal ECG When compared with ECG of 26-SEP-2023 06:29, Premature supraventricular complexes are no longer Present Criteria for Septal infarct are no longer Present Confirmed by Guy Farah ([id number]) on 09/27/2023 3:39:42 PM Referred By: REFERRED SELF Confirmed By:Guy Farah
--- NOTE | 2023-09-27 15:40 | Hospitalist Progress Note ---
Date of Service September 27, 2023 Assessment & Plan (1) NSTEMI (non-ST elevated myocardial infarction): (2) CAD (coronary artery disease): (3) HTN (hypertension): (4) Hyperlipidemia: (5) Mood disorder: (6) Morbid obesity: (7) KADE (obstructive sleep apnea): Plan Ms. Chaparro 53-year-old male with PMH of CAD status post CABG x 5 in 2017, morbid obesity, dyslipidemia, prediabetes, KADE, incomplete right bundle branch block, mood disorder and other medical problems listed below who presented on 09/25 for chest pain and admitted for ACS r/o. Patient suspected of NSTEMI and started on IV heparin. Troponin peaked to 389. Patient reports stopping Crestor and Repatha, as well as daily aspirin---as he reports "because [he] just did." Patient's lipid panel consistent with reports. NSTEMI CAD s.p CABG x5v 2017 --Reports >1 month cessation of ASA and statin, as well as repatha --S/P Cardiac Cath:Severe [place] vessel disease with patent HERRING to the LAD, patent SVG to RCA and PDA, patent free SILVIO to OM 2. --ECHO: Left ventricle is normal in size. Moderate concentric LVH. Left ventricle wall motion is normal. EF 60 to 60%. Grade 2 diastolic dysfunction. Left atrium is mildly dilated. Hydronephrosis moderate, without significant stenosis --Medication compliance encouraged --Continue aspirin, lisinopril, statin, plan to resume Repatha as able Appreciate cardio input IV heparin discontinued HLD Total 274, LDL 186 Resumed statin Encourage resumption of OP Repatha Prediabetes HbA1c 6.4 Morbid Obesity BMI 38.2 Encourage lifestyle changes KADE Encourage CPAP HS Mood disorder Chronic, stable Continue citalopram DVT Px: IV Heparin--discontinued Code Status Full Code Admission and Anticipated Discharge Date Admission Date: September 25, 2023 Subjective Patient is seen and examined at bedside Had cardiac catheterization earlier today States feeling well post cath Denies any chest pain, dyspnea, dizziness, nausea, vomiting, abdominal pain No other complaints Review of Systems Review of Systems: All systems reviewed & are unremarkable except as noted in Subjective Physical Exam Physical Exam: Physical Exam: Vitals signs as noted above General Appearance:Obese, no apparent distress Head: normocephalic, Atraumatic Eyes: normal inspection, EOMI Neck: supple, Trachea midline Respiratory/Chest: Decreased breath sounds, CTA, No accessory muscle use Cardiovascular: S1, S2, No murmur Abdomen/GI:Soft, Non tender, Bowel sounds present Extremities/Musculoskeletal:normal inspection, Trace edema Neurologic/Psych:AAOX3, grossly no focal neurological deficits Skin: normal color, warm Results & Data Results & Data Vital Signs (Past 12 Hours) Vital Signs Temp Pulse Pulse Pulse Resp BP Pulse Ox 09/27/23 15:16 67 09/27/23 14:55 36.8 C 69 16 122/82 94 09/27/23 13:57 36.7 C 63 16 120/78 94 09/27/23 13:52 72 09/27/23 13:39 36.5 C 66 16 129/91 94 09/27/23 13:23 36.7 C 70 16 127/90 94 09/27/23 13:09 36.7 C 64 16 124/80 93 09/27/23 12:45 63 18 129/81 95 09/27/23 12:30 64 18 145/90 H 95 09/27/23 10:05 75 16 141/84 H 95 09/27/23 07:19 36.5 C 71 18 116/80 92 09/27/23 07:19 72 O2 Del Method 09/27/23 15:16 09/27/23 14:55 Room Air 09/27/23 13:57 Room Air 09/27/23 13:52 09/27/23 13:39 Room Air 09/27/23 13:23 Room Air 09/27/23 13:09 Room Air 09/27/23 12:45 Room Air 09/27/23 12:30 Room Air 09/27/23 10:05 Room Air 09/27/23 07:19 Room Air 09/27/23 07:19 Laboratory Results Short CBC 09/27/23 Range/Units 05:47 WBC 7.59 (4.8-10.8) K/ul Hgb 15.7 (14.0-18.0) g/dl Hct 46.4 (42.0-52.0) % Plt Count 284 (130-400) K/uL BMP 09/27/23 05:47 Sodium 137 Potassium 4.2 Chloride 102 Carbon Dioxide 31 BUN 12 Creatinine 0.85 Glucose 105 H Calcium 8.8
--- NOTE | 2023-09-27 16:23 | Cardiology Progress Note ---
Date of Service September 27, 2023 Assessment & Plan (1) NSTEMI (non-ST elevated myocardial infarction): (2) Dyslipidemia: (3) HTN (hypertension): (4) KADE (obstructive sleep apnea): Plan 53-year-old male with significant premature coronary disease undergone coronary bypass grafting x 5 at age 46 presented to hospital with NSTEMI. Left heart catheterization with coronary angiography and bypass graft angiography performed by the undersigned earlier today. 5 of 5 bypass grafts found to be patent. Severe [place] vessel disease noted. Results discussed with patient and his fiance at length. Recommend medical management. Add low-dose beta-patricia therapy, metoprolol tartrate 12.5 mg twice daily. Continue aspirin, rosuvastatin, and lisinopril. Add clopidogrel 75 mg daily for minimum of 12 months post NSTEMI. Resume PCSK9 inhibitor in outpatient setting. All questions answered to satisfaction both the patient and his fiance. Postcardiac catheterization activity restrictions listed below. Consider discharge in a.m. ACTIVITY RECOMMENDATIONS: It is common to feel weak and fatigue for a few days. * Do not drive or operate any motorized equipment for the next three days. * Limit stair usage (2 or 3 trips a day only) for the next three days. * Do not lift anything heavier than 10 pounds for the next three days. * Do not engage in vigorous exercise or any sports for the next five days. * You may shower the day after your procedure, but do not immerse the area for three days. Cleanse the site gently with soap and water. SPECIAL CARE INSTRUCTIONS: * You may replace the pressure dressing or band-aid the morning after the procedure. * After your procedure, it is normal to have a small bruise or small lump at the site. Examine your site daily for any change in the bruise or lump, redness, swelling, drainage or numbness. Notify your doctor if any change. BLEEDING: * If there is a small amount of bleeding at the site, lie down and apply firm pressure with a clean cloth for ten minutes. When the bleeding stops, lie quietly keeping the procedure limb straight for six hours. Notify your doctor as soon as possible. * If the bleeding does not stop after ten minutes or if there is a large amount of bleeding or spurting, call 911 immediately. Continue to lie down and hold firm pressure until help arrives. SKIN IRRITATION: * You may experience some redness and/or swelling in the area where radiation was administered. If any skin irritation occurs, please contact your family physician. Admission and Anticipated Discharge Date Admission Date: September 25, 2023 Subjective Patient seen and examined at the bedside postcardiac catheterization. Nursing voiced concern regarding patient's right lower extremity. Patient denies any discomfort, no groin ecchymosis or hematoma. Denies chest discomfort. Fianc at bedside. Offers no additional concerns/complaints. Patient tolerated procedure well. Review of Systems Review of Systems: All systems reviewed & are unremarkable except as noted in Subjective Physical Exam Constitutional: well nourished; no acute distress Respiratory: normal respiratory effort, lungs clear to auscultation Cardiovascular: Rate/Rhythm: regular rate and regular rhythm Heart Sounds: normal S1 and normal S2; no murmur Vessels: femoral pulses present and radial pulses present Extremities: no edema Gastrointestinal (Abdomen): Inspection/Auscultation: normal bowel sounds; abdomen not distended Percussion/Palpation: abdomen nontender, no guarding, abdomen not rigid and + abdomen not soft Neurologic: CN's II-XI intact bilaterally and moves all extremities; no focal motor deficits Results & Data Vital Signs (Past 12 Hours) Vital Signs Temp Pulse Pulse Pulse Resp BP Pulse Ox 09/27/23 15:56 36.7 C 65 16 125/84 93 09/27/23 15:16 67 09/27/23 14:55 36.8 C 69 16 122/82 94 09/27/23 14:22 36.7 C 67 16 124/85 95 09/27/23 13:57 36.7 C 63 16 120/78 94 09/27/23 13:52 72 09/27/23 13:39 36.5 C 66 16 129/91 94 09/27/23 13:23 36.7 C 70 16 127/90 94 09/27/23 13:09 36.7 C 64 16 124/80 93 09/27/23 12:45 63 18 129/81 95 09/27/23 12:30 64 18 145/90 H 95 09/27/23 10:05 75 16 141/84 H 95 09/27/23 07:19 36.5 C 71 18 116/80 92 09/27/23 07:19 72 O2 Del Method 09/27/23 15:56 Room Air 09/27/23 15:16 09/27/23 14:55 Room Air 09/27/23 14:22 Room Air 09/27/23 13:57 Room Air 09/27/23 13:52 09/27/23 13:39 Room Air 09/27/23 13:23 Room Air 09/27/23 13:09 Room Air 09/27/23 12:45 Room Air 09/27/23 12:30 Room Air 09/27/23 10:05 Room Air 09/27/23 07:19 Room Air 09/27/23 07:19 Laboratory Results CBC 09/27/23 Range/Units 05:47 WBC 7.59 (4.8-10.8) K/ul RBC 5.45 (4.70-6.10) M/uL Hgb 15.7 (14.0-18.0) g/dl Hct 46.4 (42.0-52.0) % Plt Count 284 (130-400) K/uL Comprehensive Metabolic Panel 09/27/23 Range/Units 05:47 Sodium 137 (136-145) mmol/L Potassium 4.2 (3.5-5.1) mmol/L Chloride 102 (98-107) mmol/L Carbon Dioxide 31 (21-32) mmol/L BUN 12 (6-23) mg/dl Creatinine 0.85 (0.6-1.4) mg/dl Glucose 105 H (70-99(Fasting)) mg/dl Calcium 8.8 (8.6-10.3) mg/dl Intake and Output 09/27/23 09/27/23 09/27/23 06:59 14:59 22:59 Intake Total 472.033 / 472.033 Output Total 475 / 475 Balance -2.967 / -2.967 Intake: IV 472.033 / 472.033 Heparin Sodium/Dextrose 25,000 472.033 / 472.033 units In 500 ml @ 1,700 UNITS/ HR 34 mls/hr IV .[id number] [facility] Rx #:[id number] Output: Urine 475 / 475 Other: Other Intake Source npo # Unmeasured Voids 1 Weight Measurement Method Patient Lift Scale (3) HTN (hypertension) Hypertension type: primary hypertension Qualified Code(s): I10 - Essential (primary) hypertension
[2023-09-27] MEDS: CLOPIDOGREL BISULFATE 300 MG TAB PO STA (17:46)
[2023-09-27] MEDS: METOPROLOL TARTRATE 25 MG TAB PO SCH (19:50)
[2023-09-28 06:38] LABS: Hematocrit (blood only) 46.3 % (42.0-52.0); Hemoglobin 15.9 g/dl (14.0-18.0); Mean Corpuscular Hemoglobin 28.9 pg (25.0-34.0); Mean Corpuscular Hgb Conc 34.3 g/dL (32.0-36.0); Mean Platelet Volume 9.8 fL (9.4-12.4); Platelet Count 286 K/uL (130-400); RDW Coefficient of Variation 13.2 % (11.5-14.5); RDW Standard Deviation 40.5 fL (36.4-46.3); Red Blood Count 5.51 M/uL (4.70-6.10); White Blood Count 10.12 K/ul (4.8-10.8)
[2023-09-28 06:59] LABS: BUN Creatinine Ratio 12.4 (10-20); Calcium 8.9 mg/dl (8.6-10.3); Creatinine Clr Calc Pharmacy 119.9 ml/min; Est GFR (African American) 112.3 ml/min; Est GFR (Non-African American) 96.9 ml/min; Potassium 4.2 mmol/L (3.5-5.1)
[2023-09-28] MEDS: CLOPIDOGREL BISULFATE 75 MG TAB PO SCH (07:34)
[2023-09-28] MEDS: ASPIRIN 81 MG CHEW PO SCH (07:35)
[2023-09-28] MEDS: NITROGLYCERIN SL 0.4 MG/TAB TAB ONE (08:46)
[2023-09-28] MEDS ORDERED: NITROGLYCERIN SL 0.4 MG/TAB TAB SL STA (08:47)
[2023-09-28] MEDS ORDERED: NITROGLYCERIN SL 0.4 MG/TAB TAB SL PRN (08:47)
[2023-09-28] MEDS: BUTALBITAL/ACETAMIN/CAFFEINE TAB PO STA (09:32)
--- NOTE | 2023-09-28 10:05 | Cardiology Progress Note ---
Date of Service September 28, 2023 Assessment & Plan (1) NSTEMI (non-ST elevated myocardial infarction): (2) Dyslipidemia: (3) HTN (hypertension): (4) KADE (obstructive sleep apnea): Plan 53-year-old male with significant premature coronary disease undergone coronary bypass grafting x 5 at age 46 presented to hospital with NSTEMI. Left heart catheterization with coronary angiography and bypass graft angiography performed 09/27/2023. 5 of 5 bypass grafts patent. Severe [place] vessel disease noted. Recurrent chest discomfort noted this a.m. No acute ECG changes or dysrhythmia on telemetry. Symptoms improved with sublingual nitroglycerin, however, poorly tolerated due to headache. Recommend continue beta-patricia therapy with addition of clopidogrel. Other cardiovascular medications including rosuvastatin, and lisinopril will be continued as ordered. Resume PCSK9 inhibitor at discharge. Consider titration of beta-patricia as heart rate allows and/or addition of Ranexa pending ongoing assessment. Continue inpatient observation at this time. Admission and Anticipated Discharge Date Admission Date: September 25, 2023 Subjective Patient seen and examined at the bedside. Complains of left-sided chest ache this morning. Reports similar episodes of discomfort dating back several years since time of his bypass surgery. This morning describes discomfort as 3/10 with slight radiation to his left upper arm. No shortness of breath or diaphoresis. Stat ECG performed at bedside demonstrates no acute changes. He was given 1 sublingual nitroglycerin with mild relief, however, significant worsening of baseline headache reported. Notes significant headache since yesterday in the afternoon. Treated with both Tylenol and Fioricet. New medications added yesterday including beta-patricia and clopidogrel. No significant bradycardia overnight. Review of Systems Review of Systems: All systems reviewed & are unremarkable except as noted in Subjective Physical Exam Constitutional: well nourished; no acute distress ENMT: Mallampati Class: III Respiratory: normal respiratory effort, lungs clear to auscultation Cardiovascular: Rate/Rhythm: regular rate and regular rhythm Heart Sounds: normal S1 and normal S2; no murmur Vessels: femoral pulses present and radial pulses present Extremities: no edema Gastrointestinal (Abdomen): Inspection/Auscultation: normal bowel sounds; abdomen not distended Percussion/Palpation: abdomen nontender, no guarding, abdomen not rigid and + abdomen not soft Neurologic: CN's II-XI intact bilaterally and moves all extremities; no focal motor deficits Results & Data Vital Signs (Past 12 Hours) Vital Signs Temp Pulse Pulse Resp BP BP Pulse Ox 09/28/23 08:47 36.6 C 68 16 146/95 H 96 09/28/23 07:35 72 09/28/23 07:30 36.8 C 73 18 135/74 94 09/28/23 02:52 36.7 C 67 18 116/71 94 09/27/23 23:43 57 L 09/27/23 22:37 36.8 C 62 18 111/69 95 O2 Del Method 09/28/23 08:47 Room Air 09/28/23 07:35 09/28/23 07:30 Room Air 09/28/23 02:52 Room Air 09/27/23 23:43 09/27/23 22:37 Nasal CPAP Laboratory Results CBC 09/28/23 Range/Units 05:59 WBC 10.12 (4.8-10.8) K/ul RBC 5.51 (4.70-6.10) M/uL Hgb 15.9 (14.0-18.0) g/dl Hct 46.3 (42.0-52.0) % Plt Count 286 (130-400) K/uL Comprehensive Metabolic Panel 09/28/23 Range/Units 05:59 Sodium 134 L (136-145) mmol/L Potassium 4.2 (3.5-5.1) mmol/L Chloride 101 (98-107) mmol/L Carbon Dioxide 28 (21-32) mmol/L BUN 11 (6-23) mg/dl Creatinine 0.89 (0.6-1.4) mg/dl Glucose 100 H (70-99(Fasting)) mg/dl Calcium 8.9 (8.6-10.3) mg/dl Intake and Output 09/27/23 09/28/23 09/28/23 22:59 06:59 14:59 Intake Total 1200 / 1822.033 150 / 0172.828 9238.967 / 1147.967 Output Total 1000 / 2625 1150 / 2625 300 / 300 Balance 200 / -802.967 -1000 / -802.967 847.967 / 847.967 Intake: IV 1000 / 8887.576 4037.967 / 1027.967 Heparin Sodium/Dextrose 25,000 27.967 / 27.967 units In 500 ml @ 1,700 UNITS/ HR 34 mls/hr IV .[id number] [facility] Rx #:[id number] Sodium Chloride 0.9% 1,000 ml @ 1000 / 1000 1000 / 1000 59 mls/hr IV .[id number] [facility] Rx#: [id number] Oral 200 / 350 150 / 350 120 / 120 Output: Urine 1000 / 2625 1150 / 2625 300 / 300 Other: Weight 117.3 kg (3) HTN (hypertension) Hypertension type: primary hypertension Qualified Code(s): I10 - Essential (primary) hypertension
--- NOTE | 2023-09-28 14:25 | Electrocardiogram Report ---
Test Reason : Blood Pressure : / mmHG Vent. Rate : 063 BPM Atrial Rate : 063 BPM P-R Int : 156 ms QRS Dur : 114 ms QT Int : 408 ms P-R-T Axes : 029 080 068 degrees QTc Int : 417 ms Normal sinus rhythm Incomplete right bundle branch block Borderline ECG When compared with ECG of 27-SEP-2023 05:56, No significant change was found Confirmed by Guy Farah ([id number]) on 09/28/2023 2:25:35 PM Referred By: REFERRED SELF Confirmed By:Guy Farah
--- NOTE | 2023-09-28 17:57 | Hospitalist Progress Note ---
Date of Service September 28, 2023 Assessment & Plan (1) NSTEMI (non-ST elevated myocardial infarction): (2) CAD (coronary artery disease): (3) HTN (hypertension): (4) Hyperlipidemia: (5) Mood disorder: (6) Morbid obesity: (7) KADE (obstructive sleep apnea): Plan Ms. Chaparro 53-year-old male with PMH of CAD status post CABG x 5 in 2017, morbid obesity, dyslipidemia, prediabetes, KADE, incomplete right bundle branch block, mood disorder and other medical problems listed below who presented on 09/25 for chest pain and admitted for ACS r/o. Patient suspected of NSTEMI and started on IV heparin. Troponin peaked to 389. Patient reports stopping Crestor and Repatha, as well as daily aspirin---as he reports "because [he] just did." Patient's lipid panel consistent with reports. NSTEMI CAD s.p CABG x5v 2017 --Reports >1 month cessation of ASA and statin, as well as repatha --S/P Cardiac Cath:Severe [place] vessel disease with patent HERRING to the LAD, patent SVG to RCA and PDA, patent free SILVIO to OM 2. --ECHO: Left ventricle is normal in size. Moderate concentric LVH. Left ventricle wall motion is normal. EF 60 to 60%. Grade 2 diastolic dysfunction. Left atrium is mildly dilated. Hydronephrosis moderate, without significant stenosis --Continue aspirin, lisinopril, statin, plan to resume Repatha as able Appreciate cardio input IV heparin discontinued Recurrent chest pain resolved with nitroglycerin Added Plavix, metoprolol 12.5 mg twice a day Uptitration of beta-patricia as needed Counseled on medication compliance HLD Total 274, LDL 186 Resumed statin Encourage resumption of OP Repatha Prediabetes HbA1c 6.4 Morbid Obesity BMI 38.2 Encourage lifestyle changes KADE Encourage CPAP HS Mood disorder Chronic, stable Continue citalopram DVT Px: Heparin SQ Code Status Full Code Admission and Anticipated Discharge Date Admission Date: September 25, 2023 Subjective Patient is seen and examined at bedside Patient has transient left-sided chest pain associated with nausea this morning Resolved after having nitroglycerin during my encounter Reports having mild headache Denies any dyspnea, dizziness, vomiting, abdominal pain Saturating well on room air Review of Systems Review of Systems: All systems reviewed & are unremarkable except as noted in Subjective Physical Exam Physical Exam: Physical Exam: Vitals signs as noted above General Appearance:Obese, no apparent distress Head: normocephalic, Atraumatic Eyes: normal inspection, EOMI Neck: supple, Trachea midline Respiratory/Chest: Decreased breath sounds, CTA, No accessory muscle use Cardiovascular: S1, S2, No murmur Abdomen/GI:Soft, Non tender, Bowel sounds present Extremities/Musculoskeletal:normal inspection, Trace edema Neurologic/Psych:AAOX3, grossly no focal neurological deficits Skin: normal color, warm Results & Data Results & Data Vital Signs (Past 12 Hours) Vital Signs Temp Pulse Pulse Resp BP BP Pulse Ox 09/28/23 15:06 36.3 C L 73 18 121/76 95 09/28/23 15:00 85 09/28/23 11:28 36.7 C 61 16 119/69 95 09/28/23 08:47 36.6 C 68 16 146/95 H 96 09/28/23 07:35 72 09/28/23 07:30 36.8 C 73 18 135/74 94 O2 Del Method 09/28/23 15:06 Room Air 09/28/23 15:00 09/28/23 11:28 Room Air 09/28/23 08:47 Room Air 09/28/23 07:35 09/28/23 07:30 Room Air Laboratory Results Short CBC 09/28/23 Range/Units 05:59 WBC 10.12 (4.8-10.8) K/ul Hgb 15.9 (14.0-18.0) g/dl Hct 46.3 (42.0-52.0) % Plt Count 286 (130-400) K/uL BMP 09/28/23 05:59 Sodium 134 L Potassium 4.2 Chloride 101 Carbon Dioxide 28 BUN 11 Creatinine 0.89 Glucose 100 H Calcium 8.9 (3) HTN (hypertension) Hypertension type: primary hypertension Qualified Code(s): I10 - Essential (primary) hypertension
[2023-09-28] MEDS: HEPARIN SOD 5,000 UNIT/0.5 ML VIAL SQ SCH (19:34)
--- NOTE | 2023-09-29 09:03 | Cardiology Progress Note ---
Date of Service September 29, 2023 Assessment & Plan (1) NSTEMI (non-ST elevated myocardial infarction): (2) Dyslipidemia: (3) HTN (hypertension): (4) KADE (obstructive sleep apnea): Plan 53-year-old male with history of premature coronary heart disease s/p coronary bypass grafting x 5 at age 46 presented to hospital with NSTEMI. Left heart catheterization with coronary angiography and bypass graft angiography performed 09/27/2023. 5 of 5 bypass grafts patent. Severe [place] vessel disease noted. Cardiac catheterization films had been reviewed with interventional cardiology with consensus recommendation for ongoing medical management. 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 Patient without chest pain at present. Able to ambulate in hallway last evening and again this morning without symptoms. Tolerated the addition of low dose metoprolol tartrate 12.5 mg BID this admission. Will transition to metoprolol succinate 25 mg daily, first dose this am. Continue aspirin EC 81 mg daily (lifelong therapy). Continue clopidogrel given NSTEMI x 1 year. Continue lisinopril 5 mg daily rosuvastatin 40 mg daily. Resume prior treatment with Repatha at discharge, LDL was 186 mg /dl on presentation with historical lipid panels consistent with familial hyperlipidemia.Will arrange follow up with cardiology [facility] clinic as outpatient. PRN SL nitroglycerin. As present patient stable from cardiac perspective for discharge. Admission and Anticipated Discharge Date Admission Date: September 25, 2023 Subjective Mr Chaparro is seen in cardiology follow up. Denies additional chest pain overnight or thus far this am. He has walked in the hallway without any recurrent symptoms. Notes intermitted headache since the cardiac catheterization that is at the cr own of his heat, but not bothering him at present. Telemetry reveals SR in the 60-70s. Review of Systems Review of Systems: All systems reviewed & are unremarkable except as noted in HPI & below Physical Exam Constitutional: well nourished and + obese; no acute distress Eyes: PERRL, conjunctivae normal, anicteric sclerae Respiratory: normal respiratory effort, lungs clear to auscultation Auscultation: + diminished lung sounds; no crackles, no rales and no wheezes Cardiovascular: RRR, no murmur, no edema Rate/Rhythm: regular rate and regular rhythm Heart Sounds: normal S1 and normal S2; no murmur Vessels: normal carotid upstroke, femoral pulses present and radial pulses present Extremities: no edema Right groin at catheterization access site, is clean dry and intact. Gastrointestinal (Abdomen): normal bowel sounds, soft, nontender, no hepatosplenomegaly Inspection/Auscultation: normal bowel sounds; abdomen not distended Percussion/Palpation: abdomen nontender, no guarding, abdomen not rigid and + abdomen not soft Musculoskeletal: no cyanosis or clubbing, extremities motor strength 5/5 Neurologic: CN's II-XI intact bilaterally and moves all extremities; no focal motor deficits Results & Data Vital Signs (Past 12 Hours) Vital Signs Temp Pulse Resp BP Pulse Ox O2 Del Method 09/29/23 08:30 Room Air 09/29/23 07:54 36.8 C 64 16 131/91 97 Room Air 09/29/23 03:15 36.7 C 79 19 90/67 L 99 Room Air 09/28/23 22:42 36.7 C 60 18 105/67 96 Room Air Laboratory Results Intake and Output 09/28/23 09/29/23 09/29/23 22:59 06:59 14:59 Intake Total 300 / 2377.967 250 / 2377.967 Balance 300 / 2076.967 250 / 2076.967 Intake: Oral 300 / 1350 250 / 1350 Other: Weight 117 kg Diagnostic Findings EKG performed 09/28/2023 8030 8 AM and interpret independently: Sinus rhythm at 63 bpm with incomplete right bundle branch block. No significant repolarization abnormalities. Unchanged compared to 09/27/2023. Echocardiogram performed 09/26/2023: Moderate concentric left ventricular hypertrophy, normal LV wall motion, LVEF in the range of 60-65%, grade 2 diastolic dysfunction, mild left atrial enlargement, moderate aortic valve sclerosis without stenosis (3) HTN (hypertension) Hypertension type: primary hypertension Qualified Code(s): I10 - Essential (primary) hypertension
[2023-09-29] MEDS: METOPROLOL SUCC 25MG EXT REL TAB PO SCH (10:01)
--- NOTE | 2023-09-29 12:48 | Hospitalist Progress Note ---
Date of Service September 29, 2023 Assessment & Plan (1) NSTEMI (non-ST elevated myocardial infarction): (2) CAD (coronary artery disease): (3) HTN (hypertension): (4) Hyperlipidemia: (5) Mood disorder: (6) Morbid obesity: (7) KADE (obstructive sleep apnea): Plan Ms. Chaparro 53-year-old male with PMH of CAD status post CABG x 5 in 2017, morbid obesity, dyslipidemia, prediabetes, KADE, incomplete right bundle branch block, mood disorder and other medical problems listed below who presented on 09/25 for chest pain and admitted for ACS r/o. Patient suspected of NSTEMI and started on IV heparin. Troponin peaked to 389. Patient reports stopping Crestor and Repatha, as well as daily aspirin---as he reports "because [he] just did." Patient's lipid panel consistent with reports. NSTEMI CAD s.p CABG x5v 2017 --Reports >1 month cessation of ASA and statin, as well as repatha --S/P Cardiac Cath:Severe [place] vessel disease with patent HERRING to the LAD, patent SVG to RCA and PDA, patent free SILVIO to OM 2. --ECHO: Left ventricle is normal in size. Moderate concentric LVH. Left ventricle wall motion is normal. EF 60 to 60%. Grade 2 diastolic dysfunction. Left atrium is mildly dilated. Hydronephrosis moderate, without significant stenosis --Continue aspirin, lisinopril, statin, plan to resume Repatha as able Appreciate cardio input IV heparin discontinued Recurrent chest pain resolved with nitroglycerin Added Plavix 75 mg daily Counseled on medication compliance--agrees to take them regularly Metoprolol titrate changed to succinate 25 mg daily Will discharge on as needed nitroglycerin Needs follow-up with cardiology on discharge HLD Total 274, LDL 186 Resumed statin Encourage resumption of OP Repatha Prediabetes HbA1c 6.4 Morbid Obesity BMI 38.2 Encourage lifestyle changes KADE Encourage CPAP HS Mood disorder Chronic, stable Continue citalopram DVT Px: Heparin SQ Code Status Full Code Admission and Anticipated Discharge Date Admission Date: September 25, 2023 Subjective Patient is seen and examined at bedside States feeling well today No recurrence of chest pain, dyspnea, dizziness, nausea, vomiting, abdominal pain Ambulated in the hallways with no issues Saturating well on room air Review of Systems Review of Systems: All systems reviewed & are unremarkable except as noted in Subjective Physical Exam Physical Exam: Physical Exam: Vitals signs as noted above General Appearance:Obese, no apparent distress Head: normocephalic, Atraumatic Eyes: normal inspection, EOMI Neck: supple, Trachea midline Respiratory/Chest: Decreased breath sounds, CTA, No accessory muscle use Cardiovascular: S1, S2, No murmur Abdomen/GI:Soft, Non tender, Bowel sounds present Extremities/Musculoskeletal:normal inspection, Trace edema Neurologic/Psych:AAOX3, grossly no focal neurological deficits Skin: normal color, warm Results & Data Results & Data Vital Signs (Past 12 Hours) Vital Signs Temp Pulse Pulse Pulse Resp BP BP 09/29/23 11:41 36.9 C 70 68 16 121/78 119/69 09/29/23 11:20 36.9 C 68 16 121/78 09/29/23 09:59 66 126/76 09/29/23 08:30 09/29/23 07:54 36.8 C 64 16 131/91 09/29/23 07:00 73 09/29/23 03:15 36.7 C 79 19 90/67 L Pulse Ox O2 Del Method 09/29/23 11:41 93 09/29/23 11:20 93 Room Air 09/29/23 09:59 09/29/23 08:30 Room Air 09/29/23 07:54 97 Room Air 09/29/23 07:00 09/29/23 03:15 99 Room Air (3) HTN (hypertension) Hypertension type: primary hypertension Qualified Code(s): I10 - Essential (primary) hypertension
--- NOTE | 2023-09-29 13:08 | Discharge Summary ---
Date of Service September 29, 2023 Admission HPI Per Admitting Provider This is a 53-year-old male with PMH of CAD status post CABG x 5 in 2017, morbid obesity, dyslipidemia, prediabetes, KADE, incomplete right bundle branch block, mood disorder and other medical problems listed below who presents with ongoing chest pain since yesterday. 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 [place] like acid reflux and took some Tums as well as to aspirin with some relief. Also notes heaviness and tingling feeling in bilateral arms as he continued to drive home, where he arrived around 9 this morning. Noted that his blood pressure was elevated higher than usual. Went to sleep for few hours and when he woke up, still had dull aching discomfort in left chest wall and fianc urged him to come to ED for further evaluation. Since arrival, patient received 324 mg of aspirin. At time of evaluation, no longer experiencing chest pain. Denies any palpitations, diaphoresis, shortness of breath, nausea or vomiting. Stopped taking Repatha right before Jeevan as he found the injections to be painful and irritating. Also stopped taking rosuvastatin around that time. No longer taking baby aspirin either. Patient is a non-smoker, drinks occasionally. Admission Exam Per Admitting Provider General Appearance: WD/WN, vitals as above, NAD, sitting up in bed, conversing without issue, flushed, morbidly obese Head: normocephalic, atraumatic Eyes: normal inspection, PERRL, conjunctivae normal, anicteric sclerae ENT: external ear and nose normal, oropharynx normal Neck: normal visual inspection, trachea midline, no thyromegaly Respiratory: normal respiratory effort, lungs clear to auscultation, no wheeze, rales, rhonchi. No accessory muscle use Cardiovascular: regular rate, rhythm, no murmur, normal peripheral pulses, no BLE edema. Vessels: no JVD Chest: normal inspection of chest Abdomen/GI: normal bowel sounds, soft, nontender, no hepatosplenomegaly Extremities/Musculoskeletal: no cyanosis or clubbing, extremities motor str ength 5/5 Neurologic: PERRL, EOMI, accommodation nl, no face palsy, no dysarthria, CN's II-XI intact bilaterally and moves all extremities Psychiatric: A+Ox3, euthymic affect Skin: no rashes, normal color, warm/dry Principal Diagnosis Non-ST elevated myocardial infarction Severe coronary artery disease Prediabetes Hyperlipidemia Discharge Data Allergies Allergy/AdvReac Type Severity Reaction Status Date / Time Microbubbles Allergy Severe Hives Uncoded 01/11/23 10:12 Consultations 09/25/23 17:02 ED Decision to Admit Stat 09/25/23 17:03 Consult Cardiology Routine Procedures Performed Operation Date: 09/27/23 10:00 Actual Procedures p Cineradiography w/Routine Exam - Juwan Puckett DO p Cath, Left w/Cors Vent Grafts - Juwan Puckett DO s Angiogram Thoracic Aorta - Juwan Puckett DO Ordered Studies 09/27/23 09:59 CL Cath Imgs for PACS use only Routine Laboratory Results WBC 10.12 K/ul (4.8-10.8) 09/28/23 05:59 RBC 5.51 M/uL (4.70-6.10) 09/28/23 05:59 Hgb 15.9 g/dl (14.0-18.0) 09/28/23 05:59 Hct 46.3 % (42.0-52.0) 09/28/23 05:59 MCV 84.0 fL (80.0-100.0) 09/28/23 05:59 MCH 28.9 pg (25.0-34.0) 09/28/23 05:59 MCHC 34.3 g/dL (32.0-36.0) 09/28/23 05:59 RDW Std Deviation 40.5 fL (36.4-46.3) 09/28/23 05:59 RDW Coeff of Markie 13.2 % (11.5-14.5) 09/28/23 05:59 Plt Count 286 K/uL (130-400) 09/28/23 05:59 MPV 9.8 fL (9.4-12.4) 09/28/23 05:59 Immature Gran % (Auto) 0.4 % 09/25/23 15:45 Neut % (Auto) 58.4 % 09/25/23 15:45 Lymph % (Auto) 28.9 % 09/25/23 15:45 [place] % (Auto) 10.6 % 09/25/23 15:45 Eos % (Auto) 1.0 % 09/25/23 15:45 Baso % (Auto) 0.7 % 09/25/23 15:45 Neut # (Auto) 6.04 K/uL (1.40-6.50) 09/25/23 15:45 Lymph # (Auto) 2.99 K/uL (1.20-3.40) 09/25/23 15:45 [place] # (Auto) 1.10 K/uL (0.11-0.59) H 09/25/23 15:45 Eos # (Auto) 0.10 K/uL (0.00-0.50) 09/25/23 15:45 Baso # (Auto) 0.07 K/uL (0.00-0.20) 09/25/23 15:45 Immature Gran # (Auto) 0.04 K/uL (0.01-0.20) 09/25/23 15:45 PT 10.5 Seconds (9.0-12.0) 09/25/23 15:45 INR 1.0 (0.9-1.1) 09/25/23 15:45 APTT 27 Seconds (21-31) 09/25/23 15:45 PTT Ratio 1.0 09/25/23 15:45 Heparin Anti-Xa, Unfract 0.46 IU/ml (0.3-0.7) 09/27/23 05:47 Sodium 134 mmol/L (136-145) L 09/28/23 05:59 Potassium 4.2 mmol/L (3.5-5.1) 09/28/23 05:59 Chloride 101 mmol/L (98-107) 09/28/23 05:59 Carbon Dioxide 28 mmol/L (21-32) 09/28/23 05:59 Anion Gap 5 (3-11) 09/28/23 05:59 BUN 11 mg/dl (6-23) 09/28/23 05:59 Creatinine 0.89 mg/dl (0.6-1.4) 09/28/23 05:59 Est Cr Clr Drug Dosing 119.9 ml/min 09/28/23 05:59 Est GFR ( Amer) 112.3 ml/min 09/28/23 05:59 Est GFR (Non-Af Amer) 96.9 ml/min 09/28/23 05:59 BUN/Creatinine Ratio 12.4 (10-20) 09/28/23 05:59 Glucose 100 mg/dl (70-99(Fasting)) H 09/28/23 05:59 Estimat Average Glucose 137 mg/dl 09/26/23 03:36 Hemoglobin A1c 6.4 % (4.5-5.6) H 09/26/23 03:36 Calcium 8.9 mg/dl (8.6-10.3) 09/28/23 05:59 Phosphorus 3.1 mg/dl (2.5-4.9) 09/27/23 05:47 Magnesium 2.1 mg/dl (1.7-2.4) 09/27/23 05:47 Total Bilirubin 0.5 mg/dl (0.2-1.0) 09/25/23 15:45 AST 27 U/L (13-39) 09/25/23 15:45 ALT 39 U/L (7-52) 09/25/23 15:45 Alkaline Phosphatase 46 U/L (34-104) 09/25/23 15:45 Troponin I High Sens 309.4 pg/ml (0-20) H* D 09/26/23 03:36 Total Protein 7.2 gm/dl (6.0-8.3) 09/25/23 15:45 Albumin 4.2 gm/dl (3.4-5.0) 09/25/23 15:45 Globulin 3.0 gm/dl (2.5-4.0) 09/25/23 15:45 Albumin/Globulin Ratio 1.4 (0.9-2) 09/25/23 15:45 Triglycerides 228 mg/dl (0-150) H 09/26/23 03:36 Cholesterol 274 mg/dl (0-200) H 09/26/23 03:36 LDL Cholesterol, Calc 186 mg/dl 09/26/23 03:36 VLDL Cholesterol, Calc 46 mg/dl (0-30) H 09/26/23 03:36 HDL Cholesterol 42 mg/dl 09/26/23 03:36 Cholesterol/HDL Ratio 6.5 (0-5) H 09/26/23 03:36 Lipase 24 U/L (11-82) 09/25/23 15:45 Impressions Chest X-Ray 09/25/23 15:39 XR chest 1V portable HISTORY: 53 years-old Male Chest pain, nonspecific COMPARISON: 03/28/2021 TECHNIQUE: AP view of the chest FINDINGS: Cardiac silhouette is enlarged. Median sternotomy. Bibasilar opacities. No pneumothorax, pleural effusion or overt pulmonary edema. Bones appear grossly intact. IMPRESSION: 1. Cardiomegaly without acute process of the chest. 2. Mild bibasilar opacities favor atelectasis. ACT 112: Negative or not required by law. The above report was generated using voice recognition software. It may contain grammatical, syntax or spelling errors. Electronically signed by: Jonathan Zapata M.D. 09/25/2023 4:13 PM Hospital Course (1) NSTEMI (non-ST elevated myocardial infarction): (2) CAD (coronary artery disease): (3) HTN (hypertension): (4) Hyperlipidemia: (5) Mood disorder: (6) Morbid obesity: (7) KADE (obstructive sleep apnea): Plan Ms. Chaparro 53-year-old male with PMH of CAD status post CABG x 5 in 2017, morbid obesity, dyslipidemia, prediabetes, KADE, incomplete right bundle branch block, mood disorder and other medical problems listed below who presented on 09/25 for chest pain and admitted for ACS r/o. Patient suspected of NSTEMI and started on IV heparin. Troponin peaked to 389. Patient reports stopping Crestor and Repatha, as well as daily aspirin---as he reports "because [he] just did." Patient's lipid panel consistent with reports. NSTEMI CAD s.p CABG x5v 2017 --Reports >1 month cessation of ASA and statin, as well as repatha --S/P Cardiac Cath:Severe galena vessel disease with patent HERRING to the LAD, patent SVG to RCA and PDA, patent free SILVIO to OM 2. --ECHO: Left ventricle is normal in size. Moderate concentric LVH. Left ventricle wall motion is normal. EF 60 to 60%. Grade 2 diastolic dysfunction. Left atrium is mildly dilated. Hydronephrosis moderate, without significant stenosis --Continue aspirin, lisinopril, statin, plan to resume Repatha as able Appreciate cardio input IV heparin discontinued Recurrent chest pain resolved with nitroglycerin Added Plavix 75 mg daily Counseled on medication compliance--agrees to take them regularly Metoprolol titrate changed to succinate 25 mg daily Will discharge on as needed nitroglycerin Needs follow-up with cardiology on discharge HLD Total 274, LDL 186 Resumed statin Encourage resumption of OP Repatha Prediabetes HbA1c 6.4 Morbid Obesity BMI 38.2 Encourage lifestyle changes KADE Encourage CPAP HS Mood disorder Chronic, stable Continue citalopram DVT Px: Heparin SQ Code Status Full Code Total Time Total Time Spent Total Time Spent (In Minutes): 56 minutes Discharge Plan Discharge Items Patient Disposition: Home - Self-Care Reason For Visit: NSTEMI Discharge Diagnosis: Non-ST elevated myocardial infarction Severe coronary artery disease Prediabetes Hyperlipidemia Activity: Per Instructions section Exercise/Sports: Wait until after follow-up appointment Non-emergency contact: Primary Care Provider and Deposition Reporter Call non-emergency contact if: you have any medication questions, your symptoms worsen, your pain is concerning for you and you have a fever Follow-up/Referrals: Yaya Bhakta MD [Primary Care Provider] - (Date & Time 10/04/2023 7:40 AM Provider Yaya Bhakta MD Department Family Medicine [facility] ) Diet: Heart Healthy Add Attending Provider Instructions: Follow-up with your primary care physician on 10/04/2023 7:40 AM Follow-up with your bench boring machine operator Dr. Puckett/Dr. Zuñiga as recommended by your bench boring machine operator -- Take your medications regularly as advised. -- Avoid NSAIDs like ibuprofen while on aspirin and Plavix which increases your risk for bleeding. Seek immediate medical attention if your symptoms reoccur or worsen Please take all medications as instructed on discharge list below. Please call if you have any questions or problems. You can reach a [facility] hospitalist on duty at [facility] 24 hours a day by calling [phone] Home Care: * Take your medications exactly as directed. Don't skip doses. * Remember that recovery after a heart attack takes time. Plan to rest for at lease 4-8 weeks while you recover. Then return to normal activity when your doctor says it's okay. * Ask your doctor about joining a heart rehabilitation program. * Tell your doctor if you are feeling depressed. Feelings of sadness are common after a heart attack, but it is important that you speak to someone if you are feeling overwhelmed by these feelings. * If you are having chest pain, call 911 for an ambulance. Do NOT drive yourself to the hospital. * Ask your family members to learn CPR. * Learn to take your own blood pressure and pulse. Keep a record of your results. Ask your doctor when you should seek emergency medical attention. He or she will tell you which blood pressure reading is dangerous. Lifestyle Changes: * Maintain a healthy weight. Get help to lose any extra pounds. * Cut back on salt. * Limit canned, dried, packaged, and fast foods. * Don't add salt to your food. * Season foods with herbs instead of salt when you cook. * Break the smoking habit. Enroll in a stop-smoking program to improve your chances of success. * Limit fatty foods. * Ask your doctor about having your lipid levels checked regularly. * Build up your activity according to your doctor's recommendation. * Ask your doctor when it's okay to resume sexual activity. * Tell your doctor about any erectile dysfunction (ED) medication you are taking. Some ED medications are not safe if you take certain heart medications. * Try to manage stress. Follow Up: It is important for you to keep your follow up appointments with your medical pr ovider. Addtl Warehouse Shift Supervisor Provider Instructions: ACTIVITY RECOMMENDATIONS: It is common to feel weak and fatigue for a few days. * Do not drive or operate any motorized equipment for the next three days. * Limit stair usage (2 or 3 trips a day only) for the next three days. * Do not lift anything heavier than 10 pounds for the next three days. * Do not engage in vigorous exercise or any sports for the next five days. * You may shower the day after your procedure, but do not immerse the area for three days. Cleanse the site gently with soap and water. SPECIAL CARE INSTRUCTIONS: * You may replace the pressure dressing or band-aid the morning after the procedure. * After your procedure, it is normal to have a small bruise or small lump at the site. Examine your site daily for any change in the bruise or lump, redness, swelling, drainage or numbness. Notify your doctor if any change. BLEEDING: * If there is a small amount of bleeding at the site, lie down and apply firm pressure with a clean cloth for ten minutes. When the bleeding stops, lie quietly keeping the procedure limb straight for six hours. Notify your doctor as soon as possible. * If the bleeding does not stop after ten minutes or if there is a large amount of bleeding or spurting, call 911 immediately. Continue to lie down and hold firm pressure until help arrives. SKIN IRRITATION: * You may experience some redness and/or swelling in the area where radiation was administered. If any skin irritation occurs, please contact your family physician. Pending Studies at Discharge: No Stand-Alone Forms: My [facility] Task Messenger, Work/School Release, Smoking Cessation Medications and DC Order Prescriptions: New clopidogrel 75 mg Tablet 75 mg PO QAM Qty: 30 1RF nitroglycerin [Nitrostat] 0.4 mg Tablet, Sublingual 0.4 mg sublingual Q5M PRN (Reason: chest pain) Qty: 30 0RF Rx Instructions: Maximum 3 doses within 15 minutes. Discuss with your bench boring machine operator after use for further instructions. metoprolol succinate 25 mg Tablet Extended Release 24 Hr 25 mg PO QAM Qty: 30 1RF aspirin [Children's Aspirin] 81 mg Tablet,Chewable 81 mg PO DAILY Qty: 30 1RF Continued acetaminophen [Tylenol Extra Strength] 500 mg Tablet 500 mg PO Q6H PRN (Reason: Pain) multivitamin [Multi-Vitamin] Tablet 1 tab PO DAILY citalopram 40 mg tablet 40 mg PO DAILY Qty: 30 1RF lisinopril 5 mg tablet 5 mg PO HS Qty: 30 1RF cholecalciferol (vitamin D3) [Vitamin D3] 25 mcg (1,000 unit) Capsule 25 mcg PO DAILY Qty: 30 0RF rosuvastatin 40 mg tablet 40 mg PO HS Qty: 30 1RF Rx Instructions: has not been taking Repatha SureClick 140 mg/mL pen injector 140 mg SUBCUT Q14D Qty: 2 0RF Rx Instructions: last took before Jeevan Discontinued ibuprofen 200 mg Tablet 600 mg PO Q6H PRN (Reason: Pain) Discharge Orders: Discharge Order (Routine); Ordered 09/29/23 Ordered By: Shane Shafer/Other Patient Handouts: Prediabetes, 5 Steps for Eating Healthier Admission Data Admit Date/Time: 09/25/23 17:04 Attending Provider: Shane Rosas Admit Provider: Rusty Tran Primary Care Provider: Yyaa Bhakta Other Providers: Fareed Mir; Rusty Tran
== END 2023-09-29 13:54 | disposition home or self-care (01) | DRG 282 ==
LOC: ED 15:28 → EDINP 17:04 → SUATTDRO 17:04 → 2S 18:59